=== PATIENT | female | born 1965 | race Caucasian/White ===

== ENCOUNTER 2016-09-26 13:12 | Emergency (ER) | payer MEDICARE, MEDICAID ==
[2016-09-26] MEDS ORDERED: predniSONE 20 MG TABLET ONE (13:31)
[2016-09-26] MEDS: predniSONE 20 MG TABLET PO STA (13:33)
--- NOTE | 2016-09-26 13:34 | ED Physician Documentation ---
PD HPI DYSPNEA - Stated complaint Stated Complaint: SOA - Chief complaint Chief Complaint: Resp - History obtained from History obtained from: Patient, Family - History of Present Illness Timing - onset: How many days ago (4) Timing - onset during: Rest Timing - duration: Days (4) Timing - details: Gradual onset Pain level max: 3 Pain level now: 3 Inciting event(s): Exposure (ie smoke) (states smokes a pack per day) Improved by: Inhaler/neb (states she is almost out of her albuterol.), Rest Worsened by: Exertion, Coughing Associated symptoms: Cough, Wheezing, Chest pain / discomfort (with coughing). No: Fever, Hemoptysis, Palpitations, Diaphoresis, Bilateral edema, Unilateral edema, Anxiety Similar symptoms before: Diagnosis (COPD) Recently seen: Not recently seen Review of Systems Ten Systems: 10 systems reviewed and negative Constitutional: denies: Fever, Chills Ears: denies: Ear pain GI: denies: Nausea, Vomiting, Diarrhea Skin: denies: Rash Musculoskeletal: denies: Neck pain, Back pain Neurologic: denies: Focal weakness, Numbness, Headache PD PAST MEDICAL HISTORY - Past Medical History Past Medical History: Yes Cardiovascular: Hypertension Respiratory: Pneumonia Neuro: Headache/migraine, Peripheral neuropathy Endocrine/Autoimmune: Type 2 diabetes, HyPOthyroidism GI: Ulcers : Kidney stones Psych: Depression, Anxiety, Bipolar disorder Musculoskeletal: Fibromyalgia, Chronic back pain - Past Surgical History Past Surgical History: Yes General: Cholecystectomy, Appendectomy 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, 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 HEENT: Other - Present Medications Home Medications: Ambulatory Orders Medication Instructions Recorded Confirmed DULoxetine [Cymbalta] 60 mg PO DAILY 06/16/13 09/26/16 Levothyroxine Sodium [Levoxyl] 250 mcg PO DAILY 06/16/13 09/26/16 QUEtiapine [SEROquel] 600 mg PO DAILY 06/16/13 09/26/16 oxyCODONE/ACET 5/325 [Percocet 5 5 mg PO DAILY 06/16/13 09/26/16 mg/325 mg] Glipizide 5 mg PO DAILY #30 tablet 09/05/14 09/26/16 Oxymorphone HCl [Oxymorphone HCl 10 mg PO DAILY 09/05/14 09/26/16 ER] Syring-Needl,Disp,Insul,0.3 ml 1 each MC DAILY #30 disp.syrin 09/05/14 09/26/16 [Insulin Syringe] Albuterol Sulfate [Proair Hfa 8.5 gm IH QID #1 hfa.aer.ad 07/25/15 09/26/16 Inhaler] Polyethylene Glycol 3350 [Miralax] 17 gm PO Q2H PRN #238 bottle 07/25/15 Albuterol Sulf [Ventolin Hfa 2 puffs INH Q4HR PRN #1 inhaler 09/26/16 Inhaler] Alprazolam [Xanax] 1 mg PO QPM PRN #5 tablet 09/26/16 Insulin Glargine [Lantus] 40 unit SUBQ QPM 09/26/16 09/26/16 Ipratropium/Albuterol [Combivent 1 puffs IH Q6H PRN #1 aer.w.adap 09/26/16 Respimat] Prednisone 40 mg PO DAILY #10 tablet 09/26/16 - Allergies Allergies/Adverse Reactions: Allergies Allergy/AdvReac Type Severity Reaction Status Date / Time No Known Drug Allergies Allergy Verified 09/26/16 13:19 - Social History Does the pt smoke?: Yes Smoking Status: Current every day smoker Does the pt drink ETOH?: No Does the pt have substance abuse?: No - Immunizations Immunizations are current?: Yes - POLST Patient has POLST: No PD ED PE NORMAL - Vitals Vital signs reviewed: Yes - General General: Alert and oriented X 3, No acute distress, Well developed/nourished - HEENT HEENT: PERRL, Moist mucous membranes - Neck Neck: Supple, no meningeal sign - Cardiac Cardiac: RRR, Strong equal pulses - Respiratory Respiratory: No respiratory distress, Other (Decreased breath sounds and wheezing bilaterally) - Abdomen Abdomen: Soft, Non tender, Non distended - Derm Derm: Warm and dry - Extremities Extremities: No edema, No calf tenderness / cord - Neuro Neuro: Alert and oriented X 3 - Psych Psych: Normal mood, Normal affect Results - Vitals Vitals: Vital Signs - 24 hr 09/26/16 09/26/16 09/26/16 13:15 13:35 13:50 Temperature 36.6 C Heart Rate 110 H 103 H 102 H Respiratory 23 18 18 Rate Blood Pressure 156/86 H 133/69 H O2 Saturation 96 97 09/26/16 09/26/16 14:35 15:13 Temperature Heart Rate 104 H 104 H Respiratory 18 15 Rate Blood Pressure 132/60 H O2 Saturation 99 Oxygen O2 Source Room air - Rads (name of study) cxr Radiology: Prelim report reviewed, EMP read contemporaneously, See rad report ( Subtle biapical pruning of the pulmonary vasculature, suggesting COPD. No acute cardiopulmonary abnormality. ) PD MEDICAL DECISION MAKING - ED course Complexity details: reviewed results, re-evaluated patient, considered differential, d/w patient, d/w family ED course: Patient presents to the emergency department with what appears to be a COPD flare. Feels better after steroids and albuterol and DuoNeb treatment. No hypoxia. No respiratory distress. No pneumonia. No fever. No sepsis. Will prescribe inhalers and steroids for home and have her follow-up with her doctor. She did ask if I could prescribe her a small amount of her Xanax as she is currently out of this. This was done. Patient counseled regarding signs and symptoms for which I believe and urgent re-evaluation would be necessary. Patient with good understanding of and agreement to plan and is comfortable going home at this time This document was made in part using voice recognition software. While efforts are made to proofread this document, sound alike and grammatical errors may occur. Departure - Departure Disposition: 01 Home, Self Care Clinical Impression: COPD exacerbation Condition: Good Instructions: ED COPD Flare Follow-Up: your,doctor in 1 week [Other] Prescriptions: Albuterol Sulf [Ventolin Hfa Inhaler] 2 puffs INH Q4HR PRN #1 inhaler PRN Reason: Wheezing Ipratropium/Albuterol [Combivent Respimat] 1 puffs IH Q6H PRN #1 aer.w.adap PRN Reason: dyspnea Prednisone 40 mg PO DAILY #10 tablet Alprazolam [Xanax] 1 mg PO QPM PRN #5 tablet PRN Reason: Anxiety Comments: Return if you worsen. Your blood pressure was elevated today on check in to the emergency department. This does not mean that you have hypertension, it is a common phenomenon to check into the emergency department and have elevated blood pressure. I recommend that you see your primary care physician within the week to have it rechecked when you're feeling better. Discharge Date/Time: 09/26/16 15:15
[2016-09-26] MEDS: IPRATROPIUM/ALBUTEROL 3 ML NEB INH STA (13:35)
[2016-09-26] MEDS ORDERED: IPRATROPIUM/ALBUTEROL 3 ML NEB INH ONE (13:36)
[2016-09-26] MEDS: ALBUTEROL NEB 2.5 MG/3 ML INH STA (14:35)
[2016-09-26] MEDS ORDERED: ALBUTEROL NEB 2.5 MG/3 ML INH ONE (14:37)
[2016-09-26 15:15] VITALS: BP 132/60
--- NOTE | 2016-09-26 15:26 | XRAY Preliminary Report ---
Exam: XR Chest 2 View PA/LAT IMPRESSION: 1. Subtle biapical pruning of the pulmonary vasculature, suggesting COPD. 2. No acute cardiopulmonary abnormality. [facility]
--- NOTE | 2016-09-26 15:28 | XRAY Report ---
EXAM: CHEST RADIOGRAPHY EXAM DATE: 09/26/2016 02:04 PM. CLINICAL HISTORY: Cough and dyspnea. COMPARISON: Chest radiograph and CTA chest 10/11/2014. TECHNIQUE: 2 views. FINDINGS: Lungs/Pleura: Normal volumes. Subtle biapical pruning of the pulmonary vasculature. No focal consolid ation, pleural effusion, or pneumothorax. Mediastinum: Normal cardiomediastinal contour. Other: Anterior fusion hardware in the lower cervical spine. IMPRESSION: 1. Subtle biapical pruning of the pulmonary vasculature, suggesting COPD. 2. No acute cardiopulmonary abnormality. [facility] Referring Provider Line: [phone]
== END 2016-09-26 15:15 | disposition home or self-care (01) ==
LOC: ED 13:12
DX: J44.1 Chronic obstructive pulmonary disease with (acute) exacerbation (principal); I10 Essential (primary) hypertension; E11.42 Type 2 diabetes mellitus with diabetic polyneuropathy; Z79.4 Long term (current) use of insulin; E03.9 Hypothyroidism, unspecified; M79.7 Fibromyalgia; Z87.11 Personal history of peptic ulcer disease; Z87.442 Personal history of urinary calculi; F17.200 Nicotine dependence, unspecified, uncomplicated
CPT/HCPCS: 71020; 94640; 99283; 99284

== ENCOUNTER 2016-11-05 18:23 | Emergency (ER) | payer MEDICARE, MEDICAID ==
[2016-11-05] MEDS ORDERED: oxyCOD/ACETAMIN 5 MG/325 MG TABLET PO STA (21:05)
[2016-11-05] MEDS ORDERED: DEXAMETHASONE 10 MG/ML VIAL IVP STA (21:05)
[2016-11-05] MEDS ORDERED: IPRATROPIUM/ALBUTEROL 3 ML NEB INH STA (21:05)
--- NOTE | 2016-11-05 21:06 | ED Physician Documentation ---
PD HPI ALTERED MENTAL STATUS - Stated complaint Stated Complaint: LETHARGIC - Chief complaint Chief Complaint: General - History obtained from History obtained from: Patient, Family - History of Present Illness Timing - onset: How many days ago (4-5 days of general weakness, feeling off balance, falling, aches and chills.) Timing - duration: Days Timing - details: Gradual onset, Still present Quality / character: Less responsive (tired and weak, with cough and wheezing. Using MDI at home). No: Disoriented, Memory Loss, Agitated Associated symptoms: Dyspnea, Cough, General weakness. No: Fever, Stiff neck, NVD (but less PO intake) Contributing factors: Diabetic, COPD, Recent illness (has current cough productive green sputum). No: Anticoagulated, New medication, Recent med change Basline status: Alert and oriented X 3, Ambulatory Similar symptoms before: Diagnosis (sepsis in the past, with pneumonia) Recently seen: Not recently seen Review of Systems Constitutional: reports: Chills, Myalgias, Fatigue. denies: Fever Nose: reports: Congestion. denies: Rhinorrhea / runny nose Throat: denies: Sore throat Cardiac: denies: Chest pain / pressure, Palpitations Respiratory: reports: Dyspnea, Cough, Wheezing GI: denies: Abdominal Pain, Nausea, Vomiting, Constipation, Diarrhea : denies: Dysuria, Frequency Skin: denies: Rash Musculoskeletal: denies: Extremity swelling Neurologic: reports: Generalized weakness. 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 HEENT: Other - Present Medications Home Medications: Ambulatory Orders Medication Instructions Recorded Confirmed DULoxetine [Cymbalta] 60 mg PO DAILY 06/16/13 09/26/16 Levothyroxine Sodium [Levoxyl] 250 mcg PO DAILY 06/16/13 09/26/16 QUEtiapine [SEROquel] 600 mg PO DAILY 01/03/14 04/15/17 oxyCODONE/ACET 5/325 [Percocet 5 5 mg PO DAILY 06/16/13 09/26/16 mg/325 mg] Glipizide 5 mg PO DAILY #30 tablet 09/05/14 09/26/16 Oxymorphone HCl [Oxymorphone HCl 10 mg PO DAILY 09/05/14 09/26/16 ER] Syring-Needl,Disp,Insul,0.3 ml 1 each MC DAILY #30 disp.syrin 09/05/14 09/26/16 [Insulin Syringe] Albuterol Sulfate [Proair Hfa 8.5 gm IH QID #1 hfa.aer.ad 07/25/15 09/26/16 Inhaler] Polyethylene Glycol 3350 [Miralax] 17 gm PO Q2H PRN #238 bottle 07/25/15 Albuterol Sulf [Ventolin Hfa 2 puffs INH Q4HR PRN #1 inhaler 09/26/16 Inhaler] Alprazolam [Xanax] 1 mg PO QPM PRN #5 tablet 09/26/16 Insulin Glargine [Lantus] 40 unit SUBQ QPM 09/26/16 09/26/16 Ipratropium/Albuterol [Combivent 1 puffs IH Q6H PRN #1 aer.w.adap 09/26/16 Respimat] Prednisone 40 mg PO DAILY #10 tablet 09/26/16 Azithromycin [Zithromax] 250 mg PO DAILY #6 tablet 11/05/16 Dexamethasone [Decadron] 4 mg PO DAILY #5 tablet 11/05/16 - Allergies Allergies/Adverse Reactions: Allergies Allergy/AdvReac Type Severity Reaction Status Date / Time No Known Drug Allergies Allergy Verified 09/26/16 13:19 - Social History Does the pt smoke?: Yes Smoking Status: Current every day smoker Does the pt drink ETOH?: No Does the pt have substance abuse?: No - Immunizations Immunizations are current?: Yes - POLST Patient has POLST: No PD ED PE NORMAL - Vitals Vital signs reviewed: Yes - General General: Alert and oriented X 3, No acute distress (seems tired and sleepy but not lethargic per se. ), Well developed/nourished - HEENT HEENT: Atraumatic, Pharynx benign - Neck Neck: Supple, no meningeal sign, No adenopathy - Cardiac Cardiac: RRR, No murmur - Respiratory Respiratory: No respiratory distress. No: Clear bilaterally (diffuse moderate wheezing, with cough) - Abdomen Abdomen: Normal bowel sounds, Soft, Non tender, Non distended - Female Female : Deferred - Rectal Rectal: Deferred - Back Back: No CVA TTP - Derm Derm: Normal color, Warm and dry - Extremities Extremities: No tenderness to palpate, Normal ROM s pain, No edema, No calf tenderness / cord - Neuro Neuro: Alert and oriented X 3, blood typer 2-12 intact, No motor deficit, Normal speech Results - Vitals Vitals: Oxygen O2 Source Room air - Labs Labs: Laboratory Tests 11/05/16 11/05/16 11/05/16 18:39 19:15 21:19 WBC 11.8 H RBC 4.80 Hgb 14.5 Hct 43.7 MCV 91.2 MCH 30.2 MCHC 33.1 RDW 13.5 Plt Count 324 MPV 8.1 Neut # Not Reportable Lymph # Not Reportable Wilkes # Not Reportable Eos # Not Reportable Baso # Not Reportable Absolute Nucleated RBC Not Reportable Total Counted 100 Band Neuts % (Manual) 1 Neutrophils # (Manual) 9.6 H Lymphocytes # (Manual) 1.7 Monocytes # (Manual) 0.5 Eosinophils # (Manual) 0.1 Nucleated RBCs Not Reportable Differential Comment MANUAL DIFFERENTIAL Platelet Estimate NORMAL (130-450,000) RBC Morph Micro Appear NORMAL APPEARANCE VBG pH VBG pCO2 VBG pO2 VBG HCO3 VBG Total CO2 VBG O2 Saturation VBG Base Excess Sodium Potassium Chloride Carbon Dioxide Anion Gap BUN Creatinine Estimated GFR (MDRD) Glucose POC Whole Bld Glucose 69 L 94 Lactic Acid Calcium Magnesium Total Bilirubin AST ALT Alkaline Phosphatase Total Protein Albumin Globulin Albumin/Globulin Ratio Lipase Urine Color Urine Clarity Urine pH Ur Specific [place] Urine Protein Urine Glucose (UA) Urine Ketones Urine Occult Blood Urine Nitrite Urine Bilirubin Urine Urobilinogen Ur Leukocyte Esterase Ur Microscopic Review Urine Culture Comments 11/05/16 11/05/16 11/05/16 21:19 21:19 21:19 WBC RBC Hgb Hct MCV MCH MCHC RDW Plt Count MPV Neut # Lymph # Wilkes # Eos # Baso # Absolute Nucleated RBC Total Counted Band Neuts % (Manual) Neutrophils # (Manual) Lymphocytes # (Manual) Monocytes # (Manual) Eosinophils # (Manual) Nucleated RBCs Differential Comment Platelet Estimate RBC Morph Micro Appear VBG pH 7.340 VBG pCO2 54.8 H VBG pO2 29.2 VBG HCO3 28.9 H VBG Total CO2 30.6 H VBG O2 Saturation 62.1 VBG Base Excess 1.8 Sodium 136 Potassium 3.9 Chloride 97 L Carbon Dioxide 31 Anion Gap 8.0 BUN 7 Creatinine 0.6 Estimated GFR (MDRD) 105 Glucose 146 H POC Whole Bld Glucose Lactic Acid 1.0 Calcium 9.1 Magnesium 1.8 Total Bilirubin 0.3 AST 37 ALT 36 Alkaline Phosphatase 142 H Total Protein 8.0 Albumin 3.8 Globulin 4.2 Albumin/Globulin Ratio 0.9 L Lipase 20 L Urine Color Urine Clarity Urine pH Ur Specific [place] Urine Protein Urine Glucose (UA) Urine Ketones Urine Occult Blood Urine Nitrite Urine Bilirubin Urine Urobilinogen Ur Leukocyte Esterase Ur Microscopic Review Urine Culture Comments 11/05/16 22:01 WBC RBC Hgb Hct MCV MCH MCHC RDW Plt Count MPV Neut # Lymph # Wilkes # Eos # Baso # Absolute Nucleated RBC Total Counted Band Neuts % (Manual) Neutrophils # (Manual) Lymphocytes # (Manual) Monocytes # (Manual) Eosinophils # (Manual) Nucleated RBCs Differential Comment Platelet Estimate RBC Morph Micro Appear VBG pH VBG pCO2 VBG pO2 VBG HCO3 VBG Total CO2 VBG O2 Saturation VBG Base Excess Sodium Potassium Chloride Carbon Dioxide Anion Gap BUN Creatinine Estimated GFR (MDRD) Glucose POC Whole Bld Glucose Lactic Acid Calcium Magnesium Total Bilirubin AST ALT Alkaline Phosphatase Total Protein Albumin Globulin Albumin/Globulin Ratio Lipase Urine Color YELLOW Urine Clarity CLEAR Urine pH 6.0 Ur Specific [place] 1.010 Urine Protein NEGATIVE Urine Glucose (UA) >=1000 H Urine Ketones NEGATIVE Urine Occult Blood NEGATIVE Urine Nitrite NEGATIVE Urine Bilirubin NEGATIVE Urine Urobilinogen 0.2 (NORMAL) Ur Leukocyte Esterase NEGATIVE Ur Microscopic Review NOT INDICATED Urine Culture Comments NOT INDICATED - Rads (name of study) CXR Radiology: Prelim report reviewed (bronchial thickening c/w bronchitis; no pneumonia) head CT Radiology: Prelim report reviewed (no acute process) PD MEDICAL DECISION MAKING - ED course Complexity details: reviewed results (no signs of sepsis, pneumonia, ICH - is tired and seems slightly slow to answer questions. Sats are good, but does have cough and wheezing. Seems a bit perkier here. In setting of COPD, would give steroids/ abx. She has inhaler at home.), considered differential, d/w patient Departure - Departure Disposition: 01 Home, Self Care Clinical Impression: Bronchitis, Asthma exacerbation in COPD, Decreased energy Condition: Stable Record reviewed to determine appropriate education?: Yes Instructions: ED Bronchitis Asthmatic Follow-Up: Lily Izaguirre PA-C [Primary Care Provider] - Prescriptions: Dexamethasone [Decadron] 4 mg PO DAILY #5 tablet Azithromycin [Zithromax] 250 mg PO DAILY #6 tablet Comments: Usual medications. Drink fluids regularly. Eat some small meal at least regularly. Zithromax and Decadron as directed for 5 more days for the bronchitis. Recheck with PCP next week. Discharge Date/Time: 11/05/16 23:13
[2016-11-05] MEDS ORDERED: DEXAMETHASONE 10 MG/ML VIAL ONE ×2 (21:07→23:00)
[2016-11-05] MEDS ORDERED: oxyCOD/ACETAMIN 5 MG/325 MG TABLET PO ONE (21:20)
[2016-11-05 21:26] LABS: HCT - HEMATOCRIT 43.7 % (37.0-47.0)
[2016-11-05 21:27] LABS: VBG BASE EXCESS 1.8 mmol/L (-2 - +2); VBG OXYGEN SATURATION 62.1 % (60-80); VBG PH 7.34 (7.31-7.41); VBG TOTAL CO2 30.6 mmol/L (24-29)
[2016-11-05 21:36] LABS: BASOPHILS % (AUTO) 0.7 %; EOSINOPHILS % (AUTO) 0.5 %; HGB - HEMOGLOBIN 14.5 g/dL (12.0-16.0); LYMPHOCYTES % (AUTO) 14.8 %; MEAN CORPUSCULAR HEMOGLOBIN 30.2 pg (27.0-31.0); MEAN CORPUSCULAR HGB CONC 33.1 g/dL (32.0-36.0); MEAN CORPUSCULAR VOLUME 91.2 fL (81.0-99.0); MEAN PLATELET VOLUME 8.1 fL (7.9-10.8); MONOCYTES % (AUTO) 8.7 %; NEUTROPHILS % (AUTO) 75.3 %; RED CELL DISTRIBUTION WIDTH 13.5 % (12.0-15.0); UNCORRECTED WHITE BLOOD COUNT 11.8 x10^3/uL; WHITE BLOOD COUNT 11.8 x10^3/uL (4.8-10.8)
[2016-11-05 21:40] LABS: ALBUMIN/GLOBULIN RATIO 0.9 (1.0-2.2); BILIRUBIN,TOTAL 0.3 mg/dL (0.2-1.0); CALCIUM 9.1 mg/dL (8.5-10.3); CREATININE 0.6 mg/dL (0.4-1.0); MAGNESIUM 1.8 mg/dL (1.7-2.8); POTASSIUM 3.9 mmol/L (3.5-5.0)
[2016-11-05 21:54] LABS: BAND NEUTROPHILS % (MANUAL) 1 %; EOSINOPHILS % (MANUAL) 1 %; LYMPHOCYTES % (MANUAL) 14 %; NEUTROPHILS % (MANUAL) 80 %; TOTAL CELLS COUNTED 100
[2016-11-05 21:55] LABS: NP AUTO DIFFERENTIAL? YES; NP MAN DIFFERENTIAL? NO; PLATELET ESTIMATE, MANUAL NORMAL (130-450,000) (NORMAL)
[2016-11-05] MEDS ORDERED: IPRATROPIUM/ALBUTEROL 3 ML NEB INH ONE (21:56)
--- NOTE | 2016-11-05 22:00 | CT Preliminary Report ---
Exam: CT Head W/O IMPRESSION: Normal head CT. [facility] SITE ID: [id number]
[2016-11-05 22:08] LABS: BILIRUBIN,URINE NEGATIVE (NEGATIVE)
--- NOTE | 2016-11-05 22:12 | XRAY Report ---
EXAM: CHEST RADIOGRAPHY EXAM DATE: 11/05/2016 09:47 PM. CLINICAL HISTORY: Cough and dyspnea/wheeze. COMPARISON: 09/26/2016. TECHNIQUE: 2 views. FINDINGS: Lungs/Pleura: Mild diffuse bronchial thickening. Normal lung volumes. No confluent lung consolidation . No pleural effusion or pneumothorax. Mediastinum: Heart and mediastinal contours are unremarkable. Other: None. IMPRESSION: Bronchial thickening suggesting bronchitis or reactive airway disease. No focal airspace consolidation. [facility] Referring Provider Line: [phone] SITE ID: [id number]
[2016-11-05 22:14] LABS: UA CHARGE (STRIP ONLY) YES; UR CULTURE IF IND NOT INDICATED
[2016-11-05] MEDS ORDERED: AZITHROMYCIN 250 MG TABLET PO STA (22:53)
[2016-11-05] MEDS ORDERED: DEXAMETHASONE 10 MG/ML VIAL PO STA (22:53)
[2016-11-05] MEDS ORDERED: CHERRY SYRUP 10 ML UDC PO ONE (23:00)
[2016-11-05] MEDS ORDERED: AZITHROMYCIN 250 MG TABLET PO ONE (23:00)
[2016-11-05 23:14] VITALS: BP 126/79
--- NOTE | 2016-11-06 12:45 | CT Report ---
EXAM: CT HEAD EXAM DATE: 11/05/2016 09:39 PM. CLINICAL HISTORY: Fell , with left parietal trauma. No loss of consciousness. Patient has been feelin g off balance for 4 months. COMPARISON: 10/11/2014. TECHNIQUE: Multiaxial CT images were obtained from the foramen magnum to the vertex. IV contrast: Non e. Reformats: Coronal. In accordance with CT protocol optimization, one or more of the following dose reduction techniques w ere utilized for this exam: automated exposure control, adjustment of mA and/or KV based on patient s ize, or use of iterative reconstructive technique. FINDINGS: Parenchyma: No intraparenchymal hemorrhage. No evidence of mass, midline shift, or CT findings of inf arction. Lopez-white differentiation is distinct. Extraaxial Spaces: Normal for age. No subdural or epidural collections identified. Ventricles: Normal in size and position. Sinuses: Imaged paranasal sinuses, orbits, and mastoids show no significant abnormality. Bones: No evidence of fracture or calvarial defect. Other: None. IMPRESSION: Normal head CT. [facility] Referring Provider Line: [phone] SITE ID: [id number]
== END 2016-11-05 23:13 | disposition home or self-care (01) ==
LOC: ED 18:23
DX: J44.1 Chronic obstructive pulmonary disease with (acute) exacerbation (principal); J45.901 Unspecified asthma with (acute) exacerbation; E11.9 Type 2 diabetes mellitus without complications; Z79.4 Long term (current) use of insulin; I10 Essential (primary) hypertension; E03.9 Hypothyroidism, unspecified; M79.7 Fibromyalgia; Z87.11 Personal history of peptic ulcer disease; Z87.442 Personal history of urinary calculi; F17.200 Nicotine dependence, unspecified, uncomplicated
CPT/HCPCS: 36415; 70450; 71020; 80053; 81003; 82803; 83605; 83690; 83735; 85025; 94640; 96374; 99284; A9270; J7620; 81001; 87086

== ENCOUNTER 2017-05-29 07:31 | Emergency (ER) | payer MEDICARE, MEDICAID ==
[2017-05-29] MEDS ORDERED: LIDOCAINE VISCOUS 2% 15 ML UDC MM STA (08:12)
[2017-05-29] MEDS ORDERED: SODIUM CHLORIDE 0.9% 1,000 ML IV ONE (08:12)
[2017-05-29] MEDS ORDERED: MAG HYDROX/AL HYDROX/SIMETH 30 ML UDC PO STA (08:12)
[2017-05-29] MEDS ORDERED: ONDANSETRON 4 MG/2 ML VIAL IVP STA (08:13)
--- NOTE | 2017-05-29 08:22 | ED Physician Documentation ---
PD HPI NVD - Stated complaint Stated Complaint: ABD PX - Chief complaint Chief Complaint: Abd Pain - History obtained from History obtained from: Patient, Family - History of Present Illness Timing - onset: How many days ago (5) Timing - duration: Days (5) Timing - details: Gradual onset, Still present Associated symptoms: Abdominal pain Contributing factors: Diabetes, Other (uses oxycodone daily) Improved by: Vomiting Worsened by: Eating, Position, Palpation Similar symptoms before: Diagnosis (SBO) Recently seen: Emergency Dept - Additonal information Additional information: 51-year-old female diabetic on regular oxycodone has developed nausea vomiting and now diarrhea as well. She was seen in the emergency department 2 days ago with abdominal pain and vomiting. She was given a dose of pain medication, improved, and she was prescribed a short course of hydrocodone. On her SON form it indicates that she filled her prescription for 112 oxycodone yesterday. I discussed with the patient the possibility of narcotic withdrawal and she does not feel that this is likely the cause of this even though she has not been able to hold down her pain medication. She relates that she was having this pain for several days prior to coming in to the ED and she continues to have the pain. She was constipated prior to her last visit and she has taken a suppository and now has had a large amount out. She points to the epigastric area as her source of pain. Review of Systems Constitutional: reports: Fatigue. denies: Fever, Chills Eyes: denies: Decreased vision Ears: denies: Ear pain Nose: denies: Rhinorrhea / runny nose, Congestion Throat: denies: Sore throat Cardiac: denies: Chest pain / pressure, Palpitations Respiratory: denies: Dyspnea, Cough, Wheezing GI: reports: Abdominal Pain, Nausea, Vomiting, Diarrhea : denies: Dysuria, Frequency Skin: denies: Rash Musculoskeletal: reports: Neck pain, Back pain Neurologic: denies: Generalized weakness, Focal weakness, Numbness PD PAST MEDICAL HISTORY - Past Medical History Past Medical History: Yes Cardiovascular: Hypertension Respiratory: COPD, Pneumonia Neuro: Headache/migraine, Peripheral neuropathy Endocrine/Autoimmune: Type 2 diabetes, HyPOthyroidism GI: Ulcers : Kidney stones Psych: Depression, Anxiety, Bipolar disorder Musculoskeletal: Fibromyalgia, Chronic back pain - Past Surgical History Past Surgical History: Yes General: Cholecystectomy, Appendectomy Ortho: 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, 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 HEENT: Other - Present Medications Home Medications: Ambulatory Orders Medication Instructions Recorded Confirmed DULoxetine [Cymbalta] 60 mg PO DAILY 06/16/13 05/29/17 Levothyroxine Sodium [Levoxyl] 250 mcg PO DAILY 06/16/13 05/29/17 QUEtiapine [SEROquel] 600 mg PO DAILY 06/16/13 05/29/17 oxyCODONE/ACET 5/325 [Percocet 5 5 mg PO DAILY 06/16/13 05/29/17 mg/325 mg] Syring-Needl,Disp,Insul,0.3 ml 1 each MC DAILY #30 disp.syrin 09/05/14 05/29/17 [Insulin Syringe] Albuterol Sulfate [Proair Hfa 8.5 gm IH QID #1 hfa.aer.ad 07/25/15 05/29/17 Inhaler] Alprazolam [Xanax] 1 mg PO QPM PRN #5 tablet 09/26/16 05/29/17 Insulin Glargine [Lantus] 50 unit SUBQ QPM 09/26/16 05/29/17 Ipratropium/Albuterol [Combivent 1 puffs IH Q6H PRN #1 aer.w.adap 09/26/1605/29 Respimat] Hydrocodone/Acetaminophen 1 - 2 each PO Q6H PRN #14 tablet 05/27/17 05/29/17 [Hydrocodon-Acetaminophen 5-325] Insulin Lispro [HumaLOG] 20 unit SUBQ BID 05/27/17 05/29/17 Ondansetron Odt [Zofran] 4 mg TL Q6H PRN #10 tablet 05/27/17 05/29/17 - Allergies Allergies/Adverse Reactions: Allergies Allergy/AdvReac Type Severity Reaction Status Date / Time No Known Drug Allergies Allergy Verified 05/29/17 07:40 - Social History Does the pt smoke?: Yes Smoking Status: Current every day smoker Does the pt drink ETOH?: No Does the pt have substance abuse?: No - Immunizations Immunizations are current?: Yes - POLST Patient has POLST: No PD ED PE NORMAL - Vitals Vital signs reviewed: Yes - General General: Alert and oriented X 3, Well developed/nourished, Other (51 y/o female appears to be in pain with 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 ) - HEENT HEENT: Atraumatic, PERRL, EOMI, Other (The left TM is clear the right is obscured by cerumen. ) - Neck Neck: Supple, no meningeal sign, No bony TTP - Cardiac Cardiac: RRR, No murmur - Respiratory Respiratory: No respiratory distress, Clear bilaterally - Abdomen Abdomen: Normal bowel sounds, Soft, Other (There is mild epigastric tenderness specifically and not tenderness elsewhere.) - Back Back: No CVA TTP, No spinal TTP - Derm Derm: Normal color, Warm and dry, No rash - Extremities Extremities: No deformity, No edema - Neuro Neuro: No motor deficit, No sensory deficit Eye Opening: Spontaneous Motor: Obeys Commands Verbal: Oriented GCS Score: 15 - Psych Psych: Normal mood Results - Vitals Vitals: Vital Signs - 24 hr 05/29/17 05/29/17 05/29/17 07:35 08:32 09:25 Temperature 98.2 C H 36.8 C Heart Rate 93 92 91 Respiratory 18 18 18 Rate Blood Pressure 177/106 H 187/103 H 178/100 H O2 Saturation 96 96 96 05/29/17 10:23 Temperature Heart Rate 90 Respiratory 18 Rate Blood Pressure 148/90 H O2 Saturation 97 Oxygen O2 Source Room air - Labs Labs: Laboratory Tests 05/29/17 05/29/17 05/29/17 08:50 08:50 08:50 WBC 16.1 H RBC 4.53 Hgb 14.4 Hct 41.4 MCV 91.4 MCH 31.8 H MCHC 34.8 RDW 14.3 Plt Count 314 MPV 7.5 L Neut # 13.3 H Lymph # 1.7 [place] # 1.0 Eos # 0.1 Baso # 0.0 Absolute Nucleated RBC 0.00 Nucleated RBC % 0.0 Sodium 132 L Potassium 3.9 Chloride 88 L Carbon Dioxide 28 Anion Gap 16.0 H BUN 15 Creatinine 0.7 Estimated GFR (MDRD) 88 L Glucose 291 H Calcium 9.9 Total Bilirubin 0.4 AST 27 ALT 28 Alkaline Phosphatase 119 Troponin I < 0.04 Total Protein 8.3 H Albumin 4.4 Globulin 3.9 Albumin/Globulin Ratio 1.1 Lipase 27 Urine Color Urine Clarity Urine pH Ur Specific Speculator Urine Protein Urine Glucose (UA) Urine Ketones Urine Occult Blood Urine Nitrite Urine Bilirubin Urine Urobilinogen Ur Leukocyte Esterase Ur Microscopic Review Urine Culture Comments 05/29/17 08:53 WBC RBC Hgb Hct MCV MCH MCHC RDW Plt Count MPV Neut # Lymph # [place] # Eos # Baso # Absolute Nucleated RBC Nucleated RBC % Sodium Potassium Chloride Carbon Dioxide Anion Gap BUN Creatinine Estimated GFR (MDRD) Glucose Calcium Total Bilirubin AST ALT Alkaline Phosphatase Troponin I Total Protein Albumin Globulin Albumin/Globulin Ratio Lipase Urine Color DARK YELLOW Urine Clarity c Urine pH 6.0 Ur Specific Speculator 1.025 Urine Protein NEGATIVE Urine Glucose (UA) 500 H Urine Ketones NEGATIVE Urine Occult Blood NEGATIVE Urine Nitrite NEGATIVE Urine Bilirubin NEGATIVE Urine Urobilinogen 0.2 (NORMAL) Ur Leukocyte Esterase NEGATIVE Ur Microscopic Review NOT INDICATED Urine Culture Comments NOT INDICATED Procedures - IVC sono (time) 0818 Bedside IVC sono: IVC measures (cm) (1.11), IVC collapsed c insp (cm) (complete) , Dehydration PD MEDICAL DECISION MAKING - ED course Complexity details: reviewed old records, reviewed results, re-evaluated patient , considered differential, d/w patient, d/w family ED course: 51 y/o female diabetic with epigastric pain, vomiting and dehydration has continued pain after her recent visit to the ED. The timing of the visit initially is consistent with narcotic withdrawal. She was seen here on 05-27-17 with vomiting and abdominal pain and her refill was on 05-28-17. Her pain persisted after her refill and her sugars have been high and she is dehydrated. She is given a GI cocktail with minimal relief and when she is given IV dilaudid she is almost instantly better. 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 I discussed with her the likely gandhi that this is narcotic withdrawl as she was not able to keep her narcotic down yesterday and she reluctantly agrees that this is the most likely explanation. Her sugars have been running high and she has not been using sliding scale insulin because she does not understand how to dose it. She is in the process of making an appointment for diabetic teaching at the [facility] clinic. Today we provided IV hydration and IV regular insulin 5units. 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
[2017-05-29] MEDS ORDERED: HYDROmorphone 1 MG/ML SYRINGE IVP STA (08:58)
[2017-05-29 09:31] LABS: BASOPHILS % (AUTO) 0.3 %; EOSINOPHILS # (AUTO) 0.1 10^3/uL (0.0-0.7); EOSINOPHILS % (AUTO) 0.4 %; HCT - HEMATOCRIT 41.4 % (37.0-47.0); HGB - HEMOGLOBIN 14.4 g/dL (12.0-16.0); LYMPHOCYTES # (AUTO) 1.7 10^3/uL (1.5-3.5); LYMPHOCYTES % (AUTO) 10.4 %; MEAN CORPUSCULAR HEMOGLOBIN 31.8 pg (27.0-31.0); MEAN CORPUSCULAR HGB CONC 34.8 g/dL (32.0-36.0); MEAN CORPUSCULAR VOLUME 91.4 fL (81.0-99.0); MEAN PLATELET VOLUME 7.5 fL (7.9-10.8); MONOCYTES % (AUTO) 6.2 %; NEUTROPHILS # (AUTO) 13.3 10^3/uL (1.5-6.6); NEUTROPHILS % (AUTO) 82.7 %; RED BLOOD COUNT 4.53 10^6/uL (4.20-5.40); RED CELL DISTRIBUTION WIDTH 14.3 % (12.0-15.0); UNCORRECTED WHITE BLOOD COUNT 16.1 x10^3/uL; WHITE BLOOD COUNT 16.1 x10^3/uL (4.8-10.8)
[2017-05-29 09:44] LABS: ALBUMIN/GLOBULIN RATIO 1.1 (1.0-2.2); BILIRUBIN,TOTAL 0.4 mg/dL (0.2-1.0); CALCIUM 9.9 mg/dL (8.5-10.3); CREATININE 0.7 mg/dL (0.4-1.0); POTASSIUM 3.9 mmol/L (3.5-5.0); TOTAL PROTEIN 8.3 g/dL (6.7-8.2)
[2017-05-29] MEDS ORDERED: INSULIN REGULAR HUMAN 100 UNIT/1 ML 10 ML MDV IVP STA (09:45)
[2017-05-29 11:40] LABS: BILIRUBIN,URINE NEGATIVE (NEGATIVE); UA CHARGE (STRIP ONLY) YES; UR CULTURE IF IND NOT INDICATED
[2017-05-29 11:54] VITALS: BP 152/95
== END 2017-05-29 11:59 | disposition home or self-care (01) ==
LOC: ED 07:31
DX: E86.0 Dehydration (principal); R10.13 Epigastric pain; R11.2 Nausea with vomiting, unspecified; R19.7 Diarrhea, unspecified; F11.23 Opioid dependence with withdrawal; T40.2X5A Adverse effect of other opioids, initial encounter; E11.65 Type 2 diabetes mellitus with hyperglycemia; E11.42 Type 2 diabetes mellitus with diabetic polyneuropathy; Z79.4 Long term (current) use of insulin; I10 Essential (primary) hypertension; E03.9 Hypothyroidism, unspecified; F17.200 Nicotine dependence, unspecified, uncomplicated
CPT/HCPCS: 36415; 80053; 81003; 83690; 84484; 85025; 96361; 96374; 96375; 99284; A9270; J1170; J1815; 81001; 87086

== ENCOUNTER 2017-08-24 13:03 | Emergency (ER) | payer MEDICARE, MEDICAID ==
--- NOTE | 2017-08-24 13:52 | ED Physician Documentation ---
PD HPI FOCAL NEURO - Stated complaint Stated Complaint: LT SIDE FACIAL DROOP - Chief complaint Chief Complaint: Neuro - History obtained from History obtained from: Patient - History of Present Illness Timing - onset: Today (she awoke with left facial droop that has worsened through the morning. Has left sided headache and ear/faical pain as well.) Timing - duration: Hours Timing - details: Gradual onset, Still present Severity of deficit: Moderate Weakness: Face, Left. No: Arm, Hand, Leg, Foot Numbness: No: Face Associated symptoms: Headache. No: Nausea / vomiting, Head injury, Chest pain, Neck pain, Back pain, Fever Contributing factors: negative: Anticoagulated, Vascular dz, Atrial fibrillation Baseline status: positive: A&OX3, ambulatory, indep Similar symptoms before: Has not had sx before Recently seen: Not recently seen Review of Systems Constitutional: denies: Fever, Chills, Myalgias Eyes: denies: Loss of vision, Decreased vision, Photophobia Ears: denies: Ear pain, Drainage/discharge Nose: denies: Rhinorrhea / runny nose, Congestion Throat: denies: Sore throat Cardiac: denies: Chest pain / pressure, Palpitations Respiratory: denies: Dyspnea, Cough GI: denies: Abdominal Pain, Nausea, Vomiting : denies: Dysuria, Frequency Skin: denies: Rash, Lesions Neurologic: reports: Focal weakness (left face). 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 HEENT: Other - Present Medications Home Medications: Ambulatory Orders Medication Instructions Recorded Confirmed DULoxetine [Cymbalta] 60 mg PO DAILY 06/16/13 05/29/17 Levothyroxine Sodium [Levoxyl] 250 mcg PO DAILY 06/16/13 05/29/17 QUEtiapine [SEROquel] 600 mg PO DAILY 06/16/13 05/29/17 oxyCODONE/ACET 5/325 [Percocet 5 5 mg PO DAILY 06/16/13 05/29/17 mg/325 mg] Syring-Needl,Disp,Insul,0.3 ml 1 each MC DAILY #30 disp.syrin 09/05/14 05/29/17 [Insulin Syringe] Albuterol Sulfate [Proair Hfa 8.5 gm IH QID #1 hfa.aer.ad 07/25/15 05/29/17 Inhaler] Alprazolam [Xanax] 1 mg PO QPM PRN #5 tablet 09/26/16 05/29/17 Insulin Glargine [Lantus] 50 unit SUBQ QPM 09/26/16 05/29/17 Ipratropium/Albuterol [Combivent 1 puffs IH Q6H PRN #1 aer.w.adap 09/26/1605/29 Respimat] Hydrocodone/Acetaminophen 1 - 2 each PO Q6H PRN #14 tablet 05/27/17 05/29/17 [Hydrocodon-Acetaminophen 5-325] Insulin Lispro [HumaLOG] 20 unit SUBQ BID 05/27/17 05/29/17 Ondansetron Odt [Zofran] 4 mg TL Q6H PRN #10 tablet 05/27/17 05/29/17 Acyclovir 800 mg PO 5XD #30 tablet 08/24/17 Dexamethasone [Decadron] 4 mg PO DAILY #5 tablet 08/24/17 Oxycodone HCl/Acetaminophen 1 each PO Q6H PRN #15 tablet 08/24/17 [Percocet 5-325 mg Tablet] - Allergies Allergies/Adverse Reactions: Allergies Allergy/AdvReac Type Severity Reaction Status Date / Time No Known Drug Allergies Allergy Verified 05/29/17 07:40 - Social History Does the pt smoke?: Yes Smoking Status: Current every day smoker Does the pt drink ETOH?: No Does the pt have substance abuse?: No - Immunizations Immunizations are current?: Yes - POLST Patient has POLST: No PD ED PE NORMAL - Vitals Vital signs reviewed: Yes - General General: Alert and oriented X 3, No acute distress, Well developed/nourished - HEENT HEENT: PERRL, EOMI, Ears normal, Pharynx benign - Neck Neck: Supple, no meningeal sign, No adenopathy, No bruit - Cardiac Cardiac: RRR, No murmur - Respiratory Respiratory: Clear bilaterally - Abdomen Abdomen: Soft, Non tender - Derm Derm: Normal color, Warm and dry - Extremities Extremities: No deformity, No tenderness to palpate, Normal ROM s pain - Neuro Neuro: Alert and oriented X 3, Normal speech. No: groundsman 2-12 intact (left facial palsy around mouth and lower lid. Possible subtle involvement of forehead as well. ) Eye Opening: Spontaneous Motor: Obeys Commands Verbal: Oriented GCS Score: 15 - Psych Psych: Normal mood, Normal affect NIHSS - Level of Consciousness Level of consciousness: (0) Alert, Keenly responsive LOC Questions: (0) Answers both Q's correct LOC Commands: (0) Performs both correctly - Gaze Best Gaze: (0) Normal - Visual Visual: (0) No loss - Facial Palsy Facial Palsy: (1) Minor paralysis - Motor Arms (both separate) Motor Arm (right): (0) No drift Motor Arm (left): (0) No drift - Motor Legs (both separate) Motor Leg (right): (0) No drift Motor Leg (left): (0) No drift - Limb Ataxia Limb Ataxia: (0) Absent - Sensory Sensory: (0) Normal - Best Language Best Language: (0) No aphasia - Dysarthria Dysarthria: (0) Normal - Extinction and Inattention (formally neg Extinction and inattention: (0) No abnormality - Total Score/Results Total Score/Result: 1 Results - Vitals Vitals: Oxygen O2 Source Room air - Labs Labs: Laboratory Tests 08/24/17 08/24/17 08/24/17 13:14 14:22 14:22 WBC 9.1 RBC 4.42 Hgb 14.4 Hct 40.8 MCV 92.4 MCH 32.7 H MCHC 35.4 RDW 13.6 Plt Count 300 MPV 6.9 L Neut # 5.8 Lymph # 2.5 [place] # 0.5 Eos # 0.2 Baso # 0.1 Absolute Nucleated RBC 0.01 Nucleated RBC % 0.1 ESR 17 Sodium Potassium Chloride Carbon Dioxide Anion Gap BUN Creatinine Estimated GFR (MDRD) Glucose POC Whole Bld Glucose 213 H Calcium Magnesium Total Bilirubin AST ALT Alkaline Phosphatase Total Protein Albumin Globulin Albumin/Globulin Ratio Lipase 08/24/17 14:22 WBC RBC Hgb Hct MCV MCH MCHC RDW Plt Count MPV Neut # Lymph # [place] # Eos # Baso # Absolute Nucleated RBC Nucleated RBC % ESR Sodium 132 L Potassium 3.8 Chloride 97 L Carbon Dioxide 27 Anion Gap 8.0 BUN 10 Creatinine 0.8 Estimated GFR (MDRD) 75 L Glucose 152 H POC Whole Bld Glucose Calcium 9.3 Magnesium 1.7 Total Bilirubin 0.2 AST 25 ALT 26 Alkaline Phosphatase 105 Total Protein 7.7 Albumin 4.3 Globulin 3.4 Albumin/Globulin Ratio 1.3 Lipase 21 L - Rads (name of study) brain MRI Radiology: Prelim report reviewed (no acute process seen) PD MEDICAL DECISION MAKING - ED course Complexity details: reviewed results (facial drooping lower face with faint/ subtle involvement of the forehead (?) so was not certain of facial nerve vs. central and she had facial pain to left ear/head area, so got MRI imaging which was okay. More confidently then facial nerve palsy. ), re-evaluated patient, considered differential, d/w patient Departure - Departure Disposition: Home, Self Care Clinical Impression: Weakness on left side of face, Facial pain, Green palsy Condition: Stable Record reviewed to determine appropriate education?: Yes Instructions: ED [place] P[facility]y Follow-Up: Lily Izaguirre PA-C [Primary Care Provider] - Prescriptions: Acyclovir 800 mg PO 5XD #30 tablet Dexamethasone [Decadron] 4 mg PO DAILY #5 tablet Oxycodone HCl/Acetaminophen [Percocet 5-325 mg Tablet] 1 each PO Q6H PRN #15 tablet PRN Reason: Pain Comments: No signs of stroke, tumors, bleeding, other pathology on the MRI of the brain. It would then be consistent with Green palsy which is a inflammation of the facial nerve. This sometimes is caused by her viral inflammation and so we commonly treated with antiviral acyclovir 5 times a day for 6 days. We try to decrease inflammation of the nerve with Decadron steroid daily for 5 days. However if you find your blood sugars elevating excessively then stop that. Use Tylenol or ibuprofen if needed for pains. Add Percocet if needed for worse pain. Follow-up with your primary care this week, call for an appointment. Discharge Date/Time: 08/24/17 17:16
[2017-08-24] MEDS ORDERED: HYDROmorphone 1 MG/ML SYRINGE IVP STA ×2 (14:13→16:34)
[2017-08-24] MEDS ORDERED: ACETAMINOPHEN 325 MG TABLET PO STA (14:13)
[2017-08-24 14:29] LABS: BASOPHILS # (AUTO) 0.1 10^3/uL (0.0-0.1); BASOPHILS % (AUTO) 0.8 %; EOSINOPHILS # (AUTO) 0.2 10^3/uL (0.0-0.7); EOSINOPHILS % (AUTO) 1.7 %; HGB - HEMOGLOBIN 14.4 g/dL (12.0-16.0); LYMPHOCYTES # (AUTO) 2.5 10^3/uL (1.5-3.5); LYMPHOCYTES % (AUTO) 27.7 %; MEAN CORPUSCULAR HEMOGLOBIN 32.7 pg (27.0-31.0); MEAN CORPUSCULAR HGB CONC 35.4 g/dL (32.0-36.0); MEAN CORPUSCULAR VOLUME 92.4 fL (81.0-99.0); MEAN PLATELET VOLUME 6.9 fL (7.9-10.8); MONOCYTES # (AUTO) 0.5 10^3/uL (0.0-1.0); MONOCYTES % (AUTO) 5.9 %; NEUTROPHILS # (AUTO) 5.8 10^3/uL (1.5-6.6); NEUTROPHILS % (AUTO) 63.9 %; PLT - PLATELET COUNT 300 10^3/uL (130-450); RED BLOOD COUNT 4.42 10^6/uL (4.20-5.40); RED CELL DISTRIBUTION WIDTH 13.6 % (12.0-15.0); WHITE BLOOD COUNT 9.1 x10^3/uL (4.8-10.8)
[2017-08-24 14:48] LABS: ALBUMIN 4.3 g/dL (3.2-5.5); ALBUMIN/GLOBULIN RATIO 1.3 (1.0-2.2); BILIRUBIN,TOTAL 0.2 mg/dL (0.2-1.0); CALCIUM 9.3 mg/dL (8.5-10.3); CREATININE 0.8 mg/dL (0.4-1.0); MAGNESIUM 1.7 mg/dL (1.7-2.8); TOTAL PROTEIN 7.7 g/dL (6.7-8.2)
--- NOTE | 2017-08-24 16:04 | MRI Report ---
EXAM: MRI BRAIN WITHOUT CONTRAST EXAM DATE: 08/24/2017 03:44 PM. CLINICAL HISTORY: Left-sided facial droop, arm numbness COMPARISON: CT head 11/05/2016 TECHNIQUE: Multiplanar, multisequence T1-weighted and fluid-sensitive MR sequences of the brain were performed. Sequences optimized for routine evaluation. Other: None. IV Contrast: None. FINDINGS: Brain Volume: Normal for age. Parenchyma/Dura: No mass, acute infarct or hemorrhage. Few scattered subcortical T2/FLAIR hyperintens e white matter lesions. No parenchymal foci of susceptibility artifact. Ventricles/Cisterns: No hydrocephalus. No abnormal extra-axial fluid collection or hemorrhage. Orbits: Symmetric and unremarkable. Sella Turcica: The pituitary gland appears enlarged, measuring approximately 11 x 8 x 10 mm (AP by tr ansverse by craniocaudal) IAC: Symmetric and unremarkable. Vasculature: Normal signal flow void is seen in the major arterial structures at the skull base. Sinuses: No acute appearing sinus disease. Bones: No focal pathologic appearing marrow signal changes. Other: Moderate degenerative spondylosis of the visualized upper cervical spine with likely prior ACD F. IMPRESSION: 1. No MRI evidence of acute intracranial abnormality. Specifically, no evidence of acute or subacute infarct, acute intracranial hemorrhage, mass, midline shift, or hydrocephalus. 2. The pituitary gland appears enlarged, measuring approximately 11 x 8 x 10 mm (AP by transverse by craniocaudal). The evaluation on this noncontrast, nondedicated study is limited. Possibility of pitu itary lesion such as pituitary adenoma is not excluded. As clinically indicated, this may be further evaluated with a dedicated contrast enhanced pituitary protocol MRI, which may be performed non-emerg ently. 3. Few scattered subcortical white matter T2/FLAIR hyperintensities, nonspecific, and can be seen wit h the entire gamut of white matter conditions, including migraine headaches and as sequela of chronic microangiopathy. [facility] Referring Provider Line: [phone] SITE ID: [id number]
[2017-08-24] MEDS ORDERED: KETOROLAC 60 MG/2 ML VIAL IVP STA (16:34)
[2017-08-24] MEDS ORDERED: ACYCLOVIR 200 MG CAPSULE PO STA (16:35)
[2017-08-24] MEDS ORDERED: DEXAMETHASONE 10 MG/ML VIAL IVP STA (16:35)
[2017-08-24 17:13] VITALS: BP 154/92
== END 2017-08-24 17:16 | disposition home or self-care (01) ==
LOC: ED 13:03
DX: G51.0 Bell's palsy (principal); I10 Essential (primary) hypertension; E11.42 Type 2 diabetes mellitus with diabetic polyneuropathy; E03.9 Hypothyroidism, unspecified; F17.200 Nicotine dependence, unspecified, uncomplicated; Z79.4 Long term (current) use of insulin
CPT/HCPCS: 36415; 70551; 80053; 83690; 83735; 85025; 85651; 96374; 96375; 96376; 99283; 99284; A9270; J1170

== ENCOUNTER 2017-10-09 09:45 | Emergency (ER) | payer MEDICARE, MEDICAID ==
--- NOTE | 2017-10-09 09:56 | ED Physician Documentation ---
PD HPI ABD PAIN - Stated complaint Stated Complaint: ABD PX/VOMITING - Chief complaint Chief Complaint: Abd Pain - History obtained from History obtained from: Patient - History of Present Illness Timing - onset: How many days ago (3-4 days of nausea with some vomiting, mid abd cramping pain. No diarrhea. Symptoms worse today, so vomiting her usual medications, including pain meds.) Timing - duration: Days (some cramping for days with nausea; pain worse today and also out of her usual pain meds as took extra doses after vomiting up the past few days.) Timing - details: Gradual onset, Waxing and waning Quality: Cramping, Aching, Pain Location: Periumbilical, Suprapubic Radiation: Lower back Worsened by: Eating Associated symptoms: Nausea, Vomiting, Loss of appetite. No: Fever, Hematemesis , Diarrhea, Melena, Hematochezia, Dysuria, Near syncope / syncope Similar symptoms before: Diagnosis (has had similar without particular dx a couple of times. Has had this with Dx SBO and hospitalized for several days last years. Nonsurgical improvement.) Review of Systems Constitutional: reports: Myalgias (chronic due to FM). denies: Fever, Chills Nose: denies: Rhinorrhea / runny nose, Congestion Throat: denies: Sore throat Respiratory: denies: Cough GI: reports: Abdominal Pain, Nausea, Vomiting, Constipation. denies: Abdominal Swelling, Diarrhea, Hematemesis, Bloody / black stool : denies: Dysuria, Frequency Neurologic: reports: Generalized weakness. 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, Tubal ligation HEENT: Other - Present Medications Home Medications: Ambulatory Orders Medication Instructions Recorded Confirmed DULoxetine [Cymbalta] 60 mg PO DAILY 06/16/13 05/29/17 Levothyroxine Sodium [Levoxyl] 250 mcg PO DAILY 06/16/13 05/29/17 QUEtiapine [SEROquel] 600 mg PO DAILY 06/16/13 05/29/17 oxyCODONE/ACET 5/325 [Percocet 5 5 mg PO DAILY 06/16/13 05/29/17 mg/325 mg] Syring-Needl,Disp,Insul,0.3 ml 1 each MC DAILY #30 disp.syrin 09/05/14 05/29/17 [Insulin Syringe] Albuterol Sulfate [Proair Hfa 8.5 gm IH QID #1 hfa.aer.ad 07/25/15 05/29/17 Inhaler] Alprazolam [Xanax] 1 mg PO QPM PRN #5 tablet 09/26/16 05/29/17 Insulin Glargine [Lantus] 50 unit SUBQ QPM 09/26/16 05/29/17 Ipratropium/Albuterol [Combivent 1 puffs IH Q6H PRN #1 aer.w.adap 09/26/1605/29 Respimat] Hydrocodone/Acetaminophen 1 - 2 each PO Q6H PRN #14 tablet 05/27/17 05/29/17 [Hydrocodon-Acetaminophen 5-325] Insulin Lispro [HumaLOG] 20 unit SUBQ BID 05/27/17 05/29/17 Ondansetron Odt [Zofran] 4 mg TL Q6H PRN #10 tablet 05/27/17 05/29/17 Acyclovir 800 mg PO 5XD #30 tablet 08/24/17 Dexamethasone [Decadron] 4 mg PO DAILY #5 tablet 08/24/17 Oxycodone HCl/Acetaminophen 1 each PO Q6H PRN #15 tablet 08/24/17 [Percocet 5-325 mg Tablet] Fluconazole [Diflucan] 150 mg PO ONCE #1 tablet 10/09/17 Metronidazole [Flagyl] 500 mg PO BID #14 tablet 10/09/17 Ondansetron Odt [Zofran] 4 mg TL Q6H PRN #20 tablet 10/09/17 Oxycodone HCl/Acetaminophen 1 each PO Q6H PRN #25 tablet 10/09/17 [Percocet 5-325 mg Tablet] - Allergies Allergies/Adverse Reactions: Allergies Allergy/AdvReac Type Severity Reaction Status Date / Time No Known Drug Allergies Allergy Verified 05/29/17 07:40 - Social History Does the pt smoke?: Yes Smoking Status: Current every day smoker Does the pt drink ETOH?: No Does the pt have substance abuse?: No - Immunizations Immunizations are current?: Yes - POLST Patient has POLST: No PD ED PE NORMAL - Vitals Vital signs reviewed: Yes - General General: Alert and oriented X 3, Well developed/nourished - HEENT HEENT: Moist mucous membranes, Pharynx benign - Neck Neck: Supple, no meningeal sign, No adenopathy - Cardiac Cardiac: RRR, No murmur - Respiratory Respiratory: Clear bilaterally - Abdomen Abdomen: Normal bowel sounds, Soft, Non distended, No organomegaly, Other ( tender mid abd with lessened bowel sounds. Not distended. ) - Female Female : Deferred - Rectal Rectal: Deferred - Back Back: No CVA TTP - Derm Derm: Normal color, Warm and dry - Extremities Extremities: No tenderness to palpate, Normal ROM s pain, No edema, No calf tenderness / cord - Neuro Neuro: Alert and oriented X 3, No motor deficit, Normal speech Results - Vitals Vitals: Vital Signs - 24 hr 10/09/17 10/09/17 10/09/17 09:49 12:36 13:00 Temperature 35.4 C L Heart Rate 98 90 88 Respiratory 22 16 15 Rate Blood Pressure 192/100 H 159/96 H 147/90 H O2 Saturation 98 97 98 Oxygen O2 Source Room air - Labs Labs: Laboratory Tests 10/09/17 10/09/17 10/09/17 10:18 10:18 10:53 WBC 11.8 H RBC 4.91 Hgb 15.8 Hct 46.1 MCV 93.9 MCH 32.1 H MCHC 34.2 RDW 13.8 Plt Count 347 MPV 7.6 L Neut # Not Reportable Lymph # Not Reportable [place] # Not Reportable Eos # Not Reportable Baso # Not Reportable Absolute Nucleated RBC Not Reportable Total Counted 100 Band Neuts % (Manual) 1 Reactive Lymphs % (Man) 3 Abnorm Lymph % (Manual) 0 Nucleated RBC % Not Reportable Neutrophils # (Manual) 9.7 H Lymphocytes # (Manual) 1.2 L Monocytes # (Manual) 0.8 Eosinophils # (Manual) 0.0 Basophils # (Manual) 0.1 Differential Comment MANUAL DIFFERENTIAL Manual Slide Review Indicated Platelet Estimate NORMAL (130-450,000) Platelet Morphology 1+ GIANT PLATELETS RBC Morph Micro Appear 1+ ANISOCYTOSIS Sodium 132 L Potassium 4.0 Chloride 93 L Carbon Dioxide 27 Anion Gap 12.0 BUN 17 Creatinine 0.8 Estimated GFR (MDRD) 75 L Glucose 335 H Lactic Acid Calcium 10.5 H Magnesium Total Bilirubin 0.4 AST 19 ALT 23 Alkaline Phosphatase 120 Total Protein 8.3 H Albumin 4.9 Globulin 3.4 Albumin/Globulin Ratio 1.4 Lipase 27 Urine Color YELLOW Urine Clarity CLEAR Urine pH 7.0 Ur Specific [place] 1.020 Urine Protein NEGATIVE Urine Glucose (UA) >=1000 H Urine Ketones NEGATIVE Urine Occult Blood NEGATIVE Urine Nitrite NEGATIVE Urine Bilirubin NEGATIVE Urine Urobilinogen 0.2 (NORMAL) Ur Leukocyte Esterase NEGATIVE Ur Microscopic Review NOT INDICATED Urine Culture Comments NOT INDICATED Urine HCG, Qual NEGATIVE 10/09/17 10/09/17 11:05 11:05 WBC RBC Hgb Hct MCV MCH MCHC RDW Plt Count MPV Neut # Lymph # [place] # Eos # Baso # Absolute Nucleated RBC Total Counted Band Neuts % (Manual) Reactive Lymphs % (Man) Abnorm Lymph % (Manual) Nucleated RBC % Neutrophils # (Manual) Lymphocytes # (Manual) Monocytes # (Manual) Eosinophils # (Manual) Basophils # (Manual) Differential Comment Manual Slide Review Platelet Estimate Platelet Morphology RBC Morph Micro Appear Sodium Potassium Chloride Carbon Dioxide Anion Gap BUN Creatinine Estimated GFR (MDRD) Glucose Lactic Acid 1.6 Calcium Magnesium 1.8 Total Bilirubin AST ALT Alkaline Phosphatase Total Protein Albumin Globulin Albumin/Globulin Ratio Lipase Urine Color Urine Clarity Urine pH Ur Specific [place] Urine Protein Urine Glucose (UA) Urine Ketones Urine Occult Blood Urine Nitrite Urine Bilirubin Urine Urobilinogen Ur Leukocyte Esterase Ur Microscopic Review Urine Culture Comments Urine HCG, Qual - Rads (name of study) abd/pelvic CT Radiology: Prelim report reviewed (no obstruction. Small segment of bowel inflammation suggestive colitis. ), EMP read contemporaneously PD MEDICAL DECISION MAKING - ED course Complexity details: re-evaluated patient (pain and nausea improved with IV meds and fluids. ), considered differential, d/w patient Departure - Departure Disposition: 01 Home, Self Care Clinical Impression: Abdominal pain, Colitis, acute Condition: Stable Record reviewed to determine appropriate education?: Yes Instructions: Abdominal Pain Follow-Up: Dmitriy,Lily K, PA-C [Primary Care Provider] - Prescriptions: Fluconazole [Diflucan] 150 mg PO ONCE #1 tablet Metronidazole [Flagyl] 500 mg PO BID #14 tablet Ondansetron Odt [Zofran] 4 mg TL Q6H PRN #20 tablet PRN Reason: Nausea / Vomiting Oxycodone HCl/Acetaminophen [Percocet 5-325 mg Tablet] 1 each PO Q6H PRN #25 tablet PRN Reason: Pain Comments: The CT scan did show a small area of thickened colon consistent with colitis. This can be infectious and so we will treated with Flagyl twice daily for a week. About 5 days into that, take an oral Diflucan to reduce development of thrush. Continue usual medications including Percocet 4 times a day. Follow- up with your primary care this coming week, call for an appointment. Use ondansetron if needed for nausea. Return if worsening symptoms.
[2017-10-09 10:26] LABS: BASOPHILS % (AUTO) 0.7 %; EOSINOPHILS % (AUTO) 0.7 %; HGB - HEMOGLOBIN 15.8 g/dL (12.0-16.0); LYMPHOCYTES % (AUTO) 16.8 %; MEAN CORPUSCULAR HEMOGLOBIN 32.1 pg (27.0-31.0); MEAN CORPUSCULAR HGB CONC 34.2 g/dL (32.0-36.0); MEAN CORPUSCULAR VOLUME 93.9 fL (81.0-99.0); MEAN PLATELET VOLUME 7.6 fL (7.9-10.8); NEUTROPHILS % (AUTO) 75.8 %; PLT - PLATELET COUNT 347 10^3/uL (130-450); RED BLOOD COUNT 4.91 10^6/uL (4.20-5.40); RED CELL DISTRIBUTION WIDTH 13.8 % (12.0-15.0); WHITE BLOOD COUNT 11.8 x10^3/uL (4.8-10.8)
[2017-10-09 10:28] LABS: ABNORMAL LYMPHS % (MANUAL) 0 %
[2017-10-09 10:38] LABS: ALBUMIN 4.9 g/dL (3.2-5.5); ALBUMIN/GLOBULIN RATIO 1.4 (1.0-2.2); BILIRUBIN,TOTAL 0.4 mg/dL (0.2-1.0); CALCIUM 10.5 mg/dL (8.5-10.3); CREATININE 0.8 mg/dL (0.4-1.0); TOTAL PROTEIN 8.3 g/dL (6.7-8.2)
[2017-10-09] MEDS ORDERED: MORPHINE 10 MG/ML VIAL IVP STA (10:48)
[2017-10-09] MEDS ORDERED: FAMOTIDINE 20 MG/2 ML VIAL IVP STA (10:48)
[2017-10-09] MEDS ORDERED: ONDANSETRON 4 MG/2 ML VIAL IVP STA (10:48)
[2017-10-09] MEDS ORDERED: SODIUM CHLORIDE 0.9% 1,000 ML IV ONE ×2 (10:48→11:20)
[2017-10-09] MEDS ORDERED: KETOROLAC 60 MG/2 ML VIAL IVP STA (10:49)
[2017-10-09 10:53] LABS: BAND NEUTROPHILS % (MANUAL) 1 %; BASOPHILS # (MANUAL) 0.1 10^3/uL (0-0.1); BASOPHILS % (MANUAL) 1 %; LYMPHOCYTES # (MANUAL) 1.2 10^3/uL (1.5-3.5); LYMPHOCYTES % (MANUAL) 7 %; MONOCYTES # (MANUAL) 0.8 10^3/uL (0.0-1.0); NEUTROPHILS # (MANUAL) 9.7 10^3/uL (1.5-6.6); NEUTROPHILS % (MANUAL) 81 %
[2017-10-09 10:57] LABS: PLATELET MORPHOLOGY 1+ GIANT PLATELETS (NORMAL); RBC MORPHOLOGY (MULTIPLE) 1+ ANISOCYTOSIS (NORMAL)
[2017-10-09 10:58] LABS: DIFFERENTIAL COMMENT MANUAL DIFFERENTIAL; PLATELET ESTIMATE, MANUAL NORMAL (130-450,000) (NORMAL)
[2017-10-09 11:07] LABS: BILIRUBIN,URINE NEGATIVE (NEGATIVE); GLUCOSE, URINE (UA) >=1000 mg/dL (NEGATIVE); KETONES,URINE (UA) NEGATIVE (NEGATIVE); LEUKOCYTE ESTERASE, URINE NEGATIVE (NEGATIVE); NITRITE,URINE NEGATIVE (NEGATIVE); OCCULT BLOOD,URINE NEGATIVE (NEGATIVE); PROTEIN,URINE NEGATIVE (NEGATIVE); UROBILINOGEN,URINE 0.2 (NORMAL) E.U./dL (NORMAL)
[2017-10-09 11:13] LABS: CLARITY,URINE CLEAR (CLEAR); HCG UR QUAL NEGATIVE
[2017-10-09] MEDS ORDERED: IOPAMIDOL-300 100 ML VIAL ONE (11:21)
[2017-10-09] MEDS ORDERED: IOPAMIDOL-300 100 ML VIAL IVP ONE (11:42)
--- NOTE | 2017-10-09 12:50 | CT Preliminary Report ---
Exam: CT ABDOMEN/PELVIS W/ IMPRESSION: 1. Apparent mild descending, sigmoid colonic wall thickening may relate to nondistention versus mild nonspecific colitis. 2. Fatty liver. 3. Cholecystectomy. 4. Other findings as noted above. [facility] SITE ID: [id number]
--- NOTE | 2017-10-09 12:50 | CT Report ---
EXAM: CT ABDOMEN AND PELVIS EXAM DATE: 10/09/2017 11:44 AM. CLINICAL HISTORY: Mid abd pain and vomiting; h/o prior SBO. COMPARISONS: CT abdomen/pelvis 05/27/2017. TECHNIQUE: Routine helical CT imaging was performed through the abdomen and pelvis. IV contrast: 100 cc Isovue-300. Enteric contrast: No. Reconstructions: Coronal and sagittal. In accordance with CT protocol optimization, one or more of the following dose reduction techniques w ere utilized for this exam: automated exposure control, adjustment of mA and/or KV based on patient s ize, or use of iterative reconstructive technique. FINDINGS: Lung Bases: Unremarkable. Liver: Fatty liver. No masses. Gallbladder/Bile Ducts: Cholecystectomy. No ductal enlargement. Spleen: Normal. Pancreas: Normal. Adrenal Glands: Normal. Kidneys: There appears to be early contrast excretion in the renal collecting systems bilaterally. No hydronephrosis or solid renal mass. Peritoneal Cavity/Bowel: No free air or free fluid. Apparent mild descending and sigmoid colonic wall thickening may relate to nondistention, versus mild nonspecific colitis. There is relatively abrupt caliber transition near the splenic flexure without convincing focal mass. Appendix is not clearly vi sualized; no pericecal inflammatory changes are evident. No evidence of obstruction. Pelvic Organs: Normal. The bladder and visualized pelvic organs are within normal limits. Vasculature: No aneurysms or other significant abnormality. Numerous pelvic phleboliths. Abdominal va sculature appears patent. No portal venous gas. Bones: No significant abnormality. Other: Small fat-containing umbilical hernia. IMPRESSION: 1. Apparent mild descending, sigmoid colonic wall thickening may relate to nondistention versus mild nonspecific colitis. 2. Fatty liver. 3. Cholecystectomy. 4. Other findings as noted above. [facility] Referring Provider Line: [phone] SITE ID: [id number]
[2017-10-09] MEDS ORDERED: metroNIDAZOLE 250 MG TABLET PO STA (13:16)
[2017-10-09] MEDS ORDERED: IOPAMIDOL-300 50 ML VIAL PO ONE (17:32)
[2017-10-09 18:24] VITALS: BP 147/90
== END 2017-10-09 13:51 | disposition home or self-care (01) ==
LOC: ED 09:45
DX: K52.9 Noninfective gastroenteritis and colitis, unspecified (principal); I10 Essential (primary) hypertension; J44.9 Chronic obstructive pulmonary disease, unspecified; E11.42 Type 2 diabetes mellitus with diabetic polyneuropathy; Z79.4 Long term (current) use of insulin; E03.9 Hypothyroidism, unspecified; M79.7 Fibromyalgia; Z87.11 Personal history of peptic ulcer disease; Z87.442 Personal history of urinary calculi; F17.200 Nicotine dependence, unspecified, uncomplicated
CPT/HCPCS: 36415; 74177; 80053; 81003; 81025; 83605; 83690; 83735; 85025; 96361; 96374; 96375; 99283; 99284; A9270; Q9967; 81001; 87086

== ENCOUNTER 2017-10-23 11:33 | Emergency (ER) | payer MEDICARE, MEDICAID ==
[2017-10-23 12:26] LABS: BILIRUBIN,URINE NEGATIVE (NEGATIVE); GLUCOSE, URINE (UA) >=1000 mg/dL (NEGATIVE); KETONES,URINE (UA) NEGATIVE (NEGATIVE); LEUKOCYTE ESTERASE, URINE NEGATIVE (NEGATIVE); NITRITE,URINE NEGATIVE (NEGATIVE); OCCULT BLOOD,URINE NEGATIVE (NEGATIVE); PROTEIN,URINE NEGATIVE (NEGATIVE); UROBILINOGEN,URINE 0.2 (NORMAL) E.U./dL (NORMAL)
[2017-10-23 12:28] LABS: CLARITY,URINE CLEAR (CLEAR)
--- NOTE | 2017-10-23 12:31 | ED Physician Documentation ---
PD HPI ABD PAIN - Stated complaint Stated Complaint: ABD PX - Chief complaint Chief Complaint: Abd Pain - History obtained from History obtained from: Patient - History of Present Illness Timing - onset: Other (She has had ongoing periumbilical pain for months assoc with N/V. Taking percocet for same. She has daily waxing and waning pain that is worse for the last couple of days. She is S/P remote appy/lisa and c- section. Seen here about 2 weeks ago, poss colitis on CT but reading was also poss nondistension of the colon.) - Additional information Additional information: She says she has had this pain on and off for years, it has been worse over the last 6 months. It all started when she had a bowel obstruction in 2014. She has had 2 CT scans over the last 6 months which were basically unremarkable with the exception of fatty liver and potentially colitis 2 weeks ago. She has numerous other comorbidities for her age including clinically diagnosed IBS ( has never had upper and lower endoscopies), fibromyalgia, degenerative disc disease and osteoarthritis. She takes Percocet daily for her other pains, she says she has Percocet at home. Review of Systems Constitutional: denies: Fever, Chills, Weight Loss GI: reports: Abdominal Pain, Nausea, Vomiting. 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, Tubal ligation HEENT: Other - Present Medications Home Medications: Ambulatory Orders Medication Instructions Recorded Confirmed DULoxetine [Cymbalta] 60 mg PO DAILY 06/16/13 05/29/17 Levothyroxine Sodium [Levoxyl] 250 mcg PO DAILY 06/16/13 05/29/17 QUEtiapine [SEROquel] 600 mg PO DAILY 06/16/13 05/29/17 oxyCODONE/ACET 5/325 [Percocet 5 5 mg PO DAILY 06/16/13 05/29/17 mg/325 mg] Syring-Needl,Disp,Insul,0.3 ml 1 each MC DAILY #30 disp.syrin 09/05/14 05/29/17 [Insulin Syringe] Albuterol Sulfate [Proair Hfa 8.5 gm IH QID #1 hfa.aer.ad 07/25/15 05/29/17 Inhaler] Alprazolam [Xanax] 1 mg PO QPM PRN #5 tablet 09/26/16 05/29/17 Insulin Glargine [Lantus] 40 unit SUBQ QPM 09/26/16 05/29/17 Ipratropium/Albuterol [Combivent 1 puffs IH Q6H PRN #1 aer.w.adap 09/26/1605/29 Respimat] Insulin Lispro [HumaLOG] unit SUBQ BID 05/27/17 05/29/17 Ondansetron Odt [Zofran] 4 mg TL Q6H PRN #10 tablet 05/27/17 05/29/17 Dicyclomine HCl 20 mg PO QID PRN #20 tablet 10/23/17 Erythromycin Base [Bossman-Tab] 333 mg PO TID #30 tablet. 10/23/17 Promethazine [Phenergan] 25 - 50 mg PO Q6H PRN #15 tab 10/23/17 - Allergies Allergies/Adverse Reactions: Allergies Allergy/AdvReac Type Severity Reaction Status Date / Time No Known Drug Allergies Allergy Verified 10/23/17 11:37 - Social History Does the pt smoke?: Yes Smoking Status: Current every day smoker Does the pt drink ETOH?: No Does the pt have substance abuse?: No - Immunizations Immunizations are current?: Yes - POLST Patient has POLST: No PD ED PE NORMAL - Vitals Vital signs reviewed: Yes - General General: Alert and oriented X 3, No acute distress - Abdomen Abdomen: Normal bowel sounds, Soft, Other (Mild diffuse tenderness from which she is distractible.) - Neuro Neuro: Alert and oriented X 3, Normal speech Results - Vitals Vitals: Vital Signs - 24 hr 10/23/17 10/23/17 11:36 13:29 Temperature 36.3 C L Heart Rate 98 94 Respiratory 18 18 Rate Blood Pressure 134/77 H 141/99 H O2 Saturation 98 96 Oxygen O2 Source Room air - Labs Labs: Laboratory Tests 10/23/17 10/23/17 10/23/17 12:08 12:35 12:35 WBC 13.2 H RBC 4.52 Hgb 14.6 Hct 42.6 MCV 94.3 MCH 32.4 H MCHC 34.4 RDW 13.9 Plt Count 276 MPV 7.0 L Neut # 11.0 H Lymph # 1.4 L [place] # 0.6 Eos # 0.1 Baso # 0.1 Absolute Nucleated RBC 0.01 Nucleated RBC % 0.0 Manual Slide Review Indicated Platelet Estimate NORMAL (130-450,000) Platelet Morphology NORMAL APPEARANCE RBC Morph Micro Appear 1+ STOMATOCYTES Sodium 129 L Potassium 4.3 Chloride 92 L Carbon Dioxide 27 Anion Gap 10.0 BUN 14 Creatinine 0.9 Estimated GFR (MDRD) 66 L Glucose 398 H Calcium 9.5 Total Bilirubin 0.4 AST 24 ALT 23 Alkaline Phosphatase 104 Total Protein 7.8 Albumin 4.2 Globulin 3.6 Albumin/Globulin Ratio 1.2 Lipase 53 H Urine Color YELLOW Urine Clarity CLEAR Urine pH 6.0 Ur Specific [place] 1.010 Urine Protein NEGATIVE Urine Glucose (UA) >=1000 H Urine Ketones NEGATIVE Urine Occult Blood NEGATIVE Urine Nitrite NEGATIVE Urine Bilirubin NEGATIVE Urine Urobilinogen 0.2 (NORMAL) Ur Leukocyte Esterase NEGATIVE Ur Microscopic Review NOT INDICATED Urine Culture Comments NOT INDICATED PD MEDICAL DECISION MAKING - ED course ED course: 51-year-old woman with now ongoing chronic abdominal pain status post 2 basically normal CAT scans, a trial of antibiotics. She has not seen GI for this and has never had upper and lower endoscopies. I discussed with her that I think further emergency department workup is fairly futile and she should probably go see a carpet sewer for consideration for endoscopies, potentially a gastric emptying study as well. Reglan is contraindicated given her other medications but we will trial erythromycin mostly for gastric motility. Took call from pharmacy after discharge, the dose of erythromycin is not covered by insurance, arthritis changed to 250 mg 3 times daily, same sig otherwise. Departure - Departure Disposition: 01 Home, Self Care Clinical Impression: Abdominal pain Qualifiers: Abdominal location: generalized Qualified Code(s): R10.84 - Generalized abdominal pain Uncontrolled type II diabetes mellitus Qualifiers: Diabetes mellitus intermediate accountant insulin use: with intermediate accountant use Diabetes mellitus complication status: with hyperglycemia Qualified Code(s): E11.65 - Type 2 diabetes mellitus with hyperglycemia Condition: Good Record reviewed to determine appropriate education?: Yes Instructions: Abdominal Pain Prescriptions: Dicyclomine HCl 20 mg PO QID PRN #20 tablet PRN Reason: Abdominal Cramps Erythromycin Base [Bossman-Tab] 333 mg PO TID #30 tablet. Promethazine [Phenergan] 25 - 50 mg PO Q6H PRN #15 tab PRN Reason: Nausea / Vomiting Comments: As discussed, I recommend following up with a specialist, specifically a carpet sewer for further workup and treatment, potentially upper and lower endoscopies and/or gastric emptying study after their consultation. Since you have had specialty care in [place] before, the [facility]'s gastroenterology clinic phone number is [phone]. Call Wednesday for an appointment. Return for new or worsening symptoms. Discharge Date/Time: 10/23/17 13:30
[2017-10-23] MEDS ORDERED: PROMETHAZINE INJ 25 MG in SODIUM CHLORIDE 0.9% 50 ML IV STA (12:41)
[2017-10-23 12:46] LABS: BASOPHILS # (AUTO) 0.1 10^3/uL (0.0-0.1); BASOPHILS % (AUTO) 0.9 %; EOSINOPHILS # (AUTO) 0.1 10^3/uL (0.0-0.7); EOSINOPHILS % (AUTO) 0.7 %; HGB - HEMOGLOBIN 14.6 g/dL (12.0-16.0); LYMPHOCYTES # (AUTO) 1.4 10^3/uL (1.5-3.5); LYMPHOCYTES % (AUTO) 10.6 %; MEAN CORPUSCULAR HEMOGLOBIN 32.4 pg (27.0-31.0); MEAN CORPUSCULAR HGB CONC 34.4 g/dL (32.0-36.0); MEAN CORPUSCULAR VOLUME 94.3 fL (81.0-99.0); MONOCYTES # (AUTO) 0.6 10^3/uL (0.0-1.0); MONOCYTES % (AUTO) 4.4 %; NEUTROPHILS % (AUTO) 83.4 %; PLT - PLATELET COUNT 276 10^3/uL (130-450); RED BLOOD COUNT 4.52 10^6/uL (4.20-5.40); RED CELL DISTRIBUTION WIDTH 13.9 % (12.0-15.0); WHITE BLOOD COUNT 13.2 x10^3/uL (4.8-10.8)
[2017-10-23 12:55] LABS: ALBUMIN 4.2 g/dL (3.2-5.5); ALBUMIN/GLOBULIN RATIO 1.2 (1.0-2.2); BILIRUBIN,TOTAL 0.4 mg/dL (0.2-1.0); CALCIUM 9.5 mg/dL (8.5-10.3); CREATININE 0.9 mg/dL (0.4-1.0); TOTAL PROTEIN 7.8 g/dL (6.7-8.2)
[2017-10-23] MEDS ORDERED: HYDROmorphone 2 MG/ML VIAL IM STA (13:00)
[2017-10-23] MEDS ORDERED: PROMETHAZINE 25 MG/1 ML VIAL IM STA (13:00)
[2017-10-23 13:02] LABS: PLATELET ESTIMATE, MANUAL NORMAL (130-450,000) (NORMAL); PLATELET MORPHOLOGY NORMAL APPEARANCE (NORMAL); RBC MORPHOLOGY (MULTIPLE) 1+ STOMATOCYTES (NORMAL)
[2017-10-23 13:30] VITALS: BP 141/99
== END 2017-10-23 13:30 | disposition home or self-care (01) ==
LOC: ED 11:33
DX: R10.84 Generalized abdominal pain (principal); G89.29 Other chronic pain; E11.65 Type 2 diabetes mellitus with hyperglycemia; Z79.4 Long term (current) use of insulin; I10 Essential (primary) hypertension; F17.200 Nicotine dependence, unspecified, uncomplicated; K58.9 Irritable bowel syndrome, unspecified; M79.7 Fibromyalgia; M19.90 Unspecified osteoarthritis, unspecified site; Z90.49 Acquired absence of other specified parts of digestive tract
CPT/HCPCS: 80053; 81003; 83690; 85025; 96372; 99283; J1170; 36415; 81001; 87086

== ENCOUNTER 2018-02-08 18:08 | Emergency (ER) | payer MEDICARE, MEDICAID ==
[2018-02-08] MEDS ORDERED: KETOROLAC 60 MG/2 ML VIAL IM STA (19:31)
[2018-02-08] MEDS ORDERED: diazePAM 5 MG TABLET PO STA (19:31)
--- NOTE | 2018-02-08 20:42 | ED Physician Documentation ---
PD HPI NECK PAIN - Stated complaint Stated Complaint: NECK PX/STIFFNESS - Chief complaint Chief Complaint: Back Pain - History obtained from History obtained from: Patient, Family - History of Present Illness Timing - onset: How many days ago (3) Timing - duration: Days (3) Timing - details: Gradual onset Pain level max: 10 Pain level now: 10 Location: Mid, Lower, Right, Left Quality: Pain, Spasm, Similar to prior episodes Associated symptoms: No: Fever, Weakness, Numbness, Incontinent of urine, Unable to urinate, Hematuria, Incontinent of stool Improves with: Rest - Additional information Additional information: Patient is a 52-year-old female with long-standing history of chronic neck pain. Has had multiple neck surgeries in the past. She states that her neck is started to stiffen over the past few days. States that it is now painful to move. No fevers. No trauma. States that it was worse after waking up in the morning. She is on morphine at home for pain Review of Systems Constitutional: denies: Fever, Chills Ears: denies: Ear pain Nose: denies: Rhinorrhea / runny nose, Congestion Throat: denies: Sore throat GI: denies: Vomiting Skin: denies: Rash Neurologic: denies: Focal weakness, Numbness, Headache PD PAST MEDICAL HISTORY - Past Medical History Cardiovascular: Hypertension Respiratory: COPD, Pneumonia Endocrine/Autoimmune: Type 2 diabetes, HyPOthyroidism GI: Ulcers : Kidney stones Psych: Depression, Anxiety, Bipolar disorder Musculoskeletal: Fibromyalgia, Chronic back pain - Past Surgical History Past Surgical History: Yes General: Cholecystectomy, Appendectomy 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, Tubal 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 HEENT: Other - Present Medications Home Medications: Ambulatory Orders Medication Instructions Recorded Confirmed DULoxetine [Cymbalta] 60 mg PO DAILY 06/16/13 05/29/17 Levothyroxine Sodium [Levoxyl] 250 mcg PO DAILY 06/16/13 05/29/17 QUEtiapine [SEROquel] 600 mg PO DAILY 06/16/13 05/29/17 Syring-Needl,Disp,Insul,0.3 ml 1 each MC DAILY #30 disp.syrin 09/05/14 05/29/17 [Insulin Syringe] Insulin Glargine [Lantus] 40 unit SUBQ QPM 04/15/17 12/16/17 Ipratropium/Albuterol [Combivent 1 puffs IH Q6H PRN #1 aer.w.adap 09/26/1605/29 Respimat] Insulin Lispro [HumaLOG] unit SUBQ BID 05/27/17 05/29/17 Alprazolam [Xanax] 3 mg PO TID 02/08/18 02/08/18 Meloxicam [Mobic] 7.5 mg PO BID PRN #20 tablet 02/08/18 Morphine ER 15 mg PO BID 02/08/18 02/08/18 Morphine ER 30 mg PO DAILY 02/08/18 02/08/18 diazePAM [Valium] 5 - 10 mg PO TID PRN #15 tablet 02/08/18 - Allergies Allergies/Adverse Reactions: Allergies Allergy/AdvReac Type Severity Reaction Status Date / Time No Known Drug Allergies Allergy Verified 02/08/18 18:14 - Social History Does the pt smoke?: Yes Smoking Status: Current every day smoker Does the pt drink ETOH?: No Does the pt have substance abuse?: No - Immunizations Immunizations are current?: Yes - POLST Patient has POLST: No PD ED PE NORMAL - Vitals Vital signs reviewed: Yes - General General: Alert and oriented X 3, No acute distress - HEENT HEENT: PERRL, Ears normal, Moist mucous membranes, Pharynx benign - Neck Neck: No bony TTP (No step-off or deformity), No JVD, No bruit, Other (Cervical spine muscle spasm posterior paracervical musculature) - Cardiac Cardiac: RRR, Strong equal pulses - Respiratory Respiratory: No respiratory distress - Abdomen Abdomen: Soft, Non tender, Non distended - Back Back: No spinal TTP - Derm Derm: Warm and dry - Neuro Neuro: Alert and oriented X 3, frame changer 2-12 intact, No motor deficit, No sensory deficit Eye Opening: Spontaneous Motor: Obeys Commands Verbal: Oriented GCS Score: 15 Results - Vitals Vitals: Vital Signs - 24 hr 02/08/18 20:48 Heart Rate 89 Respiratory 16 Rate Blood Pressure 116/72 O2 Saturation 99 Oxygen O2 Source Room air PD MEDICAL DECISION MAKING - ED course Complexity details: re-evaluated patient, considered differential, d/w patient ED course: Patient is a 52-year-old female with neck spasm. She was given Toradol and Valium. Feels much improved. Mobility is improved. We will continue muscle relaxants at home and continue her on her current medications. No evidence of meningitis, new fracture or hardware failure. No neurological deficits. Patient counseled regarding signs and symptoms for which I believe and urgent re -evaluation would be necessary. Patient with good understanding of and agreement to plan and is comfortable going home at this time This document was made in part using voice recognition software. While efforts are made to proofread this document, sound alike and grammatical errors may occur. - Sepsis Event Vital Signs: Vital Signs - 24 hr 02/08/18 20:48 Heart Rate 89 Respiratory 16 Rate Blood Pressure 116/72 O2 Saturation 99 Oxygen O2 Source Room air Departure - Departure Disposition: Home, Self Care Clinical Impression: Neck muscle spasm Condition: Good Instructions: ED Spasm Neck No Injury Follow-Up: James Hager DO [Primary Care Provider] - Within 1 week Prescriptions: diazePAM [Valium] 5 - 10 mg PO TID PRN #15 tablet PRN Reason: Spasms Meloxicam [Mobic] 7.5 mg PO BID PRN #20 tablet PRN Reason: Pain Comments: Return if you worsen. Keep gently stretching your neck at home. Do not drive or operate heavy machinery while taking the valium. Discharge Date/Time: 02/08/18 20:48
[2018-02-08 20:49] VITALS: BP 116/72
== END 2018-02-08 20:48 | disposition home or self-care (01) ==
LOC: ED 18:08
DX: M62.838 Other muscle spasm (principal); I10 Essential (primary) hypertension; J44.9 Chronic obstructive pulmonary disease, unspecified; E11.9 Type 2 diabetes mellitus without complications; Z79.4 Long term (current) use of insulin; F17.200 Nicotine dependence, unspecified, uncomplicated
CPT/HCPCS: 96372; 99283; A9270

== ENCOUNTER 2018-02-22 18:01 | Emergency (ER) | payer MEDICARE, MEDICAID ==
[2018-02-22 18:21] VITALS: BP 143/94
== END 2018-02-22 19:58 | disposition left against medical advice (07) ==
LOC: ED 18:01
DX: Z53.21 Procedure and treatment not carried out due to patient leaving prior to being seen by health care provider (principal)

== ENCOUNTER 2018-02-24 12:17 | Outpatient (CLI) | payer MEDICARE, MEDICAID ==
[2018-02-24 12:47] LABS: CALCIUM 9.6 mg/dL (8.5-10.3); CREATININE 0.9 mg/dL (0.4-1.0)
[2018-02-24] MEDS ORDERED: IOPAMIDOL-300 100 ML VIAL ONE (14:59)
[2018-02-24] MEDS ORDERED: IOPAMIDOL-300 50 ML VIAL ONE (14:59)
[2018-02-24] MEDS ORDERED: IOPAMIDOL-300 50 ML VIAL PO ONE (16:32)
[2018-02-24] MEDS ORDERED: IOPAMIDOL-300 100 ML VIAL IVP ONE (16:34)
--- NOTE | 2018-02-24 17:49 | CT Report ---
Reason: K5900/OBSTIPATION Procedure Date: 02/24/2018 Accession Number: [id number] / [id number] Procedure: CT - Abdomen/Pelvis W/ CPT Code: FULL RESULT: EXAM: CT ABDOMEN AND PELVIS EXAM DATE: 02/24/2018 04:34 PM. CLINICAL HISTORY: K5900/OBSTIPATION. COMPARISONS: 10/09/2017. TECHNIQUE: Routine helical CT imaging was performed through the abdomen and pelvis. IV contrast: 50 ML ISOVUE 300. Enteric contrast: Yes. Reconstructions: Coronal and sagittal. In accordance with CT protocol optimization, one or more of the following dose reduction techniques were utilized for this exam: automated exposure control, adjustment of mA and/or KV based on patient size, or use of iterative reconstructive technique. FINDINGS: Lung Bases: Unremarkable. Liver: Normal. No masses. Gallbladder/Bile Ducts: Surgically absent. No ductal dilation. Spleen: Normal. Pancreas: Normal. Adrenal Glands: Normal. Kidneys: Normal. No masses or hydronephrosis. Peritoneal Cavity/Bowel: Mild colonic diverticulosis. Small to moderate amount of stool, predominantly on the right. No free fluid, free air or adenopathy. No masses or acute inflammatory process. Unremarkable region of appendix. Pelvic Organs: Unremarkable decompressed urinary bladder. Atrophic uterus. Vasculature: No aneurysms or other significant abnormality. Bones: No significant abnormality. Other: None. IMPRESSION: Mild diverticulosis and other chronic or incidental findings. No bowel dilation or unusual amount of stool. [facility] The call report notification system was initiated by Dr. Darin Rodriguez at 17:24 hrs on 02/24/18. The above findings were discussed with Lily Moore by Dr. Darin Rodriguez at 17:48 hrs on 02/24/18.
== END 2018-02-24 12:18 | disposition home or self-care (01) ==
LOC: LAB 12:17 → DI 12:18
PROVIDERS: ATTEND Family Medicine
DX: K57.30 Diverticulosis of large intestine without perforation or abscess without bleeding (principal); K59.00 Constipation, unspecified
CPT/HCPCS: 36415; 74177; 80048; Q9967

== ENCOUNTER 2018-07-10 23:43 | Emergency (ER) | payer MEDICARE, MEDICAID ==
[2018-07-11] MEDS ORDERED: BUPIVACAINE 0.5% PF 10 ML VIAL SUBQ STA (00:57)
[2018-07-11] MEDS ORDERED: LORazepam 0.5 MG TABLET PO STA (00:57)
--- NOTE | 2018-07-11 01:37 | Ultrasound Report ---
Reason: Right toe redness Procedure Date: 07/11/2018 Accession Number: [id number] / [id number] Procedure: US - Ankle Brachial Index CPT Code: FULL RESULT: EXAM: BILATERAL ANKLE/BRACHIAL INDEX EXAM DATE: 07/11/2018 01:22 AM. CLINICAL HISTORY: Right toe redness. COMPARISON: None. TECHNIQUE: A blood pressure cuff and pulse volume recording Doppler ultrasound was used to evaluate the arterial pressures in the arms and ankle. FINDINGS: Brachial pressure: Right brachial artery: 123 mmHg Left brachial artery: 137 mmHg Right ankle pressures: Ankle: 120 mmHg, index 0.87 Waveforms are biphasic. Left ankle pressures: Ankle: 113 mmHg, index 0.82 Waveforms are biphasic. IMPRESSION: 1. Right ankle/brachial index: 0.87. 2. Left ankle/brachial index: 0.82. Abnormal ABIs, compatible with bilateral peripheral vascular disease. ANKLE/BRACHIAL INDEX REFERENCE STANDARDS 1.0-1.4: Normal 0.90-0.99: Borderline < 0.9: Abnormal RAD[facility]
--- NOTE | 2018-07-11 02:12 | ED Physician Documentation ---
History of Present Illness - Stated complaint Stated Complaint: ULICES BIG TOE DISCOLORATION - Chief complaint Chief Complaint: Ext Problem - History obtained from History obtained from: Patient - History of Present Illness Timing: How many weeks ago (2) Pain level max: 3 Pain level now: 3 Severity Comments: mild Quality: aching Radiates to: none Improved by: rest Worsened by: Weightbearing Associated symptoms: None Review of Systems Constitutional: reports: Reviewed and negative Eyes: reports: Reviewed and negative Ears: reports: Reviewed and negative Nose: reports: Reviewed and negative Throat: reports: Reviewed and negative Cardiac: reports: Reviewed and negative Respiratory: reports: Reviewed and negative GI: reports: Reviewed and negative : reports: Reviewed and negative Skin: reports: Reviewed and negative Musculoskeletal: reports: Reviewed and negative Neurologic: reports: Reviewed and negative Psychiatric: reports: Reviewed and negative Endocrine: reports: Reviewed and negative Immunocompromised: reports: Reviewed and negative PD PAST MEDICAL HISTORY - Past Medical History Past Medical History: Yes Cardiovascular: Hypertension Respiratory: COPD, Pneumonia Endocrine/Autoimmune: Type 2 diabetes, HyPOthyroidism GI: Ulcers : Kidney stones Psych: Depression, Anxiety, Bipolar disorder Musculoskeletal: Fibromyalgia, Chronic back pain - Past Surgical History Past Surgical History: Yes General: Cholecystectomy, Appendectomy Ortho: 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 surgery /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 INSPECTOR: section, Tubal ligation HEENT: Other - Present Medications Home Medications: Ambulatory Orders Medication Instructions Recorded Confirmed DULoxetine [Cymbalta] 60 mg PO DAILY 06/16/13 05/29/17 Levothyroxine Sodium [Levoxyl] 250 mcg PO DAILY 06/16/13 05/29/17 QUEtiapine [SEROquel] 600 mg PO DAILY 06/16/13 05/29/17 Syring-Needl,Disp,Insul,0.3 ml 1 each MC DAILY #30 disp.syrin 09/05/14 05/29/17 [Insulin Syringe] Insulin Glargine [Lantus] 40 unit SUBQ QPM 09/26/16 05/29/17 Ipratropium/Albuterol [Combivent 1 puffs IH Q6H PRN #1 aer.w.adap 09/26/16 05/29/17 Respimat] Insulin Lispro [HumaLOG] unit SUBQ BID 05/27/17 05/29/17 Alprazolam [Xanax] 3 mg PO TID 02/08/18 02/08/18 Meloxicam [Mobic] 7.5 mg PO BID PRN #20 tablet 02/08/18 Morphine ER 15 mg PO BID 02/08/18 02/08/18 Morphine ER 30 mg PO DAILY 02/08/18 02/08/18 diazePAM [Valium] 5 - 10 mg PO TID PRN #15 tablet 02/08/18 Amox/Clav 875/125 [Augmentin] 1 each PO Q12H #20 tablet 07/11/18 - Allergies Allergies/Adverse Reactions: Allergies Allergy/AdvReac Type Severity Reaction Status Date / Time No Known Drug Allergies Allergy Verified 02/22/18 18:21 - Living Situation Living Situation: reports: With family Living Arrangement: reports: At home - Social History Does the pt smoke?: Yes Smoking Status: Current every day smoker Does the pt drink ETOH?: No Does the pt have substance abuse?: No - Family History Family history: reports: Other (Reviewed and not pertinent) - Immunizations Immunizations are current?: Yes - POLST Patient has POLST: No PD ED PE NORMAL - Vitals Vital signs reviewed: Yes - General General: Alert and oriented X 3, No acute distress - HEENT HEENT: PERRL - Neck Neck: Supple, no meningeal sign - Cardiac Cardiac: RRR, No murmur - Respiratory Respiratory: Clear bilaterally - Abdomen Abdomen: Normal bowel sounds, Soft, Non tender, Non distended - Derm Derm: Warm and dry - Extremities Extremities: No deformity, Other (Good distal pulses.Right great toenail ingrown, fungus, redness surrounding the nail bed.) - Neuro Neuro: Alert and oriented X 3 - Psych Psych: Normal mood, Normal affect Results - Vitals Vitals: Vital Signs - 24 hr 07/10/18 23:49 Temperature 37.1 C Heart Rate 97 Respiratory 16 Rate Blood Pressure 130/85 H O2 Saturation 96 Oxygen O2 Source Room air - Labs Labs: Laboratory Tests 07/10/18 23:51 POC Whole Bld Glucose 87 - Rads (name of study) Ankle brachial index Radiology: Final report received (Right great toenail ingrown, fungus, redness surrounding the nail bed.) Procedures - General procedure General procedure: Great toenail (right) was excised under digital nerve block using gentle traction. - Regional nerve block Nerve block site: Digital - note digit(s) (Right great toe) Right / left: Right Nerve block anesthesia: Marcaine 0.5% Nerve block aftercare: Excellent anesthesia PD MEDICAL DECISION MAKING - ED course Complexity details: reviewed results, re-evaluated patient, considered differential, d/w patient, d/w family ED course: 52-year-old female with right great toe pain. Consistent with ingrown toenail. Ankle brachial index was mildly abnormal but no concern for ischemic toes at this time. Toes are warm. Discoloration and tenderness is only around the great toenail. Toenail removed. Patient discharged on Augmentin.Patient encouraged to follow-up with podiatry as well as PCP regarding peripheral vascular disease.Brief intervention performed regarding tobacco cessation. 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 Follow-up with podiatry within 24 hours for wound debridement. Keep dressing clean and dry and change daily.Return with worsening symptoms.
[2018-07-11 02:26] VITALS: BP 138/65
== END 2018-07-11 02:27 | disposition home or self-care (01) ==
LOC: ED 23:43
DX: L60.0 Ingrowing nail (principal); E11.51 Type 2 diabetes mellitus with diabetic peripheral angiopathy without gangrene; I10 Essential (primary) hypertension; E03.9 Hypothyroidism, unspecified; F17.200 Nicotine dependence, unspecified, uncomplicated
CPT/HCPCS: 11730; 93922; 99283; A9270

== ENCOUNTER 2018-08-28 15:18 | Emergency (ER) | payer MEDICARE, MEDICAID ==
--- NOTE | 2018-08-28 15:20 | ED Physician Documentation ---
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 There is no associated headache, but she does have some periauricular pain that is mild. No sores though. The last episode of Green's palsy was about a year ago. She is never been checked for Lyme disease as far as I know. She has lived in other places including [place] in [place].) Review of Systems Constitutional: denies: Fever, Chills Eyes: denies: Loss of vision, Decreased vision, Photophobia, Discharge, Irritation Ears: denies: Loss of hearing Nose: denies: Rhinorrhea / runny nose, Congestion PD PAST MEDICAL HISTORY - Past Medical History Cardiovascular: Hypertension Respiratory: COPD, Pneumonia Endocrine/Autoimmune: Type 2 diabetes, HyPOthyroidism GI: Ulcers : Kidney stones Psych: Depression, Anxiety, Bipolar disorder Musculoskeletal: Fibromyalgia, Chronic back pain - Past Surgical History Past Surgical History: Yes General: Cholecystectomy, Appendectomy Ortho: Spine surgery /TEACHER OF THE SIGHT IMPAIRED: section, Tubal ligation HEENT: Other - Present Medications Home Medications: Ambulatory Orders Medication Instructions Recorded Confirmed DULoxetine [Cymbalta] 60 mg PO DAILY 06/16/13 05/29/17 Levothyroxine Sodium [Levoxyl] 250 mcg PO DAILY 06/16/13 05/29/17 QUEtiapine [SEROquel] 600 mg PO DAILY 06/16/13 05/29/17 RX: Syring-Needl,Disp,Insul,0.3 ml 1 each MC DAILY #30 disp.syrin 09/05/14 05/29/17 [Insulin Syringe] Insulin Glargine [Lantus] 40 unit SUBQ QPM 09/26/16 05/29/17 Ipratropium/Albuterol [Combivent 1 puffs IH Q6H PRN #1 aer.w.adap 09/26/16 05/29/17 Respimat] Insulin Lispro [HumaLOG] unit SUBQ BID 05/27/17 05/29/17 Alprazolam [Xanax] 3 mg PO TID 02/08/18 02/08/18 Meloxicam [Mobic] 7.5 mg PO BID PRN #20 tablet 02/08/18 RX: Morphine ER 15 mg PO BID 02/08/18 02/08/18 RX: Morphine ER 30 mg PO DAILY 02/08/18 02/08/18 diazePAM [Valium] 5 - 10 mg PO TID PRN #15 tablet 02/08/18 Amox/Clav 875/125 [Augmentin] 1 each PO Q12H #20 tablet 07/11/18 RX: Acyclovir 800 mg PO 5XD #50 tablet 08/28/18 - Allergies Allergies/Adverse Reactions: Allergies Allergy/AdvReac Type Severity Reaction Status Date / Time No Known Drug Allergies Allergy Verified 08/28/18 15:21 - Social History Does the pt smoke?: Yes Smoking Status: Current every day smoker Does the pt drink ETOH?: No Does the pt have substance abuse?: No - Immunizations Immunizations are current?: Yes - POLST Patient has POLST: No PD ED PE NORMAL - Vitals Vital signs reviewed: Yes - General General: Alert and oriented X 3, No acute distress - HEENT HEENT: Other (She has a clear right by sided Green's palsy, it does not spare the forehead. I do not see any herpetic lesions about the face or near the years.) - Neck Neck: Supple, no meningeal sign, No bony TTP - Neuro Neuro: Alert and oriented X 3, fios line installer 2-12 intact, Normal speech - Psych Psych: Normal mood, Normal affect NIHSS - Time Time: 15:20 - Level of Consciousness Level of consciousness: (0) Alert, Keenly responsive LOC Questions: (0) Answers both Q's correct LOC Commands: (0) Performs both correctly - Gaze Best Gaze: (0) Normal - Visual Visual: (0) No loss - Facial Palsy Facial Palsy: (2) Partial paralysis (RIGHT) - Motor Arms (both separate) Motor Arm (right): (0) No drift Motor Arm (left): (0) No drift - Motor Legs (both separate) Motor Leg (right): (0) No drift Motor Leg (left): (0) No drift - Limb Ataxia Limb Ataxia: (0) Absent - Sensory Sensory: (0) Normal - Best Language Best Language: (0) No aphasia - Dysarthria Dysarthria: (0) Normal - Extinction and Inattention (formally neg Extinction and inattention: (0) No abnormality - Total Score/Results Total Score/Result: 2 Results - Vitals Vitals: Vital Signs - 24 hr 08/28/18 15:21 Temperature 36.6 C Heart Rate 96 Respiratory 16 Rate Blood Pressure 135/79 H O2 Saturation 95 Oxygen O2 Source Room air PD MEDICAL DECISION MAKING - ED course ED course: This is a 52-year-old woman with type 2 diabetes presents with a recurrent Green's palsy. There is nothing in the history or exam to suggest a central cause of this. She will be checked for Lyme disease given that this is recurrent, she understands this test will not come back today and she needs to follow-up with her physician for results. Steroids were held given the pretty high number needed to treat and underlying diabetes. Departure - Departure Disposition: 01 Home, Self Care Clinical Impression: Green palsy Condition: Good Record reviewed to determine appropriate education?: Yes Instructions: ED [place] Palsy Prescriptions: RX: Acyclovir 800 mg PO 5XD #50 tablet Comments: Call your doctor to arrange a follow-up appointment, make the next available appointment. In the interim, return anytime if worse or if new symptoms develop. Discharge Date/Time: 08/28/18 15:37
[2018-08-28 15:27] VITALS: BP 135/79
[2018-09-01 16:32] LABS: 18 KD (IGG) BAND NON-REACTIVE; 23 KD (IGG) BAND NON-REACTIVE; 23 KD (IGM) BLOT NON-REACTIVE; 28 KD (IGG) BAND NON-REACTIVE; 30 KD (IGG) BAND NON-REACTIVE; 39 KD (IGG) BAND NON-REACTIVE; 39 KD (IGM) BLOT NON-REACTIVE; 41 KD (IGG) BAND NON-REACTIVE; 41 KD (IGM) BLOT NON-REACTIVE; 45 KD (IGG) BAND NON-REACTIVE; 58 KD (IGG) BAND NON-REACTIVE; 66 KD (IGG) BAND NON-REACTIVE; 93 KD (IGG) BAND NON-REACTIVE
== END 2018-08-28 15:37 | disposition home or self-care (01) ==
LOC: ED 15:18
DX: G51.0 Bell's palsy (principal); E03.9 Hypothyroidism, unspecified; I10 Essential (primary) hypertension; F17.200 Nicotine dependence, unspecified, uncomplicated; E11.9 Type 2 diabetes mellitus without complications; Z79.4 Long term (current) use of insulin
CPT/HCPCS: 86617; 99283

== ENCOUNTER 2018-10-11 20:11 | Outpatient (CLI) | payer MEDICARE, MEDICAID | END 2018-10-11 20:12 | disposition critical access hospital (66) | LOC: EMS 20:11 | PROVIDERS: ATTEND Surgery | DX: R10.31 Right lower quadrant pain (principal); R11.10 Vomiting, unspecified; R73.09 Other abnormal glucose | CPT/HCPCS: A0425; A0427 ==

== ENCOUNTER 2018-10-11 20:24 | Emergency (ER) | payer MEDICARE, MEDICAID ==
--- NOTE | 2018-10-11 21:31 | ED Physician Documentation ---
PD HPI ABD PAIN - Stated complaint Stated Complaint: ABD PAIN - Chief complaint Chief Complaint: Abd Pain - History obtained from History obtained from: Patient - History of Present Illness Timing - onset: Today (about 8 am.) Timing - duration: Days (1) Timing - details: Abrupt onset, Still present (The nausea and vomiting starting this morning means she did miss her usual dose of chronic pain medicine and so is hurting more as well.) Quality: Cramping, Aching, Pain Location: Periumbilical, RLQ Radiation: Lower back. No: Chest Worsened by: Eating (She had the onset of lower abdominal pain and cramping with a feeling of bloating and distention associated with nausea and vomiting this morning. She had repetitive vomiting through the morning and afternoon. She has had similar episodes in the past. At least one time was from a bowel obstruction. Other times were without specific findings and diagnosed vaguely as IBS. She has had previous colonoscopy without acute problems found. She has had a previous gallbladder and appendix surgeries as well as hysterectomy. She states her current symptoms feel similar to obstruction she has had in the past.) Associated symptoms: Nausea, Vomiting, Constipation, Loss of appetite. No: Fever, Diarrhea, Dysuria Similar symptoms before: Diagnosis (Bowel obstruction at least once and irritable bowel or nonspecific diagnoses other episodes) Review of Systems Constitutional: denies: Fever, Chills Nose: denies: Rhinorrhea / runny nose, Congestion Throat: denies: Sore throat Cardiac: denies: Chest pain / pressure, Palpitations Respiratory: denies: Dyspnea, Cough GI: reports: Abdominal Pain, Nausea, Vomiting, Constipation. denies: Abdominal Swelling, Diarrhea Musculoskeletal: reports: Back pain. denies: Neck pain Neurologic: reports: Generalized weakness. 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 : Kidney stones HEENT: None Psych: Depression, Anxiety, Bipolar disorder Musculoskeletal: Fibromyalgia, Chronic back pain Derm: None - Past Surgical History Past Surgical History: Yes General: Cholecystectomy, Appendectomy Ortho: Spine surgery /WARRANT CLERK: section, Tubal ligation HEENT: Other - Present Medications Home Medications: Ambulatory Orders Medication Instructions Recorded Confirmed DULoxetine [Cymbalta] 60 mg PO DAILY 06/16/13 05/29/17 Levothyroxine Sodium [Levoxyl] 250 mcg PO DAILY 06/16/13 05/29/17 QUEtiapine [SEROquel] 600 mg PO DAILY 06/16/13 05/29/17 Syring-Needl,Disp,Insul,0.3 ml 1 each MC DAILY #30 disp.syrin 09/05/14 05/29/17 [Insulin Syringe] Insulin Glargine [Lantus] 40 unit SUBQ QPM 09/26/16 05/29/17 Ipratropium/Albuterol [Combivent 1 puffs IH Q6H PRN #1 aer.w.adap 09/26/16 05/29/17 Respimat] Insulin Lispro [HumaLOG] unit SUBQ BID 05/27/17 05/29/17 Alprazolam [Xanax] 3 mg PO TID 02/08/18 02/08/18 Meloxicam [Mobic] 7.5 mg PO BID PRN #20 tablet 02/08/18 Morphine ER 15 mg PO BID 02/08/18 02/08/18 Morphine ER 30 mg PO DAILY 02/08/18 02/08/18 diazePAM [Valium] 5 - 10 mg PO TID PRN #15 tablet 02/08/18 Amox/Clav 875/125 [Augmentin] 1 each PO Q12H #20 tablet 07/11/18 Acyclovir 800 mg PO 5XD #50 tablet 08/28/18 Docusate Sodium 100 mg PO DAILY #30 capsule 10/11/18 Promethazine Supp [Phenergan Supp] 25 mg MD Q6H PRN #10 supp 10/11/18 - Allergies Allergies/Adverse Reactions: Allergies Allergy/AdvReac Type Severity Reaction Status Date / Time No Known Drug Allergies Allergy Verified 08/28/18 15:21 - Social History Does the pt smoke?: Yes Smoking Status: Current every day smoker Does the pt drink ETOH?: No Does the pt have substance abuse?: No - Immunizations Immunizations are current?: Yes - POLST Patient has POLST: No PD ED PE NORMAL - Vitals Vital signs reviewed: Yes - General General: Alert and oriented X 3, Well developed/nourished - HEENT HEENT: Pharynx benign - Neck Neck: Supple, no meningeal sign, No adenopathy - Cardiac Cardiac: RRR, No murmur - Respiratory Respiratory: Clear bilaterally - Abdomen Abdomen: Soft, Non distended, Other (Some mild tenderness in the diffuse abdomen. However remaining focus of tenderness is periumbilical to right lower quadrant and right midabdomen. There is no obvious distention. Bowel sounds are present and hyperactive. There is no percussion tenderness. There is no CVA tenderness. I do not appreciate any hernias in the umbilical or inguinal areas. I do not feel any hernias in the ventral wall.). No: Normal bowel sounds (diminished) - Back Back: No CVA TTP - Derm Derm: Normal color, Warm and dry - Extremities Extremities: No tenderness to palpate, Normal ROM s pain, No edema - Neuro Neuro: Alert and oriented X 3, No motor deficit, Normal speech Results - Vitals Vitals: Vital Signs - 24 hr 10/11/18 10/11/18 10/11/18 20:30 20:44 22:53 Temperature 36.7 C Heart Rate 82 86 Respiratory 18 17 20 Rate Blood Pressure 148/93 H 139/77 H O2 Saturation 98 94 Oxygen O2 Source Room air - Labs Labs: Laboratory Tests 10/11/18 10/11/18 10/11/18 22:22 22:22 23:20 WBC 10.7 RBC 3.89 L Hgb 12.2 Hct 35.8 L MCV 92.0 MCH 31.4 H MCHC 34.1 RDW 14.4 Plt Count 330 MPV 7.0 L Neut # (Auto) 8.7 H Lymph # (Auto) 1.2 L [place] # (Auto) 0.6 Eos # (Auto) 0.0 Baso # (Auto) 0.1 Absolute Nucleated RBC 0.00 Nucleated RBC % 0.0 Sodium 130 L Potassium 3.7 Chloride 90 L Carbon Dioxide 29 Anion Gap 11.0 BUN 9 Creatinine 0.8 Estimated GFR (MDRD) 75 L Glucose 266 H Calcium 9.0 Total Bilirubin 0.4 AST 17 ALT 18 Alkaline Phosphatase 128 H Total Protein 7.5 Albumin 3.8 Globulin 3.7 Albumin/Globulin Ratio 1.0 Lipase 22 Urine Color YELLOW Urine Clarity CLEAR Urine pH 7.5 Ur Specific [place] 1.015 Urine Protein 30 H Urine Glucose (UA) 500 H Urine Ketones NEGATIVE Urine Occult Blood NEGATIVE Urine Nitrite NEGATIVE Urine Bilirubin NEGATIVE Urine Urobilinogen 0.2 (NORMAL) Ur Leukocyte Esterase NEGATIVE Ur Microscopic Review INDICATED Urine Culture Comments Not Reportable - Rads (name of study) abd/ pelvic CT Radiology: Prelim report reviewed (No bowel obstruction. No free fluid. Above average stool burden suggesting constipation.), See rad report PD MEDICAL DECISION MAKING - ED course Complexity details: re-evaluated patient (She improved quite well with some fluids antiemetics and pain medicine. She feels able to head home given normal lab results and CT results.), considered differential (Consider partial bowel ob struction versus diverticulitis versus colitis versus irritable bowel. This likely compounded with some element of withdrawal due to being unable to take her usual daily pain medicines because of the vomiting.), d/w patient Departure - Departure Disposition: 01 Home, Self Care Clinical Impression: Abdominal pain Qualifiers: Abdominal location: lower abdomen, unspecified Qualified Code(s): R10.30 - Lower abdominal pain, unspecified Intractable vomiting with nausea Qualifiers: Vomiting type: unspecified Qualified Code(s): R11.2 - Nausea with vomiting, unspecified Condition: Stable Record reviewed to determine appropriate education?: Yes Prescriptions: Docusate Sodium 100 mg PO DAILY #30 capsule Promethazine Supp [Phenergan Supp] 25 mg MD Q6H PRN #10 supp PRN Reason: Nausea / Vomiting Comments: Continue usual medications. Use your ondansetron at home if needed for nausea. If that is not working or vomiting despite that, you can use promethazine suppository see if that works better. Return if persistent vomiting and pain despite medications. Your CT scan did not show any acute obstruction or other acute process. There was reported an above average amount of stool burden so there may be some element of constipation and I would suggest docusate once or twice daily for the next several days to week to allow better stool output.
[2018-10-11] MEDS ORDERED: KETOROLAC 15 MG/ML VIAL IVP STA (22:08)
[2018-10-11] MEDS ORDERED: HYDROmorphone 1 MG/ML CARPUJECT IVP STA ×2 (22:08→23:36)
[2018-10-11] MEDS ORDERED: ONDANSETRON 4 MG/2 ML VIAL IVP STA ×2 (22:08→23:36)
[2018-10-11] MEDS ORDERED: SODIUM CHLORIDE 0.9% 1,000 ML IV ONE (22:08)
[2018-10-11 22:28] LABS: BASOPHILS # (AUTO) 0.1 10^3/uL (0.0-0.1); EOSINOPHILS % (AUTO) 0.2 %; HGB - HEMOGLOBIN 12.2 g/dL (12.0-16.0); LYMPHOCYTES # (AUTO) 1.2 10^3/uL (1.5-3.5); LYMPHOCYTES % (AUTO) 11.4 %; MEAN CORPUSCULAR HEMOGLOBIN 31.4 pg (27.0-31.0); MEAN CORPUSCULAR HGB CONC 34.1 g/dL (32.0-36.0); MONOCYTES # (AUTO) 0.6 10^3/uL (0.0-1.0); MONOCYTES % (AUTO) 5.4 %; NEUTROPHILS # (AUTO) 8.7 10^3/uL (1.5-6.6); PLT - PLATELET COUNT 330 10^3/uL (130-450); RED BLOOD COUNT 3.89 10^6/uL (4.20-5.40); RED CELL DISTRIBUTION WIDTH 14.4 % (12.0-15.0); WHITE BLOOD COUNT 10.7 x10^3/uL (4.8-10.8)
[2018-10-11 22:41] LABS: ALBUMIN 3.8 g/dL (3.2-5.5); BILIRUBIN,TOTAL 0.4 mg/dL (0.2-1.0); CREATININE 0.8 mg/dL (0.4-1.0); TOTAL PROTEIN 7.5 g/dL (6.7-8.2)
[2018-10-11 23:30] LABS: BILIRUBIN,URINE NEGATIVE (NEGATIVE); GLUCOSE, URINE (UA) 500 mg/dL (NEGATIVE); KETONES,URINE (UA) NEGATIVE (NEGATIVE); LEUKOCYTE ESTERASE, URINE NEGATIVE (NEGATIVE); NITRITE,URINE NEGATIVE (NEGATIVE); OCCULT BLOOD,URINE NEGATIVE (NEGATIVE); PH,URINE 7.5 PH (5.0-7.5); PROTEIN,URINE 30 mg/dL (NEGATIVE); UROBILINOGEN,URINE 0.2 (NORMAL) E.U./dL (NORMAL)
[2018-10-11 23:32] LABS: CLARITY,URINE CLEAR (CLEAR)
--- NOTE | 2018-10-11 23:33 | CT Report ---
Reason: right mid to lower abd pain and vomiting since AM Procedure Date: 10/11/2018 Accession Number: [id number] / [id number] Procedure: CT - Abdomen/Pelvis WO CPT Code: FULL RESULT: EXAM: CT ABDOMEN AND PELVIS EXAM DATE: 10/11/2018 10:51 PM. CLINICAL HISTORY: Right mid to lower abdominal pain and vomiting since a.m. COMPARISONS: ABDOMEN/PELVIS W/ 02/24/2018 4:15 PM. TECHNIQUE: Routine helical CT imaging was performed through the abdomen and pelvis. IV contrast: No. Enteric contrast: No. Reconstructions: Coronal and sagittal. In accordance with CT protocol optimization, one or more of the following dose reduction techniques were utilized for this exam: automated exposure control, adjustment of mA and/or KV based on patient size, or use of iterative reconstructive technique. FINDINGS: Lung Bases: Unremarkable. Liver: Normal. No masses. Gallbladder/Bile Ducts: The gallbladder has been removed. No bile duct obstruction. Spleen: Normal. Pancreas: Normal. Adrenal Glands: Normal. Kidneys: Normal. No masses or hydronephrosis. Peritoneal Cavity/Bowel: There is a large volume of stool throughout the colon consistent with constipation. No small bowel obstruction. No mesenteric lymphadenopathy, fluid collections or pneumoperitoneum. No evidence of appendicitis. Pelvic Organs: Normal. The bladder and visualized pelvic organs are within normal limits. Vasculature: Atherosclerotic aorta. No aneurysms. Bones: No significant abnormality. Other: None. IMPRESSION: 1. No bowel obstruction, fluid collections or acute inflammatory process. 2. Above average stool burden suggesting constipation. 3. Status post cholecystectomy. [facility]
[2018-10-11] MEDS ORDERED: DOCUSATE SODIUM 100 MG CAPSULE PO STA (23:43)
[2018-10-11 23:49] LABS: BACTERIA,URINE Few /HPF (None Seen); MUCUS,URINE Marked Strands; RBC,URINE 0-5 /HPF (0-5); SQUAMOUS EPITHELIAL CELL,UR MANY Squamous (<= Few)
[2018-10-11 23:54] VITALS: BP 116/94
== END 2018-10-12 00:02 | disposition home or self-care (01) ==
LOC: ED 20:24
DX: R10.31 Right lower quadrant pain (principal); R10.33 Periumbilical pain; G89.29 Other chronic pain; R11.2 Nausea with vomiting, unspecified; E11.9 Type 2 diabetes mellitus without complications; E03.9 Hypothyroidism, unspecified; I10 Essential (primary) hypertension; F17.200 Nicotine dependence, unspecified, uncomplicated; Z79.4 Long term (current) use of insulin
CPT/HCPCS: 36415; 74176; 80053; 81001; 83690; 85025; 96374; 96376; 99283; A9270; J1170; 81003; 87086

== ENCOUNTER 2019-01-26 20:29 | Emergency (ER) | payer MEDICARE, MEDICAID ==
--- NOTE | 2019-01-26 20:46 | ED Physician Documentation ---
History of Present Illness - Stated complaint Stated Complaint: FEMALE - Chief complaint Chief Complaint: Abd Pain - Additonal information Additional information: This is a 53-year-old female with a history of hypertension, hypothyroidism, type 2 diabetes, and fibromyalgia, who presents with left flank pain and dysuria. The symptoms began around 4 days ago, her dysuria has gotten particularly bad over the last 2 days. She has pain which is severe over her left flank, nonradiating, and constant. It does get somewhat worse with certain movements. She is on morphine extended release and immediate release for chronic pain, she has taken these today without relief of her flank pain. She denies hematuria, abnormal vaginal bleeding, or vomiting. She has had nausea and is taken Zofran at home for this Review of Systems Constitutional: denies: Fever Throat: denies: Oral lesions / sores Cardiac: denies: Chest pain / pressure Respiratory: denies: Dyspnea GI: reports: Nausea : reports: Dysuria. denies: Vaginal bleeding Skin: denies: Rash Psychiatric: reports: Anxiety PD PAST MEDICAL HISTORY - Past Medical History Cardiovascular: Hypertension Respiratory: COPD, Pneumonia Neuro: None Endocrine/Autoimmune: Type 2 diabetes, HyPOthyroidism GI: Ulcers TOOL DRESSER: None : Kidney stones HEENT: None Psych: Depression, Anxiety, Bipolar disorder Musculoskeletal: Fibromyalgia, Chronic back pain Derm: None - Past Surgical History Past Surgical History: Yes General: Cholecystectomy, Appendectomy Ortho: Spine surgery /TOOL DRESSER: section, Tubal ligation HEENT: Other - Present Medications Home Medications: Ambulatory Orders Medication Instructions Recorded Confirmed DULoxetine [Cymbalta] 60 mg PO DAILY 06/16/13 05/29/17 Levothyroxine Sodium [Levoxyl] 250 mcg PO DAILY 06/16/13 05/29/17 QUEtiapine [SEROquel] 600 mg PO DAILY 06/16/13 05/29/17 RX: Syring-Needl,Disp,Insul,0.3 ml 1 each MC DAILY #30 disp.syrin 09/05/14 05/29/17 [Insulin Syringe] Insulin Glargine [Lantus] 40 unit SUBQ QPM 09/26/16 05/29/17 Ipratropium/Albuterol [Combivent 1 puffs IH Q6H PRN #1 aer.w.adap 09/26/16 05/29/17 Respimat] Insulin Lispro [HumaLOG] unit SUBQ BID 05/27/17 05/29/17 Alprazolam [Xanax] 3 mg PO TID 02/08/18 02/08/18 Meloxicam [Mobic] 7.5 mg PO BID PRN #20 tablet 02/08/18 RX: Morphine ER 15 mg PO BID 02/08/18 02/08/18 RX: Morphine ER 30 mg PO DAILY 02/08/18 02/08/18 diazePAM [Valium] 5 - 10 mg PO TID PRN #15 tablet 02/08/18 Amox/Clav 875/125 [Augmentin] 1 each PO Q12H #20 tablet 07/11/18 RX: Acyclovir 800 mg PO 5XD #50 tablet 08/28/18 RX: Docusate Sodium 100 mg PO DAILY #30 capsule 10/11/18 RX: Promethazine Supp [Phenergan 25 mg IN Q6H PRN #10 supp 10/11/18 Supp] RX: Cefdinir 300 mg PO BID #14 capsule 01/26/19 - Allergies Allergies/Adverse Reactions: Allergies Allergy/AdvReac Type Severity Reaction Status Date / Time No Known Drug Allergies Allergy Verified 01/26/19 20:41 - Social History Does the pt smoke?: Yes Smoking Status: Current every day smoker Does the pt drink ETOH?: No Does the pt have substance abuse?: No - Immunizations Immunizations are current?: Yes - POLST Patient has POLST: No PD ED PE NORMAL - Vitals Vital signs reviewed: Yes - General General: Alert and oriented X 3 - HEENT HEENT: Atraumatic - Neck Neck: Supple, no meningeal sign - Cardiac Cardiac: RRR - Respiratory Respiratory: No respiratory distress, Clear bilaterally - Abdomen Abdomen: Soft, Other (Obese. No anterior abdominal pain. Patient has tenderness over her left flank with CVA tenderness to percussion. No guarding.) - Derm Derm: Warm and dry - Extremities Extremities: No deformity - Neuro Neuro: Alert and oriented X 3 - Psych Psych: Normal mood, Normal affect Results - Vitals Vitals: Vital Signs - 24 hr 01/26/19 01/26/19 01/26/19 20:39 21:33 22:05 Temperature 36.9 C Heart Rate 89 81 85 Respiratory 20 20 18 Rate Blood Pressure 141/80 H 157/90 H 142/65 H O2 Saturation 98 96 96 01/26/19 01/26/19 22:47 23:15 Temperature 36.5 C Heart Rate 81 80 Respiratory 16 16 Rate Blood Pressure 114/70 116/70 O2 Saturation 96 100 Oxygen O2 Source Room air - Labs Labs: Laboratory Tests 01/26/19 01/26/19 01/26/19 20:55 21:00 21:00 WBC 8.5 RBC 3.97 L Hgb 12.3 Hct 36.5 L MCV 91.9 MCH 31.0 MCHC 33.7 RDW 13.7 Plt Count 330 MPV 8.8 Neut # (Auto) 5.1 Lymph # (Auto) 2.4 [place] # (Auto) 0.6 Eos # (Auto) 0.1 Baso # (Auto) 0.0 Absolute Nucleated RBC 0.00 Nucleated RBC % 0.0 Sodium 134 L Potassium 4.0 Chloride 92 L Carbon Dioxide 29 Anion Gap 13.0 BUN 15 Creatinine 1.1 H Estimated GFR (MDRD) 52 L Glucose 320 H Calcium 9.6 Total Bilirubin 0.5 AST 24 ALT 25 Alkaline Phosphatase 125 H Total Protein 7.9 Albumin 4.2 Globulin 3.7 Albumin/Globulin Ratio 1.1 Lipase 45 Urine Color YELLOW Urine Clarity HAZY Urine pH 6.0 Ur Specific [place] 1.020 Urine Protein 100 H Urine Glucose (UA) >=1000 H Urine Ketones NEGATIVE Urine Occult Blood LARGE H Urine Nitrite NEGATIVE Urine Bilirubin NEGATIVE Urine Urobilinogen 0.2 (NORMAL) Ur Leukocyte Esterase TRACE H Urine RBC 11-25 H Urine WBC >25 H Ur Squamous Epith Cells FEW Squamous Urine Bacteria Few Ur Microscopic Review INDICATED Urine Culture Comments INDICATED PD MEDICAL DECISION MAKING - ED course Complexity details: considered differential (UTI, pyelonephritis, cystitis, nephrolithiasis, muscular skeletal pain, fibromyalgia) ED course: On initial examination patient is mildly uncomfortable appearing, but nontoxic, vital signs are notable only for mild hypertension. Her abdominal exam is benign but she does have some flank pain on percussion. IV was inserted labs are drawn, she has no leukocytosis or anemia, her creatinine is 1.1, she has a very mild hyponatremia of 134. Patient was given a normal saline bolus. Her alk phos is slightly elevated at 125, but she has no right upper quadrant pain, I think this is unrelated to her complaint today. Her glucose is elevated at 320, consistent with her diabetes, she has a normal bicarbonate level and anion gap. Urine is positive for urinary tract infection with greater than 25 white blood cells and bacteria present. On repeat examination after patient has received Zofran morphine and fluids, she is feeling improved. She continues to have unremarkable vital signs. She is given a gram of ceftriaxone for treatment of pyelonephritis. I discussed this diagnosis with her, and recommend that she follow-up closely with her primary care provider. We will treat her with a course of Cefdinir and I discussed return precautions. She will return to the emergency department with worsening or new concerning symptoms. She was discharged home in the care of family. Departure - Departure Disposition: , Self Care Clinical Impression: Pyelonephritis Condition: Stable Instructions: Pyelonephritis Dc Follow-Up: James Hager DO [Primary Care Provider] - Within 1 week Prescriptions: RX: Cefdinir 300 mg PO BID #14 capsule Comments: You were seen today for flank pain and pain when you urinate. You appear to h ave a kidney infection. You were given your first dose of antibiotics here, please start the prescribed antibiotic tomorrow. If you are having worsening of your symptoms, please return to emergency department, otherwise follow-up with Your primary care provider. Discharge Date/Time: 01/26/19 23:17
[2019-01-26] MEDS ORDERED: ONDANSETRON 4 MG/2 ML VIAL IVP STA (21:05)
[2019-01-26] MEDS ORDERED: SODIUM CHLORIDE 0.9% 1,000 ML IV ONE (21:05)
[2019-01-26] MEDS ORDERED: MORPHINE 2 MG/ML CARPUJECT IVP STA ×2 (21:05→21:51)
[2019-01-26 21:07] LABS: BILIRUBIN,URINE NEGATIVE (NEGATIVE); GLUCOSE, URINE (UA) >=1000 mg/dL (NEGATIVE); KETONES,URINE (UA) NEGATIVE (NEGATIVE); LEUKOCYTE ESTERASE, URINE TRACE (NEGATIVE); NITRITE,URINE NEGATIVE (NEGATIVE); OCCULT BLOOD,URINE LARGE (NEGATIVE); PROTEIN,URINE 100 mg/dL (NEGATIVE); UROBILINOGEN,URINE 0.2 (NORMAL) E.U./dL (NORMAL)
[2019-01-26 21:10] LABS: CLARITY,URINE HAZY (CLEAR)
[2019-01-26 21:11] LABS: BASOPHILS % (AUTO) 0.5 %; EOSINOPHILS # (AUTO) 0.1 10^3/uL (0.0-0.7); EOSINOPHILS % (AUTO) 1.4 %; HGB - HEMOGLOBIN 12.3 g/dL (12.0-16.0); LYMPHOCYTES # (AUTO) 2.4 10^3/uL (1.5-3.5); LYMPHOCYTES % (AUTO) 28.6 %; MEAN CORPUSCULAR HGB CONC 33.7 g/dL (32.0-36.0); MEAN CORPUSCULAR VOLUME 91.9 fL (81.0-99.0); MEAN PLATELET VOLUME 8.8 fL (7.9-10.8); MONOCYTES # (AUTO) 0.6 10^3/uL (0.0-1.0); MONOCYTES % (AUTO) 7.2 %; NEUTROPHILS # (AUTO) 5.1 10^3/uL (1.5-6.6); NEUTROPHILS % (AUTO) 60.6 %; PLT - PLATELET COUNT 330 10^3/uL (130-450); RED BLOOD COUNT 3.97 10^6/uL (4.20-5.40); RED CELL DISTRIBUTION WIDTH 13.7 % (12.0-15.0); WHITE BLOOD COUNT 8.5 x10^3/uL (4.8-10.8)
[2019-01-26 21:18] LABS: BACTERIA,URINE Few /HPF (None Seen); SQUAMOUS EPITHELIAL CELL,UR FEW Squamous (<= Few)
[2019-01-26 21:22] LABS: ALBUMIN 4.2 g/dL (3.2-5.5); ALBUMIN/GLOBULIN RATIO 1.1 (1.0-2.2); BILIRUBIN,TOTAL 0.5 mg/dL (0.2-1.0); CALCIUM 9.6 mg/dL (8.5-10.3); CREATININE 1.1 mg/dL (0.4-1.0); TOTAL PROTEIN 7.9 g/dL (6.7-8.2)
[2019-01-26] MEDS ORDERED: cefTRIAXone 1 GM in SODIUM CHLORIDE 0.9% MINIBAG 100 ML IV STA (21:44)
[2019-01-26 23:17] VITALS: BP 116/70
== END 2019-01-26 23:17 | disposition home or self-care (01) ==
LOC: ED 20:29
DX: N12 Tubulo-interstitial nephritis, not specified as acute or chronic (principal); E87.1 Hypo-osmolality and hyponatremia; I10 Essential (primary) hypertension; E11.9 Type 2 diabetes mellitus without complications; F17.200 Nicotine dependence, unspecified, uncomplicated; Z79.4 Long term (current) use of insulin
CPT/HCPCS: 36415; 80053; 81001; 81003; 83690; 85025; 87077; 87086; 87181; 96361; 96365; 96375; 96376; 99284

== ENCOUNTER 2019-02-07 21:29 | Observation (INO) | payer MEDICARE, MEDICAID ==
[2019-02-07 21:56] LABS: BASOPHILS # (AUTO) 0.1 10^3/uL (0.0-0.1); BASOPHILS % (AUTO) 0.6 %; EOSINOPHILS # (AUTO) 0.1 10^3/uL (0.0-0.7); EOSINOPHILS % (AUTO) 1.1 %; HGB - HEMOGLOBIN 12.2 g/dL (12.0-16.0); LYMPHOCYTES # (AUTO) 2.4 10^3/uL (1.5-3.5); LYMPHOCYTES % (AUTO) 27.4 %; MEAN CORPUSCULAR HEMOGLOBIN 30.2 pg (27.0-31.0); MEAN CORPUSCULAR VOLUME 91.6 fL (81.0-99.0); MEAN PLATELET VOLUME 8.8 fL (7.9-10.8); MONOCYTES # (AUTO) 0.5 10^3/uL (0.0-1.0); NEUTROPHILS # (AUTO) 5.4 10^3/uL (1.5-6.6); PLT - PLATELET COUNT 390 10^3/uL (130-450); RED BLOOD COUNT 4.04 10^6/uL (4.20-5.40); RED CELL DISTRIBUTION WIDTH 14.2 % (12.0-15.0); WHITE BLOOD COUNT 8.9 x10^3/uL (4.8-10.8)
--- NOTE | 2019-02-07 22:01 | ED Physician Documentation ---
History of Present Illness - Stated complaint Stated Complaint: UNABLE TO URINATE/BACK PX - Chief complaint Chief Complaint: Abd Pain - History obtained from History obtained from: Patient - History of Present Illness Timing: How many weeks ago (2-3) Pain level now: 8 Radiates to: mid/lower back Improved by: rest Worsened by: movement Associated symptoms: nausea - Additonal information Additional information: T+R from this ED 01/26 for similar c/o (bilateral flank/back pain), was diagnosed with pyelonephritis and rx cefdinir (7 day course; also given IM rocephin in ED prior to d/c). She returns c/o "my kidneys hurt", "I was here on the and it was on the left kidney . Now it's spread to the right." Patient says she has appointment with PMD in 2 days (this coming ). Review of Systems Constitutional: denies: Fever, Chills, Sweats Eyes: reports: Reviewed and negative Ears: reports: Reviewed and negative Nose: reports: Reviewed and negative Throat: reports: Reviewed and negative Cardiac: reports: Reviewed and negative Respiratory: reports: Reviewed and negative GI: reports: Abdominal Pain, Nausea, Diarrhea. denies: Vomiting : reports: Hesitancy ("I feel like I have to force it out, and then it's only a few drops at a time") Skin: reports: Reviewed and negative Musculoskeletal: reports: Back pain Neurologic: reports: Reviewed and negative PD PAST MEDICAL HISTORY - Past Medical History Past Medical History: Yes Cardiovascular: Hypertension Respiratory: COPD, Pneumonia Neuro: None Endocrine/Autoimmune: Type 2 diabetes, HyPOthyroidism GI: Ulcers OPERATIONS OFFICER: None : Kidney stones HEENT: None Psych: Depression, Anxiety, Bipolar disorder Musculoskeletal: Fibromyalgia, Chronic back pain Derm: None - Past Surgical History Past Surgical History: Yes General: Cholecystectomy, Appendectomy Ortho: Spine surgery /OPERATIONS OFFICER: section, Tubal ligation HEENT: Other - Present Medications Home Medications: Ambulatory Orders Medication Instructions Recorded Confirmed DULoxetine [Cymbalta] 60 mg PO DAILY 06/16/13 02/08/19 Levothyroxine Sodium [Levoxyl] 250 mcg PO DAILY 06/16/13 02/08/19 QUEtiapine [SEROquel] 600 mg PO DAILY 01/03/14 08/28/19 Syring-Needl,Disp,Insul,0.3 ml 1 each MC DAILY #30 disp.syrin 09/05/14 05/29/17 [Insulin Syringe] Insulin Glargine [Lantus] 50 unit SUBQ QPM 09/26/16 02/08/19 Ipratropium/Albuterol [Combivent 1 puffs IH Q6H PRN #1 aer.w.adap 09/26/16 02/08/19 Respimat] Insulin Lispro [HumaLOG] 0 unit SUBQ BID 05/27/17 02/08/19 Alprazolam [Xanax] 2 mg PO DAILY PM 02/08/18 02/08/19 Morphine ER 15 mg PO BID 02/08/18 02/08/19 Morphine ER 30 mg PO DAILY 02/08/18 02/08/19 Docusate Sodium 100 mg PO DAILY #30 capsule 10/11/18 02/08/19 Morphine Sulfate 30 mg PO DAILY PM 02/08/19 02/08/19 Tizanidine HCl 3 tab PO DAILY 02/08/19 02/08/19 - Allergies Allergies/Adverse Reactions: Allergies Allergy/AdvReac Type Severity Reaction Status Date / Time No Known Drug Allergies Allergy Verified 02/07/19 21:38 - Social History Does the pt smoke?: No Smoking Status: Current some day smoker Does the pt drink ETOH?: No Does the pt have substance abuse?: No - Immunizations Immunizations are current?: Yes - POLST Patient has POLST: No PD ED PE NORMAL - Vitals Vital signs reviewed: Yes - General General: Alert and oriented X 3, Well developed/nourished, Other (appears uncomfortable but overall appearance is nontoxic) - HEENT HEENT: Moist mucous membranes - Neck Neck: Supple, no meningeal sign - Cardiac Cardiac: RRR, No murmur - Respiratory Respiratory: No respiratory distress, Clear bilaterally - Abdomen Abdomen: Soft, Non distended, Other (mild tenderness across mid abdomen without rebound or guarding) - Derm Derm: Normal color, Warm and dry - Extremities Extremities: No edema PD ED PE EXPANDED - Back Back: CVA TTP right, CVA TTP left Results - Vitals Vitals: Vital Signs - 24 hr 02/07/19 02/07/19 02/07/19 21:35 21:44 23:15 Temperature 36.0 C L Heart Rate 91 80 Respiratory 18 20 14 Rate Blood Pressure 134/91 H 154/78 H O2 Saturation 97 94 02/07/19 02/08/19 23:46 00:40 Temperature Heart Rate 77 76 Respiratory 16 16 Rate Blood Pressure 124/80 128/84 H O2 Saturation 97 96 Oxygen O2 Source Room air - Labs Labs: Laboratory Tests 02/07/19 02/07/19 02/07/19 21:47 21:47 22:04 WBC 8.9 RBC 4.04 L Hgb 12.2 Hct 37.0 MCV 91.6 MCH 30.2 MCHC 33.0 RDW 14.2 Plt Count 390 MPV 8.8 Neut # (Auto) 5.4 Lymph # (Auto) 2.4 [place] # (Auto) 0.5 Eos # (Auto) 0.1 Baso # (Auto) 0.1 Absolute Nucleated RBC 0.00 Nucleated RBC % 0.0 Sodium 134 L Potassium 4.1 Chloride 93 L Carbon Dioxide 30 Anion Gap 11.0 BUN 14 Creatinine 1.2 H Estimated GFR (MDRD) 47 L Glucose 339 H Calcium 9.8 Total Bilirubin 0.3 AST 18 ALT 27 Alkaline Phosphatase 154 H Total Protein 7.8 Albumin 4.0 Globulin 3.8 Albumin/Globulin Ratio 1.1 Lipase 24 Urine Color YELLOW Urine Clarity HAZY Urine pH 6.5 Ur Specific [place] 1.010 Urine Protein NEGATIVE Urine Glucose (UA) >=1000 H Urine Ketones NEGATIVE Urine Occult Blood NEGATIVE Urine Nitrite NEGATIVE Urine Bilirubin NEGATIVE Urine Urobilinogen 0.2 (NORMAL) Ur Leukocyte Esterase TRACE H Urine RBC None Seen Urine WBC 6-10 H Ur Squamous Epith Cells MANY Squamous H Urine Bacteria Few Ur Microscopic Review INDICATED Urine Culture Comments NOT INDICATED - Rads (name of study) CT A/P Radiology: Prelim report reviewed, See rad report PD MEDICAL DECISION MAKING - ED course Complexity details: reviewed old records, reviewed results, re-evaluated patient, considered differential, d/w patient ED course: CT s/o colitis. Patient has ongoing abdominal pain requiring repeat dose of morphine IV. Unable to provide stool sample. Departure - Departure Disposition: ED Place in Observation Clinical Impression: Abdominal pain, Colitis, acute Condition: Good Discharge Date/Time: 02/08/19 02:18
[2019-02-07 22:10] LABS: BILIRUBIN,URINE NEGATIVE (NEGATIVE); GLUCOSE, URINE (UA) >=1000 mg/dL (NEGATIVE); KETONES,URINE (UA) NEGATIVE (NEGATIVE); LEUKOCYTE ESTERASE, URINE TRACE (NEGATIVE); NITRITE,URINE NEGATIVE (NEGATIVE); OCCULT BLOOD,URINE NEGATIVE (NEGATIVE); PH,URINE 6.5 PH (5.0-7.5); PROTEIN,URINE NEGATIVE (NEGATIVE); UROBILINOGEN,URINE 0.2 (NORMAL) E.U./dL (NORMAL)
[2019-02-07 22:10] LABS: ALBUMIN/GLOBULIN RATIO 1.1 (1.0-2.2); BILIRUBIN,TOTAL 0.3 mg/dL (0.2-1.0); CALCIUM 9.8 mg/dL (8.5-10.3); CREATININE 1.2 mg/dL (0.4-1.0); TOTAL PROTEIN 7.8 g/dL (6.7-8.2)
[2019-02-07 22:15] LABS: CLARITY,URINE HAZY (CLEAR)
[2019-02-07 22:32] LABS: BACTERIA,URINE Few /HPF (None Seen); RBC,URINE None Seen /HPF (0-5); SQUAMOUS EPITHELIAL CELL,UR MANY Squamous (<= Few)
[2019-02-07] MEDS ORDERED: MORPHINE 2 MG/ML CARPUJECT IVP STA (22:43)
[2019-02-07] MEDS ORDERED: IOVERSOL 320 100 ML VIAL IVP ONE ×2 (23:02→23:15)
--- NOTE | 2019-02-07 23:51 | CT Report ---
Reason: bilateral flank pain Procedure Date: 02/07/2019 Accession Number: [id number] / [id number] Procedure: CT - Abdomen/Pelvis W CPT Code: FULL RESULT: EXAM: CT ABDOMEN AND PELVIS EXAM DATE: 02/07/2019 11:13 PM. CLINICAL HISTORY: Bilateral flank pain. COMPARISONS: ABDOMEN/PELVIS W/ 02/24/2018 4:15 PM. TECHNIQUE: Routine helical CT imaging was performed through the abdomen and pelvis. IV contrast: OPTI 320 100ML. Enteric contrast: No. Reconstructions: Coronal and sagittal. In accordance with CT protocol optimization, one or more of the following dose reduction techniques were utilized for this exam: automated exposure control, adjustment of mA and/or KV based on patient size, or use of iterative reconstructive technique. FINDINGS: Lung Bases: Unremarkable. Liver: Diffuse fatty infiltration. Gallbladder/Bile Ducts: Postoperative changes of cholecystectomy. No biliary dilatation. Spleen: Normal. Pancreas: Normal. Adrenal Glands: Normal. Kidneys: Normal. No masses or hydronephrosis. Peritoneal Cavity/Bowel: There is long segment colonic wall thickening extending through the descending and sigmoid colon, new from previous, with mild surrounding inflammation. Differential considerations would include ulcerative colitis and infectious colitis. The distribution would be unusual for ischemic colitis, given the patent inferior mesenteric artery, and the length of involvement would be unusual for diverticulitis.. The appendix is not confidently identified, but no pericecal inflammation or abnormal fluid collection is identified to suggest acute appendicitis. No small bowel obstruction, free gas, or free fluid. No abdominal adenopathy. Pelvic Organs: Normal. The bladder and visualized pelvic organs are within normal limits. Vasculature: Atherosclerotic calcifications. No aneurysm. Bones: Degenerative changes. Other: None. IMPRESSION: Long segment colonic wall thickening, extending from the descending through the sigmoid colon, with adjacent inflammatory changes, compatible with colitis (ulcerative or infectious most likely). Fatty infiltration of the liver. Postoperative changes of cholecystectomy. RADIA
[2019-02-08] MEDS ORDERED: MORPHINE 2 MG/ML CARPUJECT IVP STA (01:44)
[2019-02-08] MEDS ORDERED: SODIUM CHLORIDE 0.9% 1,000 ML IV STA (01:49)
[2019-02-08] MEDS ORDERED: ONDANSETRON 4 MG/2 ML VIAL IVP PRN (01:58)
[2019-02-08] MEDS ORDERED: SODIUM CHLORIDE FLUSH 0.9% 10 ML SYRINGE IVP PRN (01:58)
[2019-02-08] MEDS ORDERED: ACETAMINOPHEN 325 MG TABLET PO PRN (01:58)
[2019-02-08] MEDS ORDERED: IPRATROPIUM/ALBUTEROL 3 ML NEB INH PRN (02:05)
--- NOTE | 2019-02-08 02:10 | HISTORY & PHYSICAL EXAMINATION ---
Chief Complaint - Chief Complaint Chief Complaint: Kidney infection History of Present Illness - Admitted From Admitted From:: Home - History Obtained From Records Reviewed: Yes History obtained from: Patient, ER Physician - History of Present Illness HPI Comment/Other: This is a 53 year old female with a past medical history significant for type 2 diabetes, bipolar disorder, COPD, and chronic pain who presents from home with concerns of a kidney infection. She was seen in the emergency department about two weeks ago for left flank pain and was found to have pyuria and bactera present on her urinalysis. She was diagnosed with pyelonephritis and discharged on a 7 day course of Cefdinir. She states she completed the course of antibiotics but that her flank pain is now bilateral. She denies dysuria, urgency, frequency but reports decreased urine output. She has had poor oral intake due to a poor appetite. She denies fevers but endorses chills and states that she is always hot or cold. She also reports diarrhea over the past few days. She has had approximately 5 bowel movements a day. She does not recall noticing any blood. She reports her stool are liquid and foul smelling. She has chronic abdominal pain and she does not feel that her pain is worse than usual. She reports mild nausea but no abdominal pain. She has never had colonoscopy. She reports family history of colon cancer on her maternal side including mother, grandmother, and uncle. She reports no history of ulcerative colitis or crohn's disease in the family to her knowledge. She has not travelled anywhere recently and reports no sick contacts or anyone with food poisoning. In the ER, she was found to afebrile, normotensive, and without tachycardia. Labs were significant for a blood glucose >300 without an anion gap or decreased bicarbonate. Her creatinine was elevated at 1.2 compared to baseline. Her urinalysis continued to reveal some pyuria and a few bacteria but there were many squamous cells noted. She had a CT of the abdomen/pelvis performed which showed long segment colonic wall thickening, extending from the descending through sigmoid colon with inflammatory changes most suspicious for infectious or ulcerative colitis and less likely ischemic. She received IV hydration and IV morphine for her pain. She will be admitted under observation for further management. I did speak with the patient regarding her code status. She that she is a DNR and her daughter is the legal POA. History - Past Medical History Cardiovascular: reports: Hypertension Respiratory: reports: COPD, Pneumonia Neuro: reports: None Endocrine/Autoimmune: reports: Type 2 diabetes, HyPOthyroidism GI: reports: Ulcers INFORMATION TECHNOLOGY DATA ANALYST: reports: None : reports: Kidney stones HEENT: reports: None Psych: reports: Depression, Anxiety, Bipolar disorder Musculoskeletal: reports: Fibromyalgia, Chronic back pain Derm: reports: None MRSA Hx?: No - Past Surgical History General: reports: Cholecystectomy, Appendectomy Ortho: reports: Spine surgery /INFORMATION TECHNOLOGY DATA ANALYST: reports: section, Tubal ligation HEENT: reports: Other - Family & Social History Family History Comment/Other: She reports a family history of heart disease. Her family history is significant for colon cancer with her mother, grandmother, and uncle all diagnosed. She denies a history of inflammatory bowel disease. Living arrangement: At home Living Situation: With family Social History Notes: She lives her on [facility] with her and daughter. She does not work. She previously smoked 2 packs of cigarettes a day but quit 6 weeks ago. She now vapes but is attempting to wean herself off of the nicotine. She denies drug use and alcohol use. - Substance History Use: Uses substance without health or social issues: Tobacco - POLST Patient has POLST: No Meds/Allgy - Home Medications Home Medications: Ambulatory Orders Medication Instructions Recorded Confirmed DULoxetine [Cymbalta] 60 mg PO DAILY 06/16/13 02/08/19 Levothyroxine Sodium [Levoxyl] 250 mcg PO DAILY 06/16/13 02/08/19 QUEtiapine [SEROquel] 600 mg PO DAILY 06/16/13 02/08/19 Syring-Needl,Disp,Insul,0.3 ml 1 each MC DAILY #30 disp.syrin 09/05/14 05/29/17 [Insulin Syringe] Insulin Glargine [Lantus] 50 unit SUBQ QPM 09/26/16 02/08/19 Ipratropium/Albuterol [Combivent 1 puffs IH Q6H PRN #1 aer.w.adap 09/26/16 Respimat] Insulin Lispro [HumaLOG] 0 unit SUBQ BID 05/27/17 02/08/19 Alprazolam [Xanax] 2 mg PO DAILY PM 02/08/18 02/08/19 Morphine ER 15 mg PO BID 02/08/18 02/08/19 Morphine ER 30 mg PO DAILY 02/08/18 02/08/19 Docusate Sodium 100 mg PO DAILY #30 capsule 10/11/18 02/08/19 Morphine Sulfate 30 mg PO DAILY PM 02/08/19 02/08/19 Tizanidine HCl 3 tab PO DAILY 02/08/19 02/08/19 - Allergies Allergies/Adverse Reactions: Allergies Allergy/AdvReac Type Severity Reaction Status Date / Time No Known Drug Allergies Allergy Verified 02/07/19 21:38 Review of Systems - Constitutional Constitutional: reports: Fatigue, Chills, Poor appetite. denies: Fever - Eyes Eyes: reports: Vision loss (Chronic) - Cardiovascular Cariovascular: denies: Chest pain - Respiratory Respiratory: denies: SOB at rest - Gastrointestinal Gastrointestinal: reports: Abdominal pain, Diarrhea, Nausea, Poor appetite. denies: Black stools, Bloody stools, Vomiting - Genitourinary Genitourinary: reports: Flank pain, Other (Decreased urine output). denies: Dysuria, Frequency, Urgency, Hematuria - Musculoskeletal Musculoskeletal: reports: Muscle pain, Back pain - Neurological Neurological: reports: General weakness, Headache. denies: Focal weakness - Psychiatric Psychiatric: reports: Anxiety - All Other Systems All Other Systems: reports: Reviewed and negative Prior Level of Functionality: Independent with ADLs. Exam - Vital Signs Vital Signs: Vital Signs x48h Temp Pulse Resp BP Pulse Ox 02/08/19 00:40 76 16 128/84 H 96 02/07/19 23:46 77 16 124/80 97 02/07/19 23:15 80 14 154/78 H 94 02/07/19 21:44 20 02/07/19 21:35 36.0 C L 91 18 134/91 H 97 - Physical Exam General Appearance: positive: No acute distress, Alert Eyes Bilateral: positive: Normal inspection ENT: positive: ENT inspection nml Neck: positive: Nml inspection Respiratory: positive: No respiratory distress. negative: Wheezes, Rales, Rhonchi Cardiovascular: positive: Regular rate & rhythm, No murmur. negative: Tachycardia, Bradycardia, Systolic murmur Abdomen: positive: Nml bowel sounds, No distention, Tenderness (Throughout the abdomen although appears to be the most tender in RLQ and LLQ). negative: Guarding, Rebound Back: positive: CVA tenderness (R), CVA tenderness (L) Skin: positive: Color nml, No rash, Warm, Dry Extremities: positive: Full ROM, No pedal edema Neurologic/Psychiatric: positive: Oriented x3, Depressed mood/affect. negative: Disoriented to person, Disoriented to place, Disoriented to time, Weakness Conclusion/Plan - Problem List (1) Colitis, acute Conclusion/Plan: Presented with flank pain, abdominal pain and nonbloody diarrhea. Hemodynamically stable with no tachycardia or fever. Recently treated for pyelonephritis with antibiotics (7 [address] of abdomen/pelvis concerning for colitis of descending colon and sigmoid (radiologist mentioned infectious vs ulcerative colitis). She denies NSAID use so less likely microscopic colitis. CT also mentioned low suspicion for ischemic colitis given patent ALEX and length of involvement makes diverticulitis less likely. - IV hydration - Pain control with IV Morphine - Zofran IV - Will hold off on antibiotics until stool cultures are obtained as she does not appear septic and abdominal exam is relatively benign - Check CRP and ESR - Start clear liquid diet, advance as tolerated - Will consider General Surgery consult if Colonoscopy is warranted to rule out IBD (2) Acute kidney injury Conclusion/Plan: Likely pre-renal secondary to dehydration from ongoing diarrhea. Creatinine elevated at 1.2, baseline is 0.8. - IV hydration - Monitor renal function and urine output (3) Type 2 diabetes mellitus with hyperglycemia Conclusion/Plan: She has history of type 2 diabetes treated with insulin. Last A1c from approximately four years ago was 9.8%. Presented with hyperglycemia and no anion gap. - Resume home Lantus and start sliding scale - Clear liquid diet as tolerated - Check A1c (4) COPD (chronic obstructive pulmonary disease) Conclusion/Plan: She is on Combivent at home. Not in exacerbation. - Duoneb PRN (5) Hypothyroidism Conclusion/Plan: She is on Synthroid at home. Last TSH from approximately four years ago. - Continue Synthroid - Check TSH (6) Bipolar 1 disorder Conclusion/Plan: She is on Seroquel at home. Stable. - Continue Seroquel (7) Chronic pain Conclusion/Plan: She is on Morphine, Tizanidine and Cymbalta at home. Currently complaining of abdominal pain related to colitis. - Continue home oral Morphine in addition to IV morphine - Continue Cymbalta and Tizanidine - Lab Results Lab results reviewed: Yes Fish Bones: 02/07/19 21:47 02/07/19 21:47 - Diagnostic Imaging Results Diagnostic Imaging Results: positive: Final report reviewed Core Measures - Anticipated LOS I expect patient to be DC'd or transferred within 96 hours.: Yes - Issues Hospital Issues and Management Plan: Admitted for colitis and acute kidney injury. Will hydrate with IV fluids and rule out infectious causes. - DVT/VTE - Prophylaxis VTE/DVT Device ordered at admit?: Yes
[2019-02-08] MEDS ORDERED: QUEtiapine 100 MG TABLET PO SCH ×3 (02:48→21:00)
[2019-02-08] MEDS ORDERED: ALPRAZolam 0.25 MG TABLET PO PRN (02:48)
[2019-02-08] MEDS: INSULIN REGULAR HUMAN 100 UNIT/1 ML 10 ML MDV SUBQ SCH ×2 (03:28→05:10)
[2019-02-08 06:08] LABS: BASOPHILS # (AUTO) 0.1 10^3/uL (0.0-0.1); BASOPHILS % (AUTO) 0.7 %; EOSINOPHILS # (AUTO) 0.1 10^3/uL (0.0-0.7); EOSINOPHILS % (AUTO) 1.3 %; LYMPHOCYTES # (AUTO) 2.3 10^3/uL (1.5-3.5); LYMPHOCYTES % (AUTO) 30.8 %; MEAN CORPUSCULAR HEMOGLOBIN 30.3 pg (27.0-31.0); MEAN CORPUSCULAR HGB CONC 33.3 g/dL (32.0-36.0); MEAN CORPUSCULAR VOLUME 90.9 fL (81.0-99.0); MONOCYTES # (AUTO) 0.5 10^3/uL (0.0-1.0); MONOCYTES % (AUTO) 6.5 %; NEUTROPHILS # (AUTO) 4.2 10^3/uL (1.5-6.6); PLT - PLATELET COUNT 330 10^3/uL (130-450); RED BLOOD COUNT 3.63 10^6/uL (4.20-5.40); RED CELL DISTRIBUTION WIDTH 14.3 % (12.0-15.0); WHITE BLOOD COUNT 7.4 x10^3/uL (4.8-10.8)
[2019-02-08] MEDS: MORPHINE 2 MG/ML CARPUJECT IVP PRN ×2 (06:18→12:01)
[2019-02-08 06:19] LABS: CALCIUM 8.8 mg/dL (8.5-10.3); CREATININE 0.9 mg/dL (0.4-1.0); MAGNESIUM 1.8 mg/dL (1.7-2.8); PHOSPHORUS 4.2 mg/dL (2.5-4.6)
[2019-02-08 06:23] LABS: HB2 TOTAL 11.4 g/dL; HEMOGLOBIN A1C 1.29 g/dL; HEMOGLOBIN A1C % 12.5 % (4.6-6.2)
[2019-02-08] MEDS ORDERED: POTASSIUM CHLORIDE 20 MEQ TABLET PO ONE (06:24)
[2019-02-08] MEDS: LEVOTHYROXINE 100 MCG TABLET PO SCH (06:51)
[2019-02-08] MEDS: LEVOTHYROXINE 125 MCG TABLET PO SCH (06:51)
[2019-02-08] MEDS ORDERED: INSULIN REGULAR HUMAN 100 UNIT/1 ML 10 ML MDV SUBQ SCH (07:00)
[2019-02-08] MEDS ORDERED: LEVOTHYROXINE 125 MCG TABLET PO SCH (07:00)
[2019-02-08] MEDS: INSULIN ASPART 300 UNIT/3 ML PEN SUBQ SCH ×4 (08:02→20:59)
[2019-02-08] MEDS: ENOXAPARIN 40 MG/0.4 ML SYRINGE SUBQ SCH (08:03)
[2019-02-08] MEDS: SODIUM CHLORIDE FLUSH 0.9% 10 ML SYRINGE IVP SCH ×2 (08:04→18:44)
[2019-02-08] MEDS ORDERED: tiZANidine 4 MG TABLET PO SCH ×2 (09:00)
[2019-02-08] MEDS ORDERED: MORPHINE ER 15 MG TABLET PO SCH (09:00)
[2019-02-08] MEDS ORDERED: SODIUM CHLORIDE 0.9% 1,000 ML IV SCH (09:00)
[2019-02-08] MEDS ORDERED: DULoxetine 30 MG CAPSULE PO SCH (09:00)
[2019-02-08] MEDS: PIPERACILLIN/TAZOBACTAM 3.375 GM in SODIUM CHLORIDE 0.9% MINIBAG 100 ML IV SCH ×2 (09:03→14:24)
[2019-02-08] MEDS ORDERED: PSYLLIUM PACKET PO PRN (14:04)
[2019-02-08] MEDS ORDERED: MORPHINE IR 15 MG TABLET PO PRN (14:55)
[2019-02-08] MEDS ORDERED: tiZANidine 4 MG TABLET PO PRN (14:55)
[2019-02-08] MEDS ORDERED: ALBUTEROL NEB 2.5 MG/3 ML INH PRN (15:02)
[2019-02-08] MEDS ORDERED: SODIUM CHLORIDE 0.9% 500 ML IV ONE (16:33)
[2019-02-08] MEDS: CHOLECALCIFEROL 1,000 UNIT TABLET PO SCH (16:58)
[2019-02-08] MEDS: LACTOBACILLUS RHAMNOSUS GG CAPSULE PO SCH (16:58)
[2019-02-08] MEDS: OMEGA-3 ACID ETHYL ESTERS 1 GM CAPSULE PO SCH (16:58)
[2019-02-08] MEDS: DULoxetine 30 MG CAPSULE PO SCH (20:56)
[2019-02-08] MEDS ORDERED: INSULIN GLARGINE 300 UNIT/3 ML PEN SUBQ SCH ×3 (21:00)
[2019-02-08] MEDS: ALPRAZolam 0.25 MG TABLET PO SCH (22:05)
[2019-02-08] MEDS: GABAPENTIN 100 MG CAPSULE PO SCH (22:06)
[2019-02-08] MEDS: LACTATED RINGERS 1,000 ML IV SCH (22:09)
[2019-02-09] MEDS: PIPERACILLIN/TAZOBACTAM 3.375 GM in SODIUM CHLORIDE 0.9% MINIBAG 100 ML IV SCH ×3 (00:01→13:18)
[2019-02-09] MEDS: SODIUM CHLORIDE FLUSH 0.9% 10 ML SYRINGE IVP SCH ×2 (00:04→14:04)
[2019-02-09 06:01] LABS: BASOPHILS % (AUTO) 0.5 %; EOSINOPHILS % (AUTO) 1.3 %; HGB - HEMOGLOBIN 10.5 g/dL (12.0-16.0); LYMPHOCYTES % (AUTO) 23.5 %; MEAN CORPUSCULAR HEMOGLOBIN 30.9 pg (27.0-31.0); MEAN CORPUSCULAR HGB CONC 33.1 g/dL (32.0-36.0); MEAN CORPUSCULAR VOLUME 93.2 fL (81.0-99.0); MEAN PLATELET VOLUME 8.6 fL (7.9-10.8); MONOCYTES % (AUTO) 10.6 %; NEUTROPHILS % (AUTO) 58.3 %; PLT - PLATELET COUNT 305 10^3/uL (130-450); RED CELL DISTRIBUTION WIDTH 14.5 % (12.0-15.0); WHITE BLOOD COUNT 8.5 x10^3/uL (4.8-10.8)
[2019-02-09 06:03] LABS: ABNORMAL LYMPHS % (MANUAL) 0 %
[2019-02-09] MEDS: ALPRAZolam 0.25 MG TABLET PO SCH ×2 (06:05→13:20)
[2019-02-09] MEDS: LEVOTHYROXINE 100 MCG TABLET PO SCH (06:06)
[2019-02-09] MEDS: LEVOTHYROXINE 125 MCG TABLET PO SCH (06:06)
[2019-02-09] MEDS: GABAPENTIN 100 MG CAPSULE PO SCH ×2 (06:06→13:20)
[2019-02-09 06:09] LABS: CALCIUM 8.7 mg/dL (8.5-10.3); CREATININE 1.1 mg/dL (0.4-1.0); PHOSPHORUS 4.7 mg/dL (2.5-4.6)
[2019-02-09 06:21] LABS: BAND NEUTROPHILS % (MANUAL) 10 %; DIFFERENTIAL COMMENT MANUAL DIFFERENTIAL; EOSINOPHILS # (MANUAL) 0.2 10^3/uL (0-0.7); LYMPHOCYTES % (MANUAL) 23 %; METAMYELOCYTES % (MANUAL) 3 %; MONOCYTES # (MANUAL) 0.4 10^3/uL (0.0-1.0); MYELOCYTES % (MANUAL) 5 %; PLATELET ESTIMATE, MANUAL NORMAL (130-450,000) (NORMAL); RBC MORPHOLOGY (MULTIPLE) NORMAL APPEARANCE (NORMAL)
[2019-02-09] MEDS ORDERED: SODIUM CHLORIDE 0.9% 1,000 ML IV SCH (08:00)
[2019-02-09] MEDS: INSULIN ASPART 300 UNIT/3 ML PEN SUBQ SCH ×2 (08:29→12:55)
[2019-02-09] MEDS: DULoxetine 30 MG CAPSULE PO SCH (08:37)
[2019-02-09] MEDS: CHOLECALCIFEROL 1,000 UNIT TABLET PO SCH (08:37)
[2019-02-09] MEDS: LACTOBACILLUS RHAMNOSUS GG CAPSULE PO SCH (08:38)
[2019-02-09] MEDS: OMEGA-3 ACID ETHYL ESTERS 1 GM CAPSULE PO SCH (08:38)
[2019-02-09] MEDS: ENOXAPARIN 40 MG/0.4 ML SYRINGE SUBQ SCH (08:48)
[2019-02-09] MEDS ORDERED: MORPHINE ER 15 MG TABLET PO SCH ×2 (09:00→11:30)
[2019-02-09] MEDS ORDERED: MORPHINE SULFATE ER 30 MG TABLET PO SCH (09:00)
[2019-02-09] MEDS ORDERED: LEVOTHYROXINE SODIUM 200 MCG PO SCH (09:00)
[2019-02-09 12:33] VITALS: BP 122/66
[2019-02-09] MEDS: LACTATED RINGERS 1,000 ML IV SCH (12:57)
--- NOTE | 2019-02-09 13:36 | Discharge Plan ---
Discharge Plan Problem Reviewed?: Yes Disposition: Home, Self Care Condition: Poor Prescriptions: Ciprofloxacin HCl [Cipro] 500 mg PO BID #10 tablet metroNIDAZOLE [Flagyl] 250 mg PO Q8H #15 tablet Diet: Diabetic Activity Restrictions: Activity as Tolerated Shower Restrictions: No (fall precaution) Instruction Topics: Ciprofloxacin tablets, Metronidazole tablets or capsules Health Concerns: medical non-compliance, colitis Plan of Treatment: Discussed with you about your medical compliance issue, special as you report you did not compliance to your diabetes and hypothyroidism medical schedule. It is crucial importance for you to have medical-compliance. You tolerated the diet, and your abdominal pain was controlled. The antibiotics Cipro and Flagyl are prescribed for you to finish the treatment of course. you were found to have colitis in your CT of abdomen. Care Goals: stabilization and improvement of your medical conditions. Assessment: CT of your abdomen revealed colitis. Additional Instructions or Follow Up instructions: you may followup your PCP in one week, followup your pain management as yours schedule. You are strongly advised to have medical-compliance to your medical schedule. Should your symptoms return or worsen, you may present ER or call 911 for help. No Smoking: If you smoke, Please STOP! Call for help. Follow-up with: James Hager DO [Primary Care Provider] -
--- NOTE | 2019-02-09 13:50 | DISCHARGE SUMMARY ---
Discharge Summary Discharge Date: 02/09/19 Discharging Provider: MURILLO Primary Care Provider: James Angulo Condition at Discharge: Poor Discharge Disposition: 01 Home, Self Care Discharge Facility Name: home - DIAGNOSES Admission Diagnoses: (1) Colitis, acute (2) Acute kidney injury (3) Type 2 diabetes mellitus with hyperglycemia (4) COPD (chronic obstructive pulmonary disease) (5) Hypothyroidism (6) Bipolar 1 disorder (7) Chronic pain Discharge Diagnoses with Status of Each Condition: 1) Colitis, acute stable (2) Acute kidney injury stable/improved (3) Type 2 diabetes mellitus with hyperglycemia stable (4) COPD (chronic obstructive pulmonary disease) stable (5) Hypothyroidism stable (6) Bipolar 1 disorder stable (7) Chronic pain stable (8) medical non-compliance educate pt - HPI History of Present Illness: refer from Dr. Linda's HPI on 02/08/19 This is a 53 year old female with a past medical history significant for type 2 diabetes, bipolar disorder, COPD, and chronic pain who presents from home with concerns of a kidney infection. She was seen in the emergency department about two weeks ago for left flank pain and was found to have pyuria and bactera present on her urinalysis. She was diagnosed with pyelonephritis and discharged on a 7 day course of Cefdinir. She states she completed the course of antibiotics but that her flank pain is now bilateral. She denies dysuria, urgency, frequency but reports decreased urine output. She has had poor oral intake due to a poor appetite. She denies fevers but endorses chills and states that she is always hot or cold. She also reports diarrhea over the past few days. She has had approximately 5 bowel movements a day. She does not recall noticing any blood. She reports her stool are liquid and foul smelling. She has chronic abdominal pain and she does not feel that her pain is worse than usual. She reports mild nausea but no abdominal pain. She has never had colonoscopy. She reports family history of colon cancer on her maternal side including mother, grandmother, and uncle. She reports no history of ulcerative colitis or crohn's disease in the family to her knowledge. She has not travelled anywhere recently and reports no sick contacts or anyone with food poisoning. In the ER, she was found to afebrile, normotensive, and without tachycardia. Labs were significant for a blood glucose >300 without an anion gap or decreased bicarbonate. Her creatinine was elevated at 1.2 compared to baseline. Her urinalysis continued to reveal some pyuria and a few bacteria but there were many squamous cells noted. She had a CT of the abdomen/pelvis performed which showed long segment colonic wall thickening, extending from the descending through sigmoid colon with inflammatory changes most suspicious for infectious or ulcerative colitis and less likely ischemic. She received IV hydration and IV morphine for her pain. She will be admitted under observation for further manage ment. I did speak with the patient regarding her code status. She that she is a DNR and her daughter is the legal POA. - HOSPITAL COURSE Hospital Course: pt was admitted for abdominal pain. CT of abdomen found colitis. pt was treated with antibiotics Zosyn. after treatment, pt's abdominal is controlled. pt tolerate the regular diet. pt has no nausea, vomiting. Also pt has no more diarrhea in the hospital. pt request to be d/c to home today. pt is prescribed antibiotics to finish the treatment course. pt also report she did not have medical compliance to, special her diabetes and hypothyroidism medication. Her TSH was 222 and A1C was 12.5. pt was educated for medical compliance. She stated she will do medical compliance. The detail is as the below 1) Colitis, acute stable. pt's abdominal pain is controlled. pt tolerate the regular diet. pt request to be d/c to home today. (2) Acute kidney injury stable/improved. pt was educated hydration (3) Type 2 diabetes mellitus with hyperglycemia stable. pt was educated for medical compliance, followup PCP for management (4) COPD (chronic obstructive pulmonary disease) stable (5) Hypothyroidism stable. pt was educated for medical compliance, followup PCP for management (6) Bipolar 1 disorder stable (7) Chronic pain stable, followup pain management (8) medical non-compliance educate pt for medical compliance. - ALLERGIES Allergies/Adverse Reactions: Allergies Allergy/AdvReac Type Severity Reaction Status Date / Time No Known Drug Allergies Allergy Verified 02/07/19 21:38 - MEDICATIONS Home Medications: Ambulatory Orders Medication Instructions Recorded Confirmed Levothyroxine Sodium [Levoxyl] 200 mcg PO DAILY 06/16/13 02/08/19 Syring-Needl,Disp,Insul,0.3 ml 1 each MC DAILY #30 disp.syrin 09/05/14 05/29/17 [Insulin Syringe] Insulin Glargine [Lantus] 40 unit SUBQ QPM 09/26/16 02/08/19 Ipratropium/Albuterol [Combivent 1 puffs IH Q6H PRN #1 aer.w.adap 09/26/16 02/08/19 Respimat] Insulin Lispro [Humalog] 14 unit SUBQ ACHS PRN 05/27/17 02/08/19 Alprazolam [Xanax] 0.5 - 1 mg PO TID 02/08/18 02/08/19 Docusate Sodium 100 mg PO DAILY #30 capsule 10/11/18 02/08/19 Duloxetine HCl [Cymbalta] 60 mg PO BID 02/08/19 02/08/19 Gabapentin 100 mg PO TID 02/08/19 02/08/19 Morphine Sulfate 7.5 - 15 mg PO BID PRN 02/08/19 02/08/19 Morphine Sulfate ER [Ms Contin] 30 mg PO DAILY 02/08/19 02/08/19 Quetiapine Fumarate 600 mg PO QPM 02/08/19 02/08/19 Tizanidine HCl 4 mg PO TID PRN 02/08/19 02/08/19 Ciprofloxacin HCl [Cipro] 500 mg PO BID #10 tablet 02/09/19 metroNIDAZOLE [Flagyl] 250 mg PO Q8H #15 tablet 02/09/19 - PHYSICAL EXAM AT DISCHARGE General Appearance: positive: No acute distress, Alert. negative: Lethargic Eyes Bilateral: positive: Normal inspection, PERRL, No lid inflammation, Co njunctivae nml ENT: positive: ENT inspection nml, Pharynx nml, No signs of dehydration. negative: Purulent nasal drainage, Pharyngeal erythema, Oral lesions Neck: positive: Nml inspection, Thyroid nml, No JVD, Trachea midline. negative: Thyromegaly, Lymphadenopathy (R), Lymphadenopathy (L), Stiff neck, Swelling/bruising, Tracheal deviation Respiratory: positive: Chest non-tender, No respiratory distress, Breath sounds nml. negative: Wheezes, Rales, Rhonchi Cardiovascular: positive: Regular rate & rhythm, No murmur, No gallop. negative: Irregularly irregular, Extrasystoles, Tachycardia, Bradycardia, JVD present, Systolic murmur, Diastolic murmur Peripheral Pulses: positive: 2+ Abdomen: positive: Non-tender, No organomegaly, Nml bowel sounds, No distention. negative: Tenderness, Guarding, Rebound Back: negative: CVA tenderness (R), CVA tenderness (L) Skin: positive: Color nml, No rash, Warm, Dry. negative: Cyanosis, Diaphoresis, Pallor Extremities: positive: Non-tender, Full ROM, Nml appearance. negative: Calf tenderness, Arti's sign/cords Neurologic/Psychiatric: positive: Oriented x3, Sensation nml, Mood/affect nml. negative: Weakness, Sensory loss, Facial droop, Slurred/abnml speech, Depressed mood/affect - LABS Result Diagrams: 02/09/19 05:46 02/09/19 05:46 - FOLLOW UP Follow Up: Discussed with you about your medical compliance issue, special as you report you did not compliance to your diabetes and hypothyroidism medical schedule. It is crucial importance for you to have medical-compliance. You tolerated the diet, and your abdominal pain was controlled. The antibiotics Cipro and Flagyl are prescribed for you to finish the treatment of course. you were found to have colitis in your CT of abdomen. you may followup your PCP in one week, followup your pain management as yours schedule. You are strongly advised to have medical-compliance to your medical schedule. Should your symptoms return or worsen, you may present ER or call 911 for help. - TIME SPENT Time Spent in Discharge (Minutes): 60
== END 2019-02-09 14:43 | disposition home or self-care (01) ==
LOC: ED 21:29 → MS2 02-08 01:58
PROVIDERS: ADMIT Internal Medicine; ATTEND Nurse Practitioner Gerontology
DX: K52.9 Noninfective gastroenteritis and colitis, unspecified (principal); N17.9 Acute kidney failure, unspecified; E11.65 Type 2 diabetes mellitus with hyperglycemia; Z79.4 Long term (current) use of insulin; J44.9 Chronic obstructive pulmonary disease, unspecified; E03.9 Hypothyroidism, unspecified; F31.9 Bipolar disorder, unspecified; G89.29 Other chronic pain; N39.0 Urinary tract infection, site not specified; E86.0 Dehydration; Z91.14 Patient's other noncompliance with medication regimen; Z79.891 Long term (current) use of opiate analgesic; Z80.0 Family history of malignant neoplasm of digestive organs; F17.290 Nicotine dependence, other tobacco product, uncomplicated; Z66 Do not resuscitate
CPT/HCPCS: 36415; 74177; 80048; 80053; 81001; 83036; 83690; 83735; 84100; 84443; 85025; 85651; 86140; 93306; 94640; 96361; 96365; 96366; 96372; 96375; 96376; 99285; 99406; A9270; G0378; J1650; J1815; J7120; Q9967; 81003; 82274; 87086

== ENCOUNTER 2019-12-06 12:35 | Outpatient (CLI) | payer MEDICARE, MEDICAID ==
--- NOTE | 2019-12-06 14:20 | MRI Report ---
PROCEDURE: Knee RT W/O INDICATIONS: INT DERRANGEMENT OF RT KNEE TECHNIQUE: Noncontrast sagittal PD fast spin echo and T2 fast spin echo with fat saturation, sagittal 3-D gradie nt sequence with fat saturation; coronal T1 spin echo and PD fast spin echo with fat saturation, and axial PD fast spin echo with fat saturation through the knee. COMPARISON: None. FINDINGS: Image quality: Excellent. Menisci: There is suggestion of subtle oblique tear involving posterior horn of medial meniscus exten ding to inferior articulating surface. No focal lateral meniscal tear. The meniscal root ligaments ap pear intact. Cruciate ligaments: The anterior and posterior cruciate ligaments appear intact. Medial structures: Low to moderate grade MCL sprain is seen. The posterior oblique ligament, semimemb ranosus tendon insertions, and oblique popliteal ligament, and meniscocapsular junction appear intact . Visualized portions of the pes anserinus tendons appear normal. No abnormal bursal fluid. Lateral structures: The lateral collateral ligament, long and short heads of the biceps femoris tend on appear intact. The popliteus tendon appears normal; the popliteofibular ligament appears intact. The posterosuperior and anteroinferior popliteomeniscal fascicles appear intact. The arcuate and fa bellofibular ligaments appear intact, around the lateral inferior geniculate artery. Iliotibial band appears normal. Anterior structures: Nonspecific mild soft tissue swelling and edema along anterior aspect of patella tendon and patella is seen. The quadriceps and patellar tendons appear intact. Patellar alignment i s normal. No femoral trochlear dysplasia or ventral trochlear prominence. No edema in the infrapate llar fat pad. Bones and cartilage: No bone marrow contusions or fractures. Low-grade chondromalacia involving medi al femoral tibial compartment and lateral facet of patella cartilage is seen. Joint space: There is small amount of joint fluid. No Joy?s cyst. Normal appearing synovial plic ae are incidentally noted. IMPRESSION: 1. Subtle oblique tear involving posterior horn of the medial meniscus extending to inferior articula ting surface. No evidence of focal lateral meniscal tear. 2. Low-grade chondromalacia in medial femoral tibial compartment and lateral facet of patella cartila ge. No fracture or dislocation. Small joint effusion. 3. Cruciate ligaments are intact. Low to moderate grade MCL sprain. Reviewed by: Jesus Horton MD on 12/06/2019 2:19 PM PDT Approved by: Jesus Horton MD on 12/06/2019 2:19 PM PDT Station ID: [id number]
== END 2019-12-06 12:36 | disposition home or self-care (01) ==
LOC: DI 12:35
PROVIDERS: ATTEND Family Medicine
DX: S83.241A Other tear of medial meniscus, current injury, right knee, initial encounter (principal); S83.411A Sprain of medial collateral ligament of right knee, initial encounter; M22.41 Chondromalacia patellae, right knee; M25.461 Effusion, right knee

== ENCOUNTER 2020-04-25 08:00 | Outpatient (CLI) | payer MEDICARE, MEDICAID ==
[2020-04-25 18:03] LABS: BASOPHILS # (AUTO) 0.1 10^3/uL (0.0-0.1); BASOPHILS % (AUTO) 0.6 %; EOSINOPHILS # (AUTO) 0.1 10^3/uL (0.0-0.7); EOSINOPHILS % (AUTO) 1.5 %; HGB - HEMOGLOBIN 14.4 g/dL (12.0-16.0); LYMPHOCYTES # (AUTO) 2.3 10^3/uL (1.5-3.5); LYMPHOCYTES % (AUTO) 24.7 %; MEAN CORPUSCULAR HEMOGLOBIN 28.8 pg (27.0-31.0); MEAN CORPUSCULAR HGB CONC 32.7 g/dL (32.0-36.0); MEAN CORPUSCULAR VOLUME 88.2 fL (81.0-99.0); MEAN PLATELET VOLUME 9.2 fL (7.9-10.8); MONOCYTES # (AUTO) 0.6 10^3/uL (0.0-1.0); MONOCYTES % (AUTO) 6.7 %; NEUTROPHILS # (AUTO) 6.2 10^3/uL (1.5-6.6); NEUTROPHILS % (AUTO) 65.4 %; PLT - PLATELET COUNT 351 10^3/uL (130-450); RED CELL DISTRIBUTION WIDTH 15.6 % (12.0-15.0); WHITE BLOOD COUNT 9.5 x10^3/uL (4.8-10.8)
[2020-04-25 18:25] LABS: ALBUMIN 4.1 g/dL (3.2-5.5); ALBUMIN/GLOBULIN RATIO 1.1 (1.0-2.2); ALKALINE PHOSPHATASE 141 IU/L (42-121); ALT ALANINE AMINOTRANSFERASE 58 IU/L (10-60); AST ASPARTATE AMINOTRANSFERASE 31 IU/L (10-42); BILIRUBIN,TOTAL 0.3 mg/dL (0.2-1.0); BUN - BLOOD UREA NITROGEN 18 mg/dL (6-20); CALCIUM 10.2 mg/dL (8.5-10.3); CARBON DIOXIDE - CO2 27 mmol/L (21-32); CHLORIDE 100 mmol/L (101-111); CHOL/HDL RATIO 6.9 (<4.4); CHOLESTEROL 302 mg/dL; CREATININE 0.6 mg/dL (0.4-1.0); GLUCOSE 124 mg/dL (70-100); HDL CHOLESTEROL 44 mg/dL; LDL CHOLESTEROL,CALCULATED 211 mg/dL; LDL/HDL RATIO 4.8 (<4.4); SODIUM 137 mmol/L (135-145); TOTAL PROTEIN 7.7 g/dL (6.7-8.2); VLDL CHOLESTEROL 47 mg/dL
[2020-04-25 18:33] LABS: FREE T3 3.21 pg/mL (2.5-3.9)
[2020-04-25 18:34] LABS: THYROID STIMULATING HORMONE 0.36 uIU/mL (0.34-5.60)
[2020-04-25 18:35] LABS: FREE T4 (FREE THYROXINE) 1.06 ng/dL (0.58-1.64)
[2020-04-25 19:41] LABS: CRP - C-REACTIVE PROTEIN < 1.0 mg/dL (0-1.0)
[2020-04-25 19:51] LABS: HEMOGLOBIN A1c% 7.4 % (4.27-6.07)
== END 2020-04-25 23:59 | disposition home or self-care (01) ==
LOC: LAB.WCP 08:00
PROVIDERS: ATTEND Family Medicine
DX: E11.9 Type 2 diabetes mellitus without complications (principal); R03.0 Elevated blood-pressure reading, without diagnosis of hypertension; M79.7 Fibromyalgia; M25.561 Pain in right knee; Z79.891 Long term (current) use of opiate analgesic; F31.81 Bipolar II disorder; F41.9 Anxiety disorder, unspecified; G47.30 Sleep apnea, unspecified; Z86.79 Personal history of other diseases of the circulatory system
CPT/HCPCS: 36415; 80053; 80061; 83036; 83721; 84439; 84443; 84481; 85025; 85651; 86140

== ENCOUNTER 2020-05-07 12:04 | Outpatient (CLI) | payer MEDICARE, MEDICAID | END 2020-05-07 12:05 | disposition critical access hospital (66) | LOC: EMS 12:04 | PROVIDERS: ATTEND Surgery | DX: M25.551 Pain in right hip (principal) | CPT/HCPCS: A0425; A0429 ==

== ENCOUNTER 2020-05-07 12:22 | Emergency (ER) | payer MEDICARE, MEDICAID ==
[2020-05-07] MEDS ORDERED: HYDROmorphone 1 MG/ML CARPUJECT IVP STA (12:35)
--- NOTE | 2020-05-07 12:40 | ED Physician Documentation ---
History of Present Illness - Stated complaint Stated Complaint: GLF - Additonal information Additional information: 54-year-old female presents to the emergency department for evaluation of right hip and low back pain. She reports a ground-level fall about 5 days ago which her right knee gave out and she struck her head on the bathtub. She was able to get up but since the fall has had persistent pain in the right hip and low back and has been utilizing her walker more than before. 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 She is a diabetic and reports better control over the last few months with an A1c of 7.2. She denies losing consciousness after striking her head but states that pain in the hip has not improved therefore she presents today via EMS She does have a history of spinal stenosis and she has undergone lumbar fixation in the past. She does report at baseline that her posterior right calf is numb. Review of Systems Constitutional: denies: Fever, Chills Eyes: reports: Reviewed and negative Ears: reports: Reviewed and negative Nose: reports: Reviewed and negative Throat: reports: Reviewed and negative Cardiac: reports: Reviewed and negative Respiratory: reports: Reviewed and negative GI: reports: Reviewed and negative : reports: Reviewed and negative Skin: denies: Rash Musculoskeletal: reports: Back pain, Joint pain (right hip) Neurologic: reports: Numbness (right calf). denies: Generalized weakness PD PAST MEDICAL HISTORY - Past Medical History Cardiovascular: Hypertension Respiratory: COPD, Pneumonia Neuro: None Endocrine/Autoimmune: Type 2 diabetes, HyPOthyroidism GI: Ulcers BIG DATA ANALYTICS LEAD: None : Kidney stones HEENT: None Psych: Depression, Anxiety, Bipolar disorder Musculoskeletal: Fibromyalgia, Chronic back pain Derm: None - Past Surgical History Past Surgical History: Yes General: Cholecystectomy, Appendectomy Ortho: Spine surgery /BIG DATA ANALYTICS LEAD: section, Tubal ligation HEENT: Other - Present Medications Home Medications: Ambulatory Orders Medication Instructions Recorded Confirmed Levothyroxine Sodium [Levoxyl] 200 mcg PO DAILY 06/16/13 02/08/19 Syring-Needl,Disp,Insul,0.3 ml 1 each MC DAILY #30 disp.syrin 09/05/14 05/29/17 [Insulin Syringe] Insulin Glargine [Lantus] 40 unit SUBQ QPM 09/26/16 02/08/19 Ipratropium/Albuterol [Combivent 1 puffs IH Q6H PRN #1 aer.w.adap 09/26/16 02/08/19 Respimat] Insulin Lispro [Humalog] 14 unit SUBQ AC 05/27/17 02/08/19 Alprazolam [Xanax] 1 mg PO TID 02/08/18 02/08/19 Docusate Sodium 100 mg PO DAILY #30 capsule 10/11/18 02/08/19 Duloxetine HCl [Cymbalta] 60 mg PO BID 02/08/19 02/08/19 Gabapentin 300 mg PO TID 02/08/19 02/08/19 Morphine Sulfate 7.5 - 15 mg PO BID PRN 02/08/19 02/08/19 Morphine Sulfate ER [Ms Contin] 30 mg PO DAILY 02/08/19 02/08/19 Quetiapine Fumarate 600 mg PO QPM 02/08/19 02/08/19 Tizanidine HCl 4 mg PO TID PRN 02/08/19 02/08/19 Albuterol 2.5 mg INH Q4H PRN 12/08/19 12/08/19 Albuterol Sulfate [Proair Hfa 1 - 2 puffs INH Q4H PRN 12/08/19 12/08/19 Inhaler] Baclofen 10 mg PO TID 12/08/19 12/08/19 Magnesium Hydroxide [Milk of 30 ml PO BID PRN 12/08/19 12/08/19 Magnesia] Oxycodone HCl/Acetaminophen 1 - 2 each PO Q6H PRN #14 tablet 05/07/20 [Percocet 5-325 mg Tablet] - Allergies Allergies/Adverse Reactions: Allergies Allergy/AdvReac Type Severity Reaction Status Date / Time No Known Drug Allergies Allergy Verified 05/07/20 12:40 - Social History Does the pt smoke?: No Smoking Status: Current some day smoker Does the pt drink ETOH?: No Does the pt have substance abuse?: No - Immunizations Immunizations are current?: Yes - POLST Patient has POLST: No PD ED PE EXPANDED - General General: Alert, In Pain - Cardiac Cardiac: Regular Rate, Regular Rhythm, Radial strong equal, Femoral strong equal, Pedal strong equal, Cap refill < 2 sec - Respiratory Respiratory: Clear to ausultation chin. No: Distress, Labored - Abdomen Abdomen: Normal Bowel sounds. No: Tender to palpation - Back Back: Soft tissue tenderness (Tenderness across the lower lumbar spine. Nonfocal. No spinous process tenderness. Midline vertical incision well- healed.) - Extremities Extremities: Tenderness, Right hip (Patient is able to flex the right leg at hip and knee though painful. No leg shortening. Leg is not rotated. Tenderness with passive range of motion in the right hip). No: Deformity Results - Vitals Vitals: Vital Signs - 24 hr 05/07/20 05/07/20 05/07/20 12:23 13:11 13:43 Temperature 36.8 C Heart Rate 93 85 82 Respiratory 20 16 16 Rate Blood Pressure 134/70 H 123/55 L 110/71 O2 Saturation 97 95 94 05/07/20 05/07/20 14:35 15:10 Temperature 36.7 C Heart Rate 88 83 Respiratory 18 16 Rate Blood Pressure 118/100 H 114/56 L O2 Saturation 96 93 Oxygen O2 Source Room air - Rads (name of study) right hip Radiology: Final report received (no fx) pelvis Radiology: Final report received (no fx) lumbar Radiology: Final report received (no fx) CT hip right Radiology: Final report received (No fracture) PD MEDICAL DECISION MAKING - ED course Complexity details: reviewed results, re-evaluated patient, considered differential, d/w patient ED course: 54-year-old female presents to the emergency department for low back and right hip pain after fall 5 days ago. Have a history of degenerative joint disease in both her knees and is pending knee replacement. Typically at home she utilizes a walker to ambulate. Over the last 5 days she has been using a walker to get out of bed though it has been very painful and she is required assistance from her partner at home. X-ray of the lumbar hip and pelvis did not show any obvious fracture. However despite Dilaudid patient continued to have quite a bit of pain. She was able to get up with 2 people assisting. Therefore I did proceed with a CT of the hip/pelvis to rule out an occult fracture. No obvious fracture seen on imaging. Patient felt improved after a second dose of Dilaudid. She will be discharged home with a prescription for Percocet. Advise close follow- up with her primary care provider. I did encourage her to be as mobile as possible at all times with a walker. Emergent return precautions were discussed Departure - Departure Disposition: 01 Home, Self Care Clinical Impression: Hip pain, right Fall Qualifiers: Encounter type: initial encounter Qualified Code(s): W19.XXXA - Unspecified fall, initial encounter Low back pain Qualifiers: Chronicity: chronic Back pain laterality: right Sciatica presence: without sciatica Qualified Code(s): M54.5 - Low back pain; G89.29 - Other chronic pain Condition: Stable Record reviewed to determine appropriate education?: Yes Instructions: ED Back Care Tips Follow-Up: Hugo Wahl MD [Primary Care Provider] - Prescriptions: Oxycodone HCl/Acetaminophen [Percocet 5-325 mg Tablet] 1 - 2 each PO Q6H PRN #14 tablet PRN Reason: pain Comments: Katia I hope that you are feeling better after your fall. The x-rays of your lumbar spine, hip and pelvis do not show any acute fractures. We did also proceed to do a CAT scan of the hip that showed no broken bones. I would like you to continue to be up and is mobile as possible at home using your walker always. I have prescribed a very limited number of Percocet for severe pain only. Please try taking ibuprofen with food for discomfort. Schedule an appointment with your primary care provider as soon as you are able to. If you have any weakness please return to the ER
[2020-05-07] MEDS: HYDROmorphone 2 MG/ML VIAL IM STA (13:08)
--- NOTE | 2020-05-07 13:32 | XRAY Report ---
PROCEDURE: Hip w/Pelvis 2-3V RT INDICATIONS: GLF 5 days ago; r/o fx TECHNIQUE: AP view of the pelvis and crosstable lateral view of the right hip. COMPARISON: None. FINDINGS: Bones: Evaluation is mildly compromised by patient body habitus and overlying soft tissues. No acute fractures or dislocations. Pelvic ring appears intact. No suspicious bony lesions. Soft tissues: The visualized bowel gas pattern is normal. No suspicious soft tissue calcifications. IMPRESSION: No acute osseous abnormality. If symptoms persist with conservative management or if ther e is continued clinical concern, further evaluation with CT or MRI may be obtained. Reviewed by: Raghavendra Arellano MD on 05/07/2020 1:30 PM PST Approved by: Raghavendra Arellano MD on 05/07/2020 1:30 PM PST Station ID: [id number]
--- NOTE | 2020-05-07 13:33 | XRAY Report ---
PROCEDURE: Femur 2V RT INDICATIONS: fall 5 days ago TECHNIQUE: 3 views of the femur were acquired. COMPARISON: None. FINDINGS: Bones: No acute fractures or dislocations. No suspicious bony lesions. Soft tissues: No suspicious soft tissue calcifications or masses. IMPRESSION: No acute osseous abnormality. If symptoms persist with conservative management or if there is continu ed clinical concern, further evaluation with CT or MRI may be obtained. Reviewed by: Raghavendra Arellano MD on 05/07/2020 1:31 PM [facility] Approved by: Raghavendra Arellano MD on 05/07/2020 1:31 PM PST Station ID: [id number]
--- NOTE | 2020-05-07 13:36 | XRAY Report ---
PROCEDURE: Lumbar Spine 2 View INDICATIONS: r/o acute fx TECHNIQUE: 2 views of the lumbar spine were acquired. COMPARISON: CT abdomen/pelvis 02/07/2019 FINDINGS: Bones: Evaluation is mildly compromised by patient body habitus and overlying soft tissues. 5 non-ri b-bearing vertebrae are present. There is normal bony alignment. No vertebral body compression frac tures. No suspicious bony lesions. Mild multilevel degenerative changes are seen that are now well evaluated. Soft tissues: Overlying bowel gas pattern is normal. No suspicious soft tissue calcifications. Chol ecystectomy clips are noted in the right upper quadrant. IMPRESSION: No acute osseous abnormality. If symptoms persist with conservative management or if the re is continued clinical concern, further evaluation with CT or MRI may be obtained. Reviewed by: Raghavendra Arellano MD on 05/07/2020 1:34 PM PST Approved by: Raghavendra Arellano MD on 05/07/2020 1:34 PM PST Station ID: [id number]
[2020-05-07] MEDS: HYDROmorphone 1 MG/ML CARPUJECT IM STA (14:34)
[2020-05-07 15:11] VITALS: BP 114/56
--- NOTE | 2020-05-07 15:13 | CT Report ---
PROCEDURE: LOWER EXTREMITY WO - RT INDICATIONS: r/o hip/pelvic fx; TECHNIQUE: Noncontrast 3 mm axial sections acquired of the pelvis and right hip, with coronal and sagittal refor mats. COMPARISON: Hip radiographs performed earlier the same day. FINDINGS: Image quality: Excellent. Bones: No acute fracture or dislocation. The pelvic bones are intact. Mild degenerative spurring is seen at the lateral aspect of the acetabulum. Chronic cystic changes are seen at the right femoral ne ck. Small enthesophyte is seen at the greater trochanter. Mild facet hypertrophy is seen in the inclu ded lower lumbar spine. Soft tissues: No focal soft tissue edema or hematoma is seen. There is mild fatty infiltration of th e musculature surrounding the hips. The articular cartilages, labrum, ligaments, and tendons are not well evaluated with CT. The included portions of the pelvis demonstrate no acute abnormality. IMPRESSION: No acute pelvic or proximal femoral fracture. Mild degenerative changes in the right hip and included lumbar spine. Reviewed by: Raghavendra Arellano MD on 05/07/2020 3:12 PM PST Approved by: Raghavendra Arellano MD on 05/07/2020 3:12 PM PST Station ID: [id number]
== END 2020-05-07 15:51 | disposition home or self-care (01) ==
LOC: EDUNIT# → ED 12:22
DX: M54.5 Low back pain (principal); G89.29 Other chronic pain; W18.30XA Fall on same level, unspecified, initial encounter; Y92.002 Bathroom of unspecified non-institutional (private) residence as the place of occurrence of the external cause; M17.0 Bilateral primary osteoarthritis of knee; E11.9 Type 2 diabetes mellitus without complications; I10 Essential (primary) hypertension; Z79.4 Long term (current) use of insulin
CPT/HCPCS: 72100; 73502; 73552; 73700; 96372; 99284; J1170

== ENCOUNTER 2020-05-10 15:28 | Emergency (ER) | payer MEDICARE, MEDICAID ==
[2020-05-10] MEDS ORDERED: ASPIRIN CHEW 81 MG TABLET PO STA (15:47)
[2020-05-10] MEDS ORDERED: HYDROmorphone 1 MG/ML CARPUJECT IVP STA (15:47)
--- NOTE | 2020-05-10 15:49 | ED Physician Documentation ---
PD HPI CHEST PAIN - Stated complaint Stated Complaint: CP/SOA/NAUSEA/FEET SWOLLEN - Chief complaint Chief Complaint: Cardiac - History obtained from History obtained from: Patient - Additional information Additional information: 54-year-old woman with history of diabetes and tobacco abuse had a slip and fall in her bathroom 8 days ago, persistent pain to the right shoulder. The last few days she has felt lethargic and listless and today all day has had substernal chest pressure and her feet are swelling. She is short of breath without cough. Review of Systems Ten Systems: 10 systems reviewed and negative Constitutional: reports: Reviewed and negative Nose: denies: Rhinorrhea / runny nose, Congestion Throat: denies: Dental pain / toothache, Sore throat Cardiac: reports: Chest pain / pressure, Pedal edema. denies: Palpitations, Calf pain Respiratory: reports: Dyspnea. denies: Cough, Hemoptysis, Wheezing GI: reports: Reviewed and negative PD PAST MEDICAL HISTORY - Past Medical History Cardiovascular: Hypertension Respiratory: COPD, Pneumonia Neuro: None Endocrine/Autoimmune: Type 2 diabetes, HyPOthyroidism GI: Ulcers STRIP FEEDER: None : Kidney stones HEENT: None Psych: Depression, Anxiety, Bipolar disorder Musculoskeletal: Fibromyalgia, Chronic back pain Derm: None - Past Surgical History Past Surgical History: Yes General: Cholecystectomy, Appendectomy Ortho: Spine surgery /STRIP FEEDER: section, Tubal ligation HEENT: Other - Present Medications Home Medications: Ambulatory Orders Medication Instructions Recorded Confirmed Levothyroxine Sodium [Levoxyl] 200 mcg PO DAILY 06/16/13 02/08/19 Syring-Needl,Disp,Insul,0.3 ml 1 each MC DAILY #30 disp.syrin 09/05/14 05/29/17 [Insulin Syringe] Insulin Glargine [Lantus] 40 unit SUBQ QPM 09/26/16 02/08/19 Ipratropium/Albuterol [Combivent 1 puffs IH Q6H PRN #1 aer.w.adap 09/26/16 02/08/19 Respimat] Insulin Lispro [Humalog] 14 unit SUBQ AC 05/27/17 02/08/19 Alprazolam [Xanax] 1 mg PO TID 02/08/18 02/08/19 Docusate Sodium 100 mg PO DAILY #30 capsule 10/11/18 02/08/19 Duloxetine HCl [Cymbalta] 60 mg PO BID 02/08/19 02/08/19 Gabapentin 300 mg PO TID 02/08/19 02/08/19 Morphine Sulfate 7.5 - 15 mg PO BID PRN 02/08/19 02/08/19 Morphine Sulfate ER [Ms Contin] 30 mg PO DAILY 02/08/19 02/08/19 Quetiapine Fumarate 600 mg PO QPM 02/08/19 02/08/19 Tizanidine HCl 4 mg PO TID PRN 02/08/19 02/08/19 Albuterol 2.5 mg INH Q4H PRN 12/08/19 12/08/19 Albuterol Sulfate [Proair Hfa 1 - 2 puffs INH Q4H PRN 12/08/19 12/08/19 Inhaler] Baclofen 10 mg PO TID 12/08/19 12/08/19 Magnesium Hydroxide [Milk of 30 ml PO BID PRN 12/08/19 12/08/19 Magnesia] Oxycodone HCl/Acetaminophen 1 - 2 each PO Q6H PRN #14 tablet 05/07/20 [Percocet 5-325 mg Tablet] Furosemide [Lasix] 20 mg PO DAILY #7 tablet 05/10/20 Potassium Chloride 10 meq PO DAILY #7 tablet.er 05/10/20 predniSONE [Deltasone] 20 mg PO [id number] #21 tab 05/10/20 - Allergies Allergies/Adverse Reactions: Allergies Allergy/AdvReac Type Severity Reaction Status Date / Time No Known Drug Allergies Allergy Verified 05/10/20 15:31 - Social History Does the pt smoke?: No Smoking Status: Current some day smoker Does the pt drink ETOH?: No Does the pt have substance abuse?: No - Immunizations Immunizations are current?: Yes - POLST Patient has POLST: No PD ED PE NORMAL - Vitals Vital signs reviewed: Yes - General General: Alert and oriented X 3, No acute distress - HEENT HEENT: PERRL, EOMI - Neck Neck: Supple, no meningeal sign, No bony TTP - Cardiac Cardiac: RRR, No murmur, Other (TTP to sternum) - Respiratory Respiratory: No respiratory distress, Clear bilaterally - Abdomen Abdomen: Soft, Non tender - Back Back: No CVA TTP, No spinal TTP - Derm Derm: Normal color, Warm and dry - Extremities Extremities: No calf tenderness / cord, Other (Mild B pedal zohaib) - Neuro Neuro: Alert and oriented X 3, Normal speech Results - Vitals Vitals: Vital Signs - 24 hr 05/10/20 05/10/20 05/10/20 15:31 16:05 16:30 Temperature 37.3 C Heart Rate 93 91 85 Respiratory 22 16 17 Rate Blood Pressure 138/88 H 148/101 H O2 Saturation 94 96 95 05/10/20 05/10/20 05/10/20 16:41 17:00 17:30 Temperature 36.8 C Heart Rate 85 83 Respiratory 15 15 Rate Blood Pressure 151/64 H 115/63 O2 Saturation 96 95 05/10/20 18:30 Temperature Heart Rate 82 Respiratory 12 Rate Blood Pressure 115/64 O2 Saturation 93 Oxygen O2 Source Room air - EKG (time done) 1534 Rate: Rate (enter#) (95) Rhythm: NSR [place]: Normal QRS: Low voltage Ischemia: Normal ST segments Computer interpretation: Agree with computer - Labs Labs: Laboratory Tests 05/10/20 05/10/20 05/10/20 15:50 15:50 15:50 WBC 10.0 RBC 4.36 Hgb 12.7 Hct 38.6 MCV 88.5 MCH 29.1 MCHC 32.9 RDW 15.0 Plt Count 394 MPV 8.6 Neut # (Auto) 6.5 Lymph # (Auto) 2.4 [place] # (Auto) 0.8 Eos # (Auto) 0.1 Baso # (Auto) 0.1 Absolute Nucleated RBC 0.00 Nucleated RBC % 0.0 D-Dimer Sodium 135 Potassium 3.9 Chloride 97 L Carbon Dioxide 31 Anion Gap 7.0 BUN 13 Creatinine 0.7 Estimated GFR (MDRD) 87 L Glucose 66 L Calcium 9.3 Total Bilirubin < 0.2 L AST 29 ALT 42 Alkaline Phosphatase 134 H Troponin I High Sens 5.9 B-Natriuretic Peptide Total Protein 7.5 Albumin 3.7 Globulin 3.8 Albumin/Globulin Ratio 1.0 Lipase 59 H 05/10/20 05/10/20 15:50 15:50 WBC RBC Hgb Hct MCV MCH MCHC RDW Plt Count MPV Neut # (Auto) Lymph # (Auto) [place] # (Auto) Eos # (Auto) Baso # (Auto) Absolute Nucleated RBC Nucleated RBC % D-Dimer 348.5 H Sodium Potassium Chloride Carbon Dioxide Anion Gap BUN Creatinine Estimated GFR (MDRD) Glucose Calcium Total Bilirubin AST ALT Alkaline Phosphatase Troponin I High Sens B-Natriuretic Peptide 50 Total Protein Albumin Globulin Albumin/Globulin Ratio Lipase - Rads (name of study) 1v chest XR and R shoulder XR Radiology: EMP read contemporaneously (OA in R shoulder, nad) CTA Chest Radiology: EMP read contemporaneously (Abnormal density in the right breast, atelectasis, otherwise negative.) PD MEDICAL DECISION MAKING - ED course ED course: 54-year-old woman with history of tobacco abuse presents with shortness of breath, shoulder pain after a fall and substernal chest pressure, no evidence of ACS. D-dimer was positive but CT angiography of the chest was negative except for incidental findings. She was wheezing, may benefit from some steroids. Lasix for the mild pedal edema. Discussed need for follow-up mammogram, she has never had one. Departure - Departure Disposition: Home, Self Care Clinical Impression: Atypical chest pain, Wheezing Dyspnea Qualifiers: Dyspnea type: dyspnea on exertion Qualified Code(s): R06.00 - Dyspnea, unspecified Condition: Good Record reviewed to determine appropriate education?: Yes Instructions: ED Chest Pain NonCardiac Prescriptions: predniSONE [Deltasone] 20 mg PO [id number] #21 tab Furosemide [Lasix] 20 mg PO DAILY #7 tablet Potassium Chloride 10 meq PO DAILY #7 tablet.er Comments: As discussed, there is an abnormal finding in your right breast necessitating mammography. Talk with your doctor about setting when up especially since you have never had 1. Return for new or worsening symptoms. Follow-up with your doctor, next available appointment. I am prescribing a diuretic to use as needed for the foot swelling, the diuretic takes potassium out of your system so anytime you take the diuretic, take a potassium supplement as well.
[2020-05-10 16:02] LABS: BASOPHILS # (AUTO) 0.1 10^3/uL (0.0-0.1); BASOPHILS % (AUTO) 0.5 %; EOSINOPHILS # (AUTO) 0.1 10^3/uL (0.0-0.7); EOSINOPHILS % (AUTO) 1.2 %; HGB - HEMOGLOBIN 12.7 g/dL (12.0-16.0); LYMPHOCYTES # (AUTO) 2.4 10^3/uL (1.5-3.5); LYMPHOCYTES % (AUTO) 23.5 %; MEAN CORPUSCULAR HEMOGLOBIN 29.1 pg (27.0-31.0); MEAN CORPUSCULAR HGB CONC 32.9 g/dL (32.0-36.0); MEAN CORPUSCULAR VOLUME 88.5 fL (81.0-99.0); MEAN PLATELET VOLUME 8.6 fL (7.9-10.8); MONOCYTES # (AUTO) 0.8 10^3/uL (0.0-1.0); MONOCYTES % (AUTO) 8.4 %; NEUTROPHILS # (AUTO) 6.5 10^3/uL (1.5-6.6); NEUTROPHILS % (AUTO) 64.8 %; PLT - PLATELET COUNT 394 10^3/uL (130-450); RED BLOOD COUNT 4.36 10^6/uL (4.20-5.40)
[2020-05-10 16:15] LABS: ALBUMIN 3.7 g/dL (3.2-5.5); ALKALINE PHOSPHATASE 134 IU/L (42-121); ALT ALANINE AMINOTRANSFERASE 42 IU/L (10-60); AST ASPARTATE AMINOTRANSFERASE 29 IU/L (10-42); BILIRUBIN,TOTAL < 0.2 mg/dL (0.2-1.0); BUN - BLOOD UREA NITROGEN 13 mg/dL (6-20); CALCIUM 9.3 mg/dL (8.5-10.3); CARBON DIOXIDE - CO2 31 mmol/L (21-32); CHLORIDE 97 mmol/L (101-111); CREATININE 0.7 mg/dL (0.4-1.0); GLUCOSE 66 mg/dL (70-100); LIPASE 59 U/L (22-51); SODIUM 135 mmol/L (135-145); TOTAL PROTEIN 7.5 g/dL (6.7-8.2)
--- NOTE | 2020-05-10 16:16 | XRAY Report ---
PROCEDURE: Shoulder 3 View RT INDICATIONS: shoulder inj TECHNIQUE: 3 views of the shoulder were acquired. COMPARISON: None. FINDINGS: Bones: No fractures or dislocations. Moderate acromioclavicular joint and glenohumeral joint osteop hytic changes are seen. No suspicious bony lesions. Visualized ribs appear intact. Soft tissues: Small calcification adjacent to greater tuberosity of humeral head is seen suggestive o f calcific tendinitis.. IMPRESSION: No acute right shoulder fracture or dislocation. 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 Reviewed by: Jesus Horton MD on 05/10/2020 4:14 PM PST Approved by: Jesus Horton MD on 05/10/2020 4:14 PM PST Station ID: [id number]
--- NOTE | 2020-05-10 16:17 | XRAY Report ---
PROCEDURE: Chest 1 View X-Ray INDICATIONS: Chest pain TECHNIQUE: One view of the chest was acquired. COMPARISON: 11/05/2016 FINDINGS: Surgical changes and devices: Fusion hardware in visualized lower cervical spine is again seen. Lungs and pleura: No pleural effusions or pneumothorax. Lungs are clear. Mediastinum: Mediastinal contours appear normal. Heart size is enlarged. Bones and chest wall: No suspicious bony lesions. Overlying soft tissues appear unremarkable. IMPRESSION: No acute cardiopulmonary pathology. Reviewed by: Jesus Horton MD on 05/10/2020 4:16 PM PST Approved by: Jesus Horton MD on 05/10/2020 4:16 PM PST Station ID: [id number]
[2020-05-10] MEDS ORDERED: KETOROLAC 30 MG/ML VIAL IVP STA (16:50)
[2020-05-10] MEDS ORDERED: MORPHINE 2 MG/ML CARPUJECT IVP STA (16:50)
[2020-05-10] MEDS ORDERED: IOVERSOL 320 100 ML VIAL IVP ONE (18:26)
--- NOTE | 2020-05-10 18:59 | CT Report ---
PROCEDURE: ANGIO CHEST W/WO INDICATIONS: Chest pain/dyspnea, PE protocol CONTRAST: IV CONTRAST: Optiray 320 ml: 80 PO CONTRAST: *NO PO CONTRAST TECHNIQUE: After the administration of intravenous contrast, 2 mm thick sections acquired from the pulmonary api piter to the posterior costophrenic angles. 3-dimensional maximum intensity projection (MIP) coronal a nd sagittal reformats were then acquired through the thorax. For radiation dose reduction, the follow ing was used: automated exposure control, adjustment of mA and/or kV according to patient size. COMPARISON: CT pulmonary angiogram 10/11/2014. Lung bases on CT abdomen and pelvis 02/07/2019. FINDINGS: Image quality: Excellent. Pulmonary arteries: Pulmonary arteries are normal in size, and demonstrate no intraluminal filling d efects to suggest central pulmonary embolism. Lungs and pleura: Right upper lobe pulmonary nodule measuring 0.6 cm, (74). Minimal patchy and subp leural ground glass opacity. Mild streaky opacity in the left lung base. No pleural effusions or pneu mothorax. Central and peripheral airways are patent. Mediastinum: Heart size is normal, without pericardial effusion. No mediastinal or hilar adenopathy . Thoracic aorta is normal in caliber and enhancement. Esophagus is normal in caliber, without hiat al hernia. Bones and chest wall: No suspicious bony lesions. ACDF. Ribs and thoracic spine appear intact throug hout. Small calcified left thyroid nodule. No axillary or supraclavicular adenopathy. Small right b reast nodule with subtle rim calcification measuring 2.8 cm, (5/46). There is an area of apparent fat necrosis in this region on the CT from 2015. Adjacent dystrophic calcification. Abdomen: Visualized upper abdominal solid organs appear normal in the early arterial phase of enhanc ement. IMPRESSION: 1. No pulmonary embolism. 2. Mild patchy and subpleural groundglass opacity. Favor atelectasis over infectious/inflammatory fany ology. 3. Small nodular density in the right breast. This may represent an area of fat necrosis but is incre ased in density compared to the prior CT from 2015. -Recommend diagnostic mammogram if not recently performed. 4. No pleural effusion. Reviewed by: Toi Snell MD on 05/10/2020 6:58 PM PST Approved by: Toi Snell MD on 05/10/2020 6:58 PM PST Station ID: [id number]
[2020-05-10] MEDS ORDERED: POTASSIUM CHLORIDE 20 MEQ TABLET PO STA (19:04)
[2020-05-10] MEDS ORDERED: FUROSEMIDE 20 MG TABLET PO STA (19:04)
[2020-05-10] MEDS ORDERED: predniSONE 20 MG TABLET PO STA (19:04)
[2020-05-10 19:35] VITALS: BP 167/100
== END 2020-05-10 19:34 | disposition home or self-care (01) ==
LOC: ED 15:28
DX: M25.511 Pain in right shoulder (principal); W01.0XXA Fall on same level from slipping, tripping and stumbling without subsequent striking against object, initial encounter; Y92.002 Bathroom of unspecified non-institutional (private) residence as the place of occurrence of the external cause; R07.89 Other chest pain; R06.2 Wheezing; R06.00 Dyspnea, unspecified; I10 Essential (primary) hypertension; E11.9 Type 2 diabetes mellitus without complications; Z79.4 Long term (current) use of insulin; Z72.0 Tobacco use; R60.9 Edema, unspecified
CPT/HCPCS: 36415; 71045; 71275; 73030; 80053; 83690; 83880; 84484; 85025; 85379; 93005; 96374; 96375; 99284; 99285; A9270; J1170; J7512; Q9967

== ENCOUNTER 2020-05-31 11:11 | Outpatient (CLI) | payer MEDICARE, MEDICAID | END 2020-05-31 11:12 | disposition critical access hospital (66) | LOC: EMS 11:11 | PROVIDERS: ATTEND Surgery | DX: M54.5 Low back pain (principal); R10.30 Lower abdominal pain, unspecified; R11.0 Nausea; R42 Dizziness and giddiness; R68.83 Chills (without fever) | CPT/HCPCS: A0425; A0427 ==

== ENCOUNTER 2020-05-31 11:28 | Emergency (ER) | payer MEDICARE, MEDICAID ==
[2020-05-31] MEDS ORDERED: MORPHINE 10 MG/ML VIAL IVP STA (12:14)
--- NOTE | 2020-05-31 12:17 | ED Physician Documentation ---
PD HPI ABD PAIN - Stated complaint Stated Complaint: BACK PX - Chief complaint Chief Complaint: Abd Pain - History obtained from History obtained from: Patient - Additional information Additional information: 54-year-old woman with chronic pain, diabetes, on long-acting morphine twice a day 30 mg. No breakthrough meds. She has 4 days of severe left low back pain radiating to the left pelvis with tingling urination. Pain gets worse both with movement and with urination. She has some chills but no measured fevers. She is nauseous. Pain is burning in description and she feels numb to the left low back. No numbness in the leg. No saddle anesthesia. Review of Systems Constitutional: reports: Reviewed and negative Eyes: reports: Reviewed and negative Ears: reports: Reviewed and negative Nose: reports: Reviewed and negative Throat: reports: Reviewed and negative Cardiac: reports: Reviewed and negative Respiratory: reports: Reviewed and negative PD PAST MEDICAL HISTORY - Past Medical History Cardiovascular: Hypertension Respiratory: COPD, Pneumonia Neuro: None Endocrine/Autoimmune: Type 2 diabetes, HyPOthyroidism GI: Ulcers EDUCATIONAL TECHNICIAN: None : Kidney stones HEENT: None Psych: Depression, Anxiety, Bipolar disorder Musculoskeletal: Fibromyalgia, Chronic back pain Derm: None - Past Surgical History Past Surgical History: Yes General: Cholecystectomy, Appendectomy Ortho: Spine surgery /EDUCATIONAL TECHNICIAN: section, Tubal ligation HEENT: Other - Present Medications Home Medications: Ambulatory Orders Medication Instructions Recorded Confirmed Levothyroxine Sodium [Levoxyl] 200 mcg PO DAILY 06/16/13 02/08/19 Syring-Needl,Disp,Insul,0.3 ml 1 each MC DAILY #30 disp.syrin 09/05/14 05/29/17 [Insulin Syringe] Insulin Glargine [Lantus] 40 unit SUBQ QPM 09/26/16 02/08/19 Ipratropium/Albuterol [Combivent 1 puffs IH Q6H PRN #1 aer.w.adap 09/26/16 02/08/19 Respimat] Insulin Lispro [Humalog] 14 unit SUBQ AC 05/27/17 02/08/19 Alprazolam [Xanax] 1 mg PO TID 02/08/18 02/08/19 Docusate Sodium 100 mg PO DAILY #30 capsule 10/11/18 02/08/19 Duloxetine HCl [Cymbalta] 60 mg PO BID 02/08/19 02/08/19 Gabapentin 300 mg PO TID 02/08/19 02/08/19 Morphine Sulfate 7.5 - 15 mg PO BID PRN 02/08/19 02/08/19 Morphine Sulfate ER [Ms Contin] 30 mg PO DAILY 02/08/19 02/08/19 Quetiapine Fumarate 600 mg PO QPM 02/08/19 02/08/19 Tizanidine HCl 4 mg PO TID PRN 02/08/19 02/08/19 Albuterol 2.5 mg INH Q4H PRN 12/08/19 12/08/19 Albuterol Sulfate [Proair Hfa 1 - 2 puffs INH Q4H PRN 12/08/19 12/08/19 Inhaler] Baclofen 10 mg PO TID 12/08/19 12/08/19 Magnesium Hydroxide [Milk of 30 ml PO BID PRN 12/08/19 12/08/19 Magnesia] Magnesium Citrate [Citroma] 296 ml PO ONCE #1 solution 05/31/20 Meloxicam [Mobic] 7.5 mg PO BID PRN #10 tablet 05/31/20 - Allergies Allergies/Adverse Reactions: Allergies Allergy/AdvReac Type Severity Reaction Status Date / Time No Known Drug Allergies Allergy Verified 05/31/20 11:46 - Social History Does the pt smoke?: No Smoking Status: Never smoker Does the pt drink ETOH?: No Does the pt have substance abuse?: No - Immunizations Immunizations are current?: Yes - POLST Patient has POLST: No PD ED PE NORMAL - Vitals Vital signs reviewed: Yes - General General: Alert and oriented X 3, Other (in pain) - Abdomen Abdomen: Soft, Non tender - Back Back: Other (TTP to the left back, she is tender in the midline, over the musculature, and over the costovertebral angle, somewhat of a hypersensitive type of exam consistent with fibromyalgia history.) - Derm Derm: Normal color, Warm and dry - Extremities Extremities: No edema, No calf tenderness / cord - Neuro Neuro: Alert and oriented X 3, Normal speech Results - Vitals Vitals: Vital Signs - 24 hr 05/31/20 05/31/20 05/31/20 11:36 12:42 12:43 Temperature 37.3 C Heart Rate 97 94 Respiratory 22 18 Rate Blood Pressure 142/76 H 122/68 O2 Saturation 93 87 L 97 05/31/20 13:12 Temperature Heart Rate 97 Respiratory 18 Rate Blood Pressure 123/52 L O2 Saturation 93 Oxygen O2 Source Room air - Labs Labs: Laboratory Tests 05/31/20 05/31/20 05/31/20 12:09 12:23 12:23 WBC 12.1 H RBC 4.04 L Hgb 12.1 Hct 35.9 L MCV 88.9 MCH 30.0 MCHC 33.7 RDW 15.9 H Plt Count 301 MPV 8.6 Neut # (Auto) 9.7 H Lymph # (Auto) 1.4 [place] # (Auto) 0.8 Eos # (Auto) 0.0 Baso # (Auto) 0.0 Absolute Nucleated RBC 0.00 Nucleated RBC % 0.0 Sodium 136 Potassium 3.8 Chloride 94 L Carbon Dioxide 28 Anion Gap 14.0 H BUN 13 Creatinine 0.6 Estimated GFR (MDRD) 104 Glucose 222 H Calcium 9.4 Total Bilirubin 0.9 AST 155 H ALT 82 H Alkaline Phosphatase 161 H Total Protein 7.4 Albumin 3.6 Globulin 3.8 Albumin/Globulin Ratio 0.9 L Lipase 18 L Urine Color YELLOW Urine Clarity CLEAR Urine pH 6.0 Ur Specific [place] 1.025 Urine Protein NEGATIVE Urine Glucose (UA) NEGATIVE Urine Ketones NEGATIVE Urine Occult Blood NEGATIVE Urine Nitrite NEGATIVE Urine Bilirubin NEGATIVE Urine Urobilinogen 0.2 (NORMAL) Ur Leukocyte Esterase NEGATIVE Ur Microscopic Review NOT INDICATED Urine Culture Comments NOT INDICATED - Rads (name of study) CT A/P Radiology: EMP read contemporaneously (Resolution of previous colitis. Mild sigmoid diverticulosis. Large fecal load. Diminutive arteries) PD MEDICAL DECISION MAKING - ED course ED course: 54-year-old woman with chronic pain presents with left-sided abdominal and back pain. Examination most consistent with a musculoskeletal etiology. She was administered 10 mg of morphine IV and some Zofran as well. On reexamination she was sleeping comfortably, snoring, borderline pulse oximetry, but still complaining of severe pain and this was followed by Toradol. Labs were relatively unremarkable except for borderline leukocytosis, her liver enzymes are noted and it looks like this is kind of a chronic phenomenon although slightly worse than in the past but her pain is on the left side, no pain in the right upper quadrant. Her alkaline phosphatase is at her baseline basically. Urine is negative. Advanced imaging with a CT with IV contrast demonstrates large stool load, diminutive aorta peripheral arteries, diverticulosis. The only thing that should be causing acute abdominal pain/back pain on this study would be the constipation and for that she will be administered some magnesium citrate. She requested more pain medicine prior to discharge but discussed with her that since on reevaluation both times she had been snoring with no evidence of overt pain and borderline pulse oximetry's, recurrent dosing of narcotics was not appropriate or in her best interest especially in light of the large stool load. Departure - Departure Disposition: Home, Self Care Clinical Impression: Abdominal pain Chronic pain Qualifiers: Chronic pain type: chronic pain syndrome Qualified Code(s): G89.4 - Chronic pain syndrome Back pain Qualifiers: Back pain location: low back pain Chronicity: acute Back pain laterality: left Sciatica presence: without sciatica Qualified Code(s): M54.5 - Low back pain Constipation Qualifiers: Constipation type: drug induced constipation Qualified Code(s): K59.03 - Drug induced constipation Condition: Stable Record reviewed to determine appropriate education?: Yes Instructions: ED Abdominal Pain Unkn Cause, ED Constipation Prescriptions: Magnesium Citrate [Citroma] 296 ml PO ONCE #1 solution Meloxicam [Mobic] 7.5 mg PO BID PRN #10 tablet PRN Reason: Pain Comments: As discussed, CT imaging today demonstrates constipation, also hardening of the arteries. Imperative to exercise and to quit smoking to reverse that process. For the constipation the magnesium citrate should help. Also prescribing some nonnarcotic pain medication. Return if worsening or if new symptoms develop. Follow-up with your primary care physician, next available appointment.
[2020-05-31 12:30] LABS: BASOPHILS % (AUTO) 0.3 %; EOSINOPHILS % (AUTO) 0.3 %; HGB - HEMOGLOBIN 12.1 g/dL (12.0-16.0); LYMPHOCYTES # (AUTO) 1.4 10^3/uL (1.5-3.5); LYMPHOCYTES % (AUTO) 11.6 %; MEAN CORPUSCULAR HGB CONC 33.7 g/dL (32.0-36.0); MEAN CORPUSCULAR VOLUME 88.9 fL (81.0-99.0); MEAN PLATELET VOLUME 8.6 fL (7.9-10.8); MONOCYTES # (AUTO) 0.8 10^3/uL (0.0-1.0); MONOCYTES % (AUTO) 6.8 %; NEUTROPHILS # (AUTO) 9.7 10^3/uL (1.5-6.6); PLT - PLATELET COUNT 301 10^3/uL (130-450); RED BLOOD COUNT 4.04 10^6/uL (4.20-5.40); RED CELL DISTRIBUTION WIDTH 15.9 % (12.0-15.0); WHITE BLOOD COUNT 12.1 x10^3/uL (4.8-10.8)
[2020-05-31 12:34] LABS: BILIRUBIN,URINE NEGATIVE (NEGATIVE); GLUCOSE, URINE (UA) NEGATIVE (NEGATIVE); KETONES,URINE (UA) NEGATIVE (NEGATIVE); LEUKOCYTE ESTERASE, URINE NEGATIVE (NEGATIVE); NITRITE,URINE NEGATIVE (NEGATIVE); OCCULT BLOOD,URINE NEGATIVE (NEGATIVE); PROTEIN,URINE NEGATIVE (NEGATIVE); UROBILINOGEN,URINE 0.2 (NORMAL) E.U./dL (NORMAL)
[2020-05-31 12:35] LABS: CLARITY,URINE CLEAR (CLEAR)
[2020-05-31 12:40] LABS: ALBUMIN 3.6 g/dL (3.2-5.5); ALBUMIN/GLOBULIN RATIO 0.9 (1.0-2.2); BILIRUBIN,TOTAL 0.9 mg/dL (0.2-1.0); CALCIUM 9.4 mg/dL (8.5-10.3); CREATININE 0.6 mg/dL (0.4-1.0); TOTAL PROTEIN 7.4 g/dL (6.7-8.2)
[2020-05-31] MEDS ORDERED: IOVERSOL 320 100 ML VIAL IVP ONE ×2 (12:43→15:19)
[2020-05-31] MEDS ORDERED: KETOROLAC 30 MG/ML VIAL IVP STA (13:10)
[2020-05-31] MEDS ORDERED: ONDANSETRON 4 MG/2 ML VIAL IVP STA (13:26)
--- NOTE | 2020-05-31 13:30 | CT Report ---
PROCEDURE: Abdomen/Pelvis W INDICATIONS: L back/abd pain, IV only CONTRAST: IV CONTRAST: Optiray 320 ml: 100 PO CONTRAST: *NO PO CONTRAST TECHNIQUE: After the administration of IV contrast, 5 mm thick sections acquired from the diaphragms to the symp hysis. 5 mm thick coronal and sagittal reformats were acquired. For radiation dose reduction, the f ollowing was used: automated exposure control, adjustment of mA and/or kV according to patient size. COMPARISON: 02/07/2019. FINDINGS: Image quality: Excellent. ABDOMEN: Lung bases: Lung bases are clear. Heart size is normal. Solid organs: Liver and spleen are normal in size and enhancement. Gallbladder is surgically absent Biliary system is non dilated. Pancreas enhances normally. No adrenal nodules. Kidneys demonstra te normal size and enhancement, without hydronephrosis. Peritoneum and bowel: Bowel loops demonstrate normal wall thickness and caliber. No free fluid or a ir. Resolution of previous left-sided colitis. Large amount of fecal debris in the cecum and right c olon. Large amount of transverse colonic fecal debris as well. Mild sigmoid diverticulosis without ev idence of diverticulitis. Nodes and vessels: No retroperitoneal or mesenteric adenopathy by size criteria. Aorta and inferior vena cava are normal in size. The infrarenal abdominal aorta is somewhat diminutive and has atheros clerotic plaque. The common iliacs are somewhat diminutive as well with diffuse stenotic disease. The external iliacs and common femorals are diffusely diminutive. Miscellaneous: No ventral hernias. PELVIS: Genitourinary: Bladder wall thickness is normal. Miscellaneous: No inguinal hernias or adenopathy. Bones: No suspicious bony lesions. No vertebral body compression fractures. IMPRESSION: 1. No evidence of acute abdominal process. Resolution of previous colitis. 2. Mild sigmoid diverticulosis without evidence of diverticulitis. 3. Large fecal load. 4. Diminutive size of aorta and iliac arteries and common femoral arteries. Question: Does this patie nt have significant lifestyle limiting claudication? Reviewed by: Baron Johnson MD on 05/31/2020 1:28 PM PST Approved by: Baron Johnson MD on 05/31/2020 1:28 PM PST Station ID: [id number]
[2020-05-31 14:13] VITALS: BP 122/65
== END 2020-05-31 14:09 | disposition home or self-care (01) ==
LOC: EDUNIT# → ED 11:28
DX: M54.5 Low back pain (principal); G89.29 Other chronic pain; K59.03 Drug induced constipation; R10.9 Unspecified abdominal pain; I10 Essential (primary) hypertension; E11.9 Type 2 diabetes mellitus without complications
CPT/HCPCS: 36415; 74177; 80053; 81003; 83690; 85025; 96374; 96375; 99284; Q9967; 81001; 87086

== ENCOUNTER 2020-08-06 08:00 | Outpatient (CLI) | payer MEDICARE, MEDICAID ==
[2020-08-06 18:47] LABS: CALCIUM 9.9 mg/dL (8.5-10.3); CREATININE 0.8 mg/dL (0.4-1.0)
[2020-08-06 20:23] LABS: HEMOGLOBIN A1c% 6.9 % (4.27-6.07)
== END 2020-08-06 23:59 | disposition home or self-care (01) ==
LOC: LAB.WCP 08:00
PROVIDERS: ATTEND Family Medicine
DX: E11.9 Type 2 diabetes mellitus without complications (principal)
CPT/HCPCS: 36415; 80048; 83036

== ENCOUNTER 2020-08-07 10:37 | Outpatient (CLI) | payer MEDICARE, MEDICAID ==
--- NOTE | 2020-08-08 10:15 | Mammography Report ---
BILATERAL DIGITAL DIAGNOSTIC MAMMOGRAM 3D/2D: 08/07/2020 CLINICAL: Baseline exam. Right breast mass. Family history of breast cancer. No prior exams were available for comparison. Correlation is made to CTA of the chest 05/10/2020. There are scattered fibroglandular elements in both breasts. There is a benign 2.8 cm oval oil cyst with peripheral, coarse and dystrophic calcifications in the r ight breast at 11 o'clock posterior depth. This corresponds to the abnormality noted on CT scan. No other significant masses, calcifications, or other findings are seen in either breast. IMPRESSION: BENIGN Prominent benign oil cyst, possibly evidence of remote trauma corresponds to CT finding of concern. T here is no mammographic evidence of malignancy. Return to annual mammogram screening schedule is ivonne mmended. Findings and recommendations were conveyed to the patient at time of exam. This exam was interpreted at Station ID: [id number]. NOTE: For mammograms, a report in lay terms will be sent to the patient. Approximately 15% of breast malignancies will not be visualized mammographically. In the management of a palpable breast mass, a negative mammogram must not discourage biopsy of a clinically suspicious lesion. Electronically Signed By: Allison andrade/:08/07/2020 12:18:19 ACR BI-RADS Category 2: Benign Finding(s) 3342F PARENCHYMAL PATTERN: (A) - The breast(s) demonstrate(s) scattered fibroglandular densities. BI-RADS CATEGORY: (2) - 2 RECOMMENDATION: (ANNUAL) - Recommend routine annual screening mammography. [id number] return to screening LATERALITY: (B)
== END 2020-08-07 10:38 | disposition home or self-care (01) ==
LOC: DI 10:37
PROVIDERS: ATTEND Family Medicine
DX: N60.01 Solitary cyst of right breast (principal); Z80.3 Family history of malignant neoplasm of breast

== ENCOUNTER 2020-10-17 08:00 | Outpatient (CLI) | payer MEDICARE, MEDICAID ==
[2020-10-17 19:04] LABS: CREATININE 0.6 mg/dL (0.4-1.0); POTASSIUM 4.5 mmol/L (3.5-5.0)
[2020-10-17 19:22] LABS: BASOPHILS # (AUTO) 0.1 10^3/uL (0.0-0.1); BASOPHILS % (AUTO) 0.6 %; EOSINOPHILS # (AUTO) 0.1 10^3/uL (0.0-0.7); EOSINOPHILS % (AUTO) 1.3 %; HCT - HEMATOCRIT 43.7 % (37.0-47.0); HGB - HEMOGLOBIN 14.2 g/dL (12.0-16.0); LYMPHOCYTES # (AUTO) 2.4 10^3/uL (1.5-3.5); LYMPHOCYTES % (AUTO) 23.1 %; MEAN CORPUSCULAR HEMOGLOBIN 28.7 pg (27.0-31.0); MEAN CORPUSCULAR HGB CONC 32.5 g/dL (32.0-36.0); MEAN CORPUSCULAR VOLUME 88.3 fL (81.0-99.0); MEAN PLATELET VOLUME 9.5 fL (7.9-10.8); MONOCYTES # (AUTO) 0.9 10^3/uL (0.0-1.0); MONOCYTES % (AUTO) 8.6 %; NEUTROPHILS # (AUTO) 6.6 10^3/uL (1.5-6.6); NEUTROPHILS % (AUTO) 64.1 %; PLT - PLATELET COUNT 372 10^3/uL (130-450); RED BLOOD COUNT 4.95 10^6/uL (4.20-5.40); RED CELL DISTRIBUTION WIDTH 17.2 % (12.0-15.0); WHITE BLOOD COUNT 10.3 x10^3/uL (4.8-10.8)
[2020-10-17 20:06] LABS: ESTIMATED AVERAGE GLUCOSE 140 mg/dL (70-100); HEMOGLOBIN A1c% 6.5 % (4.27-6.07)
== END 2020-10-17 23:59 | disposition home or self-care (01) ==
LOC: LAB.WCP 08:00
PROVIDERS: ATTEND Orthopaedic Surgery
DX: Z01.812 Encounter for preprocedural laboratory examination (principal); R73.9 Hyperglycemia, unspecified
CPT/HCPCS: 36415; 80048; 83036; 85025

== ENCOUNTER 2021-04-04 14:06 | Outpatient (CLI) | payer MEDICARE, MEDICAID ==
[2021-04-04 18:11] LABS: BASOPHILS # (AUTO) 0.1 10^3/uL (0.0-0.1); BASOPHILS % (AUTO) 0.9 %; EOSINOPHILS # (AUTO) 0.1 10^3/uL (0.0-0.7); EOSINOPHILS % (AUTO) 1.3 %; HCT - HEMATOCRIT 44.2 % (37.0-47.0); HGB - HEMOGLOBIN 14.2 g/dL (12.0-16.0); LYMPHOCYTES % (AUTO) 32.9 %; MEAN CORPUSCULAR HEMOGLOBIN 28.3 pg (27.0-31.0); MEAN CORPUSCULAR HGB CONC 32.1 g/dL (32.0-36.0); MEAN CORPUSCULAR VOLUME 88.2 fL (81.0-99.0); MEAN PLATELET VOLUME 10.8 fL (7.9-10.8); MONOCYTES # (AUTO) 0.8 10^3/uL (0.0-1.0); MONOCYTES % (AUTO) 8.4 %; NEUTROPHILS % (AUTO) 55.2 %; PLT - PLATELET COUNT 308 10^3/uL (130-450); RED BLOOD COUNT 5.01 10^6/uL (4.20-5.40); RED CELL DISTRIBUTION WIDTH 17.1 % (12.0-15.0)
[2021-04-04 18:28] LABS: ALBUMIN/GLOBULIN RATIO 1.2 (1.0-2.2); BILIRUBIN,TOTAL 0.3 mg/dL (0.2-1.0); CALCIUM 9.6 mg/dL (8.5-10.3); CREATININE 0.7 mg/dL (0.4-1.0); POTASSIUM 4.2 mmol/L (3.5-5.0); TOTAL PROTEIN 7.4 g/dL (6.7-8.2)
[2021-04-04 21:01] LABS: ESTIMATED AVERAGE GLUCOSE 209 mg/dL (70-100); HEMOGLOBIN A1c% 8.9 % (4.27-6.07)
== END 2021-04-04 23:59 | disposition home or self-care (01) ==
LOC: LAB.WCP 14:06
PROVIDERS: ATTEND Family Medicine
DX: E11.43 Type 2 diabetes mellitus with diabetic autonomic (poly)neuropathy (principal); K21.9 Gastro-esophageal reflux disease without esophagitis; R11.2 Nausea with vomiting, unspecified; R03.0 Elevated blood-pressure reading, without diagnosis of hypertension
CPT/HCPCS: 36415; 80053; 83036; 85025

== ENCOUNTER 2021-11-08 10:20 | Outpatient (CLI) | payer MEDICARE, MEDICAID ==
[2021-11-08 19:42] LABS: CALCIUM 9.8 mg/dL (8.5-10.3); CREATININE 0.9 mg/dL (0.4-1.0)
[2021-11-08 20:01] LABS: MICROALBUM/CREATININE RATIO,UR 8.2 ug/mg (<30.0); MICROALBUMIN,URINE 1.1 mg/dL (0-300.0)
[2021-11-09 21:05] LABS: ESTIMATED AVERAGE GLUCOSE 246 mg/dL (70-100); HEMOGLOBIN A1c% 10.2 % (4.27-6.07)
== END 2021-11-08 10:21 | disposition home or self-care (01) ==
LOC: LAB.N 10:20
PROVIDERS: ATTEND Family Medicine
DX: E11.9 Type 2 diabetes mellitus without complications (principal)
CPT/HCPCS: 36415; 80048; 82043; 82570; 83036

== ENCOUNTER 2022-02-09 11:26 | Outpatient (CLI) | payer MEDICARE ==
[2022-02-09 18:02] LABS: BASOPHILS # (AUTO) 0.1 10^3/uL (0.0-0.1); BASOPHILS % (AUTO) 0.7 %; EOSINOPHILS # (AUTO) 0.1 10^3/uL (0.0-0.7); EOSINOPHILS % (AUTO) 1.5 %; HCT - HEMATOCRIT 43.9 % (37.0-47.0); HGB - HEMOGLOBIN 14.7 g/dL (12.0-16.0); LYMPHOCYTES # (AUTO) 1.9 10^3/uL (1.5-3.5); LYMPHOCYTES % (AUTO) 21.9 %; MEAN CORPUSCULAR HEMOGLOBIN 30.6 pg (27.0-31.0); MEAN CORPUSCULAR HGB CONC 33.5 g/dL (32.0-36.0); MEAN CORPUSCULAR VOLUME 91.5 fL (81.0-99.0); MEAN PLATELET VOLUME 12.1 fL (7.9-10.8); MONOCYTES # (AUTO) 0.8 10^3/uL (0.0-1.0); MONOCYTES % (AUTO) 8.7 %; NEUTROPHILS # (AUTO) 5.7 10^3/uL (1.5-6.6); NEUTROPHILS % (AUTO) 66.3 %; PLT - PLATELET COUNT 342 10^3/uL (130-450); RED CELL DISTRIBUTION WIDTH 13.7 % (12.0-15.0); WHITE BLOOD COUNT 8.7 x10^3/uL (4.8-10.8)
[2022-02-09 18:13] LABS: ALBUMIN 4.1 g/dL (3.2-5.5); ALBUMIN/GLOBULIN RATIO 1.2 (1.0-2.2); ALKALINE PHOSPHATASE 149 IU/L (42-121); ALT ALANINE AMINOTRANSFERASE 30 IU/L (10-60); AST ASPARTATE AMINOTRANSFERASE 21 IU/L (10-42); BILIRUBIN,TOTAL 0.5 mg/dL (0.2-1.0); BUN - BLOOD UREA NITROGEN 11 mg/dL (6-20); CALCIUM 9.9 mg/dL (8.5-10.3); CARBON DIOXIDE - CO2 30 mmol/L (21-32); CHLORIDE 94 mmol/L (101-111); CREATININE 0.7 mg/dL (0.4-1.0); GFR - MDRD 86 (>89); GLUCOSE 165 mg/dL (70-100); POTASSIUM 4.7 mmol/L (3.5-5.0); SODIUM 134 mmol/L (135-145); TOTAL PROTEIN 7.5 g/dL (6.7-8.2)
[2022-02-09 18:22] LABS: CREATININE,URINE 45.2 mg/dL; MICROALBUM/CREATININE RATIO,UR 4.4 ug/mg (<30.0); MICROALBUMIN,URINE 0.2 mg/dL (0-300.0)
[2022-02-09 18:28] LABS: FREE T3 5.1 pg/mL (2.5-3.9); THYROID STIMULATING HORMONE 0.28 uIU/mL (0.34-5.60)
[2022-02-09 18:29] LABS: FREE T4 (FREE THYROXINE) 1.09 ng/dL (0.58-1.64)
[2022-02-09 20:34] LABS: ESTIMATED AVERAGE GLUCOSE 232 mg/dL (70-100); HEMOGLOBIN A1c% 9.7 % (4.27-6.07)
[2022-02-10 09:38] LABS: CHOL/HDL RATIO 6.7 (<4.4); CHOLESTEROL 281 mg/dL; HDL CHOLESTEROL 42 mg/dL; LDL CHOLESTEROL,CALCULATED 198 mg/dL; LDL/HDL RATIO 4.7 (<4.4); TRIGLYCERIDES 204 mg/dL; VLDL CHOLESTEROL 41 mg/dL
== END 2022-02-09 11:27 | disposition home or self-care (01) ==
LOC: LAB.N 11:26
PROVIDERS: ATTEND Family Medicine
DX: E03.9 Hypothyroidism, unspecified (principal); R03.0 Elevated blood-pressure reading, without diagnosis of hypertension; F17.200 Nicotine dependence, unspecified, uncomplicated; E66.9 Obesity, unspecified; M54.30 Sciatica, unspecified side; M79.7 Fibromyalgia
CPT/HCPCS: 36415; 80053; 80061; 82043; 82570; 83036; 83721; 84439; 84443; 84481; 85025

== ENCOUNTER 2022-08-17 08:39 | Outpatient (CLI) | payer MEDICARE ==
[2022-08-17 12:46] LABS: BASOPHILS # (AUTO) 0.1 10^3/uL (0.0-0.1); BASOPHILS % (AUTO) 0.7 %; EOSINOPHILS # (AUTO) 0.1 10^3/uL (0.0-0.7); HCT - HEMATOCRIT 46.9 % (37.0-47.0); HGB - HEMOGLOBIN 15.8 g/dL (12.0-16.0); LYMPHOCYTES # (AUTO) 2.6 10^3/uL (1.5-3.5); LYMPHOCYTES % (AUTO) 21.2 %; MEAN CORPUSCULAR HEMOGLOBIN 30.6 pg (27.0-31.0); MEAN CORPUSCULAR HGB CONC 33.7 g/dL (32.0-36.0); MEAN CORPUSCULAR VOLUME 90.9 fL (81.0-99.0); MONOCYTES # (AUTO) 0.7 10^3/uL (0.0-1.0); MONOCYTES % (AUTO) 5.9 %; NEUTROPHILS # (AUTO) 8.5 10^3/uL (1.5-6.6); NEUTROPHILS % (AUTO) 69.9 %; PLT - PLATELET COUNT 402 10^3/uL (130-450); RED BLOOD COUNT 5.16 10^6/uL (4.20-5.40); RED CELL DISTRIBUTION WIDTH 13.2 % (12.0-15.0); WHITE BLOOD COUNT 12.2 x10^3/uL (4.8-10.8)
[2022-08-17 13:23] LABS: THYROID STIMULATING HORMONE 11.43 uIU/mL (0.34-5.60)
[2022-08-17 13:24] LABS: ALBUMIN 4.2 g/dL (3.2-5.5); ALBUMIN/GLOBULIN RATIO 1.2 (1.0-2.2); ALKALINE PHOSPHATASE 131 IU/L (42-121); ALT ALANINE AMINOTRANSFERASE 25 IU/L (10-60); AST ASPARTATE AMINOTRANSFERASE 21 IU/L (10-42); BILIRUBIN,TOTAL 0.2 mg/dL (0.2-1.0); BUN - BLOOD UREA NITROGEN 13 mg/dL (6-20); CALCIUM 10.1 mg/dL (8.5-10.3); CARBON DIOXIDE - CO2 29 mmol/L (21-32); CHLORIDE 97 mmol/L (101-111); CHOL/HDL RATIO 5.3 (<4.4); CHOLESTEROL 297 mg/dL; CREATININE 0.7 mg/dL (0.4-1.0); FREE T3 3.43 pg/mL (2.5-3.9); GFR - MDRD 86 (>89); GLUCOSE 296 mg/dL (70-100); HDL CHOLESTEROL 56 mg/dL; LDL CHOLESTEROL,CALCULATED 182 mg/dL; LDL/HDL RATIO 3.3 (<4.4); POTASSIUM 4.3 mmol/L (3.5-5.0); SODIUM 133 mmol/L (135-145); TOTAL PROTEIN 7.6 g/dL (6.7-8.2); TRIGLYCERIDES 294 mg/dL; VLDL CHOLESTEROL 59 mg/dL
[2022-08-17 13:25] LABS: CREATININE,URINE 48.8 mg/dL; FREE T4 (FREE THYROXINE) 0.71 ng/dL (0.58-1.64); MICROALBUM/CREATININE RATIO,UR 10.2 ug/mg (<30.0); MICROALBUMIN,URINE 0.5 mg/dL (0-300.0)
[2022-08-17 13:37] LABS: ESTIMATED AVERAGE GLUCOSE 243 mg/dL (70-100); HEMOGLOBIN A1c% 10.1 % (4.27-6.07)
== END 2022-08-17 08:40 | disposition home or self-care (01) ==
LOC: LAB.N 08:39
PROVIDERS: ATTEND Family Medicine
DX: E11.65 Type 2 diabetes mellitus with hyperglycemia (principal); F17.200 Nicotine dependence, unspecified, uncomplicated; B35.1 Tinea unguium; K21.9 Gastro-esophageal reflux disease without esophagitis; E03.9 Hypothyroidism, unspecified
CPT/HCPCS: 36415; 80053; 80061; 82043; 82570; 83036; 83721; 84439; 84443; 84481; 85025

== ENCOUNTER 2022-09-15 17:00 | Outpatient (CLI) | payer MEDICARE | END 2022-09-15 17:01 | disposition critical access hospital (66) | LOC: EMS 17:00 | DX: R10.13 Epigastric pain (principal) | CPT/HCPCS: A0425; A0427 ==

== ENCOUNTER 2022-09-15 17:17 | Emergency (ER) | payer MEDICARE ==
--- NOTE | 2022-09-15 17:45 | ED Physician Documentation ---
PD HPI ABD PAIN - Stated complaint Stated Complaint: ABD PX - Chief complaint Chief Complaint: Abd Pain - History obtained from History obtained from: Patient - History of Present Illness Timing - onset: How many days ago (3) Timing - duration: Days (3) Timing - details: Gradual onset Pain level max: 8 Pain level now: 8 Quality: Aching, Stabbing, Pain Location: All over / everywhere Associated symptoms: Nausea, Vomiting. No: Hematemesis, Diarrhea, Constipation, Melena, Hematochezia - Additional information Additional information: 56-year-old female is complaining of generalized abdominal pain, but mainly just above the umbilicus. She states been ongoing for about 3 days, worsening over the past 2. She has had nausea and vomiting. No blood. No diarrhea or constipation. No fevers. No chills. She states that she has had a bowel obstruction about 5 years ago. She has had an appendectomy and cholecystectomy as well as a in the past. She has a history of IBS. History of diabetes, fibromyalgia, reflux. History of gastric ulcers as well. Review of Systems Constitutional: denies: Fever, Chills Respiratory: denies: Cough GI: reports: Nausea, Vomiting Skin: denies: Rash Neurologic: denies: Headache PD PAST MEDICAL HISTORY - Past Medical History Cardiovascular: Hypertension Respiratory: COPD, Pneumonia Neuro: None Endocrine/Autoimmune: Type 2 diabetes, HyPOthyroidism GI: Ulcers MORTICIAN INVESTIGATOR: None : Kidney stones HEENT: None Psych: Depression, Anxiety, Bipolar disorder Musculoskeletal: Fibromyalgia, Chronic back pain Derm: None - Past Surgical History Past Surgical History: Yes General: Cholecystectomy, Appendectomy Ortho: Spine surgery /MORTICIAN INVESTIGATOR: section, Tubal ligation HEENT: Other - Present Medications Home Medications: Ambulatory Orders Medication Instructions Recorded Confirmed Levothyroxine Sodium [Levoxyl] 200 mcg PO DAILY 06/16/13 09/15/22 Syring-Needl,Disp,Insul,0.3 ml 1 each MC DAILY #30 disp.syrin 09/05/14 05/29/17 [Insulin Syringe] Insulin Glargine [Lantus] 40 unit SUBQ QPM 09/26/16 02/08/19 Ipratropium/Albuterol [Combivent 1 puffs IH Q6H PRN #1 aer.w.adap 09/26/16 02/08/19 Respimat] Insulin Lispro [Humalog] 14 unit SUBQ AC 05/27/17 02/08/19 Alprazolam [Xanax] 1 mg PO TID 02/08/18 02/08/19 Docusate Sodium 100 mg PO DAILY #30 capsule 10/11/18 02/08/19 Duloxetine HCl [Cymbalta] 120 mg PO DAILY PM 02/08/19 09/15/22 Gabapentin 300 mg PO TID 02/08/19 09/15/22 Morphine Sulfate 7.5 - 15 mg PO BID PRN 02/08/19 02/08/19 Morphine Sulfate ER [Ms Contin] 30 mg PO BID 02/08/19 09/15/22 Quetiapine Fumarate 600 mg PO QPM 02/08/19 09/15/22 Tizanidine HCl 4 mg PO BID 02/08/19 09/15/22 Albuterol Sulfate [Proair Hfa 1 - 2 puffs INH Q4H PRN 12/08/19 12/08/19 Inhaler] Baclofen 10 mg PO TID 12/08/19 12/08/19 Magnesium Hydroxide [Milk of 30 ml PO BID PRN 12/08/19 12/08/19 Magnesia] Meloxicam [Mobic] 7.5 mg PO BID PRN #10 tablet 05/31/20 Gabapentin [Neurontin] 300 mg PO TID 09/15/22 09/15/22 Omeprazole 40 mg PO DAILY 09/15/22 09/15/22 Ondansetron Odt [Zofran] 4 mg TL Q6H PRN #10 tablet 09/15/22 metFORMIN [Glucophage] 500 mg PO BIDWM 09/15/22 09/15/22 polyethylene glycoL 3350(BULK) 17 gm PO DAILY PRN #1 each 09/15/22 [Miralax] - Allergies Allergies/Adverse Reactions: Allergies Allergy/AdvReac Type Severity Reaction Status Date / Time No Known Drug Allergies Allergy Verified 09/15/22 17:33 - Social History Does the pt smoke?: No Smoking Status: Never smoker Does the pt drink ETOH?: No Does the pt have substance abuse?: No - Immunizations Immunizations are current?: Yes - POLST Patient has POLST: No PD ED PE NORMAL - Vitals Vital signs reviewed: Yes - General General: Alert and oriented X 3, No acute distress - HEENT HEENT: PERRL, Moist mucous membranes - Neck Neck: Supple, no meningeal sign - Cardiac Cardiac: RRR, Strong equal pulses - Respiratory Respiratory: No respiratory distress, Clear bilaterally - Abdomen Abdomen: Soft, Non distended, Other (Diffusely tender to palpation, but mainly in the epigastric region. No peritoneal signs.) - Back Back: No CVA TTP, No spinal TTP - Derm Derm: Warm and dry - Extremities Extremities: No edema - Neuro Neuro: Alert and oriented X 3 - Psych Psych: Normal mood, Normal affect Results - Vitals Vitals: Vital Signs - 24 hr 09/15/22 09/15/22 09/15/22 17:26 17:39 20:12 Temperature 36.6 C 36.1 C L Heart Rate 95 97 83 Respiratory 20 18 18 Rate Blood Pressure 146/72 H 138/85 H 138/65 H O2 Saturation 95 97 98 09/15/22 21:34 Temperature 37.0 C Heart Rate 84 Respiratory 18 Rate Blood Pressure 148/70 H O2 Saturation 97 Oxygen O2 Source Room air - Labs Labs: Laboratory Tests 09/15/22 09/15/22 09/15/22 17:54 17:54 17:54 WBC 14.9 H RBC 4.77 Hgb 14.6 Hct 41.8 MCV 87.6 MCH 30.6 MCHC 34.9 RDW 12.3 Plt Count 476 H MPV 8.7 Neut # (Auto) 12.7 H Lymph # (Auto) 1.5 [place] # (Auto) 0.5 Eos # (Auto) 0.0 Baso # (Auto) 0.1 Absolute Nucleated RBC 0.00 Nucleated RBC % 0.0 VBG pH 7.410 VBG pCO2 43.3 VBG pO2 53.0 H VBG HCO3 26.7 VBG Total CO2 28.0 VBG O2 Saturation 90.1 H VBG Base Excess 1.7 Sodium 135 Potassium 3.8 Chloride 94 L Carbon Dioxide 27 Anion Gap 14.0 H BUN 15 Creatinine 0.6 Estimated GFR (MDRD) 103 Glucose 337 H Calcium 9.7 Total Bilirubin 0.5 AST 16 ALT 22 Alkaline Phosphatase 139 H Total Protein 7.8 Albumin 4.2 Globulin 3.6 Albumin/Globulin Ratio 1.2 Lipase 30 Urine Color Urine Clarity Urine pH Ur Specific [place] Urine Protein Urine Glucose (UA) Urine Ketones Urine Occult Blood Urine Nitrite Urine Bilirubin Urine Urobilinogen Ur Leukocyte Esterase Ur Microscopic Review Urine Culture Comments Urine HCG, Qual Serum Ketones NEGATIVE 09/15/22 20:13 WBC RBC Hgb Hct MCV MCH MCHC RDW Plt Count MPV Neut # (Auto) Lymph # (Auto) [place] # (Auto) Eos # (Auto) Baso # (Auto) Absolute Nucleated RBC Nucleated RBC % VBG pH VBG pCO2 VBG pO2 VBG HCO3 VBG Total CO2 VBG O2 Saturation VBG Base Excess Sodium Potassium Chloride Carbon Dioxide Anion Gap BUN Creatinine Estimated GFR (MDRD) Glucose Calcium Total Bilirubin AST ALT Alkaline Phosphatase Total Protein Albumin Globulin Albumin/Globulin Ratio Lipase Urine Color YELLOW Urine Clarity CLEAR Urine pH 7.0 Ur Specific [place] <=1.005 Urine Protein NEGATIVE Urine Glucose (UA) 500 H Urine Ketones NEGATIVE Urine Occult Blood NEGATIVE Urine Nitrite NEGATIVE Urine Bilirubin NEGATIVE Urine Urobilinogen 0.2 (NORMAL) Ur Leukocyte Esterase NEGATIVE Ur Microscopic Review NOT INDICATED Urine Culture Comments NOT INDICATED Urine HCG, Qual NEGATIVE Serum Ketones - Rads (name of study) CT abdomen pelvis Relevant Findings:: Final report received, See rad report PD Medical Decision Making - ED course Complexity details: reviewed results, re-evaluated patient, considered differential, d/w patient ED course: 56-year-old female presents with abdominal pain. No acute findings on CT scan of the abdomen/pelvis other than constipation. She is on morphine at home, likely the cause of constipation. Has a mildly elevated white blood cell count at 14,900. She is diabetic and her blood sugar is elevated at 337. Otherwise no significant abnormalities on her ER abdominal panel. Mildly elevated alkaline phosphatase as well. Urinalysis just shows glucosuria. Blood gases not consistent with DKA. She was given a dose of IV Dilaudid, saline. Feels much better. She would like to go home at this time. Tolerating p.o. without difficulty. We will place her on laxatives for the constipation and have her follow-up with her doctor for further care. Encouraged her to return if she worsens. No fever. No evidence of sepsis. No evidence of bowel obstruction or perforation. Patient counseled regarding signs and symptoms for which I believe and urgent re-evaluation would be necessary. Patient with good understanding of and agreement to plan and is comfortable going home at this time This document was made in part using voice recognition software. While efforts are made to proofread this document, sound alike and grammatical errors may occur. Departure - Departure Disposition: 01 Home, Self Care Clinical Impression: Hyperglycemia Abdominal pain Qualifiers: Abdominal location: unspecified location Qualified Code(s): R10.9 - Unspecified abdominal pain Constipation Qualifiers: Constipation type: unspecified constipation type Qualified Code(s): K59.00 - Constipation, unspecified Condition: Good Instructions: ED Abdominal Pain Female Non-Specific Abdominal Pain, ED Constipation Follow-Up: Hugo Wahl MD [Primary Care Provider] - Within 1 week Prescriptions: polyethylene glycoL 3350(BULK) [Miralax] 17 gm PO DAILY PRN #1 each PRN Reason: Constipation Ondansetron Odt [Zofran] 4 mg TL Q6H PRN #10 tablet PRN Reason: Nausea / Vomiting Comments: Your prescriptions were sent to [facility] in [place]. Please follow-up with your doctor for further care. Please return if you worsen. Your CT scan does not show any acute abnormalities. You do have constipation. There is no evidence of perforation, obstruction or infection. Discharge Date/Time: 09/15/22 21:46
[2022-09-15 17:59] LABS: BASOPHILS # (AUTO) 0.1 10^3/uL (0.0-0.1); BASOPHILS % (AUTO) 0.4 %; EOSINOPHILS % (AUTO) 0.1 %; HCT - HEMATOCRIT 41.8 % (37.0-47.0); HGB - HEMOGLOBIN 14.6 g/dL (12.0-16.0); LYMPHOCYTES # (AUTO) 1.5 10^3/uL (1.5-3.5); LYMPHOCYTES % (AUTO) 10.2 %; MEAN CORPUSCULAR HEMOGLOBIN 30.6 pg (27.0-31.0); MEAN CORPUSCULAR HGB CONC 34.9 g/dL (32.0-36.0); MEAN CORPUSCULAR VOLUME 87.6 fL (81.0-99.0); MEAN PLATELET VOLUME 8.7 fL (7.9-10.8); MONOCYTES # (AUTO) 0.5 10^3/uL (0.0-1.0); NEUTROPHILS # (AUTO) 12.7 10^3/uL (1.5-6.6); NEUTROPHILS % (AUTO) 85.2 %; PLT - PLATELET COUNT 476 10^3/uL (130-450); RED BLOOD COUNT 4.77 10^6/uL (4.20-5.40); RED CELL DISTRIBUTION WIDTH 12.3 % (12.0-15.0); WHITE BLOOD COUNT 14.9 x10^3/uL (4.8-10.8)
[2022-09-15 18:03] LABS: VBG PH 7.41 (7.31-7.41)
[2022-09-15 18:04] LABS: VBG HCO3 26.7 mmol/L (23-28); VBG PCO2 43.3 mmHg (41-51)
[2022-09-15] MEDS ORDERED: PROMETHAZINE INJ 25 MG in SODIUM CHLORIDE 0.9% 50 ML IV STA (18:04)
[2022-09-15] MEDS ORDERED: HYDROmorphone 1 MG/ML CARPUJECT IVP STA ×2 (18:04→21:23)
[2022-09-15] MEDS ORDERED: SODIUM CHLORIDE 0.9% 1,000 ML IV STA ×2 (18:04)
[2022-09-15 18:05] LABS: VBG BASE EXCESS 1.7 mmol/L (-2 - +2); VBG OXYGEN SATURATION 90.1 % (60-80)
[2022-09-15 18:11] LABS: ALBUMIN 4.2 g/dL (3.2-5.5); ALBUMIN/GLOBULIN RATIO 1.2 (1.0-2.2); ALKALINE PHOSPHATASE 139 IU/L (42-121); ALT ALANINE AMINOTRANSFERASE 22 IU/L (10-60); AST ASPARTATE AMINOTRANSFERASE 16 IU/L (10-42); BILIRUBIN,TOTAL 0.5 mg/dL (0.2-1.0); BUN - BLOOD UREA NITROGEN 15 mg/dL (6-20); CALCIUM 9.7 mg/dL (8.5-10.3); CARBON DIOXIDE - CO2 27 mmol/L (21-32); CHLORIDE 94 mmol/L (101-111); CREATININE 0.6 mg/dL (0.4-1.0); GFR - MDRD 103 (>89); GLUCOSE 337 mg/dL (70-100); LIPASE 30 U/L (22-51); POTASSIUM 3.8 mmol/L (3.5-5.0); SODIUM 135 mmol/L (135-145); TOTAL PROTEIN 7.8 g/dL (6.7-8.2)
[2022-09-15 18:13] LABS: KETONES, SERUM (ACETEST) NEGATIVE (NEGATIVE)
[2022-09-15] MEDS ORDERED: iohexoL-300 100 ML VIAL ONE (18:35)
[2022-09-15] MEDS ORDERED: iohexoL-300 100 ML VIAL IVP ONE (19:36)
[2022-09-15 20:20] LABS: BILIRUBIN,URINE NEGATIVE (NEGATIVE); GLUCOSE, URINE (UA) 500 mg/dL (NEGATIVE); KETONES,URINE (UA) NEGATIVE (NEGATIVE); LEUKOCYTE ESTERASE, URINE NEGATIVE (NEGATIVE); NITRITE,URINE NEGATIVE (NEGATIVE); OCCULT BLOOD,URINE NEGATIVE (NEGATIVE); PROTEIN,URINE NEGATIVE (NEGATIVE); UROBILINOGEN,URINE 0.2 (NORMAL) E.U./dL (NORMAL)
--- NOTE | 2022-09-15 20:23 | CT Report ---
PROCEDURE: ABDOMEN/PELVIS W INDICATIONS: abd pain, vomiting CONTRAST: Omni 300 100ml TECHNIQUE: After the administration of intravenous contrast, 5 mm thick sections acquired from the diaphragms to the symphysis. 5 mm thick coronal and sagittal reformats were acquired. For radiation dose reducti on, the following was used: automated exposure control, adjustment of mA and/or kV according to bertha ent size. COMPARISON: CT of abdomen/pelvis 05/31/2020 FINDINGS: Image quality: Excellent. Lung bases and heart: Unremarkable. Liver: Unremarkable. Gallbladder and biliary tree: Surgically absent. No biliary dilation, accounting for post-cholecystec karthik state. Spleen: Unremarkable. Pancreas: Unremarkable. Adrenals: Unremarkable. Kidneys and ureters: Unremarkable. Bowel and peritoneum: No bowel distension. No pathologic free fluid. Moderate to large volume of stoo l is seen in the ascending and transverse colon. Descending colon is underdistended. Lymph nodes: No central or retroperitoneal adenopathy. Vessels: Moderate aortic atherosclerotic calcifications. PELVIS Reproductive organs: Unremarkable. Bladder: Unremarkable. Lymph nodes: Unremarkable. Bones: No aggressive osseous abnormality. Other: Tiny fat-containing periumbilical hernia. IMPRESSION: 1.No definite acute abnormality identified in the abdomen or pelvis. 2.Moderate to large volume of stool in the ascending and transverse colon. 3.Mild bowel wall thickening in the descending and sigmoid colon is most likely related to underdiste ntion, but a mild or early colitis cannot be excluded. Reviewed by: Raghavendra Arellano MD on 09/15/2022 8:22 PM PDT Approved by: Raghavendra Arellano MD on 09/15/2022 8:22 PM PDT Station ID: [id number]
[2022-09-15 20:31] LABS: CLARITY,URINE CLEAR (CLEAR)
[2022-09-15 20:32] LABS: HCG UR QUAL NEGATIVE
[2022-09-15 21:45] VITALS: BP 148/70
== END 2022-09-15 21:46 | disposition home or self-care (01) ==
LOC: ED 17:17
DX: R10.9 Unspecified abdominal pain (principal); K59.00 Constipation, unspecified; E11.65 Type 2 diabetes mellitus with hyperglycemia; I10 Essential (primary) hypertension; J44.9 Chronic obstructive pulmonary disease, unspecified; E03.9 Hypothyroidism, unspecified; Z79.84 Long term (current) use of oral hypoglycemic drugs; Z79.4 Long term (current) use of insulin; Z79.899 Other long term (current) drug therapy
CPT/HCPCS: 36415; 74177; 80053; 81003; 81025; 82009; 82803; 83690; 85025; 96374; 96376; 99284; J1170; J7040; Q9967; 81001; 87086

== ENCOUNTER 2022-11-17 11:53 | Outpatient (CLI) | payer MEDICARE ==
[2022-11-17 17:59] LABS: BASOPHILS # (AUTO) 0.1 10^3/uL (0.0-0.1); BASOPHILS % (AUTO) 0.9 %; EOSINOPHILS # (AUTO) 0.2 10^3/uL (0.0-0.7); EOSINOPHILS % (AUTO) 2.5 %; HGB - HEMOGLOBIN 13.6 g/dL (12.0-16.0); LYMPHOCYTES # (AUTO) 2.5 10^3/uL (1.5-3.5); LYMPHOCYTES % (AUTO) 36.7 %; MEAN CORPUSCULAR HEMOGLOBIN 29.4 pg (27.0-31.0); MEAN CORPUSCULAR HGB CONC 33.2 g/dL (32.0-36.0); MEAN CORPUSCULAR VOLUME 88.7 fL (81.0-99.0); MEAN PLATELET VOLUME 10.3 fL (7.9-10.8); MONOCYTES # (AUTO) 0.7 10^3/uL (0.0-1.0); MONOCYTES % (AUTO) 10.8 %; NEUTROPHILS # (AUTO) 3.2 10^3/uL (1.5-6.6); NEUTROPHILS % (AUTO) 47.8 %; PLT - PLATELET COUNT 379 10^3/uL (130-450); RED BLOOD COUNT 4.62 10^6/uL (4.20-5.40); RED CELL DISTRIBUTION WIDTH 12.8 % (12.0-15.0); WHITE BLOOD COUNT 6.8 x10^3/uL (4.8-10.8)
[2022-11-17 18:15] LABS: ALBUMIN 3.9 g/dL (3.2-5.5); ALBUMIN/GLOBULIN RATIO 1.2 (1.0-2.2); BILIRUBIN,TOTAL 0.4 mg/dL (0.2-1.0); CALCIUM 9.2 mg/dL (8.5-10.3); CREATININE 0.7 mg/dL (0.4-1.0); POTASSIUM 4.5 mmol/L (3.5-5.0); TOTAL PROTEIN 7.2 g/dL (6.7-8.2)
[2022-11-17 18:27] LABS: THYROID STIMULATING HORMONE 1.22 uIU/mL (0.34-5.60)
[2022-11-17 18:30] LABS: FREE T3 3.1 pg/mL (2.5-3.9)
[2022-11-17 18:31] LABS: FREE T4 (FREE THYROXINE) 0.97 ng/dL (0.58-1.64)
[2022-11-17 20:22] LABS: ESTIMATED AVERAGE GLUCOSE 229 mg/dL (70-100); HEMOGLOBIN A1c% 9.6 % (4.27-6.07)
== END 2022-11-17 11:54 | disposition home or self-care (01) ==
LOC: LAB.N 11:53
PROVIDERS: ATTEND Family Medicine
DX: E11.65 Type 2 diabetes mellitus with hyperglycemia (principal); R63.4 Abnormal weight loss; F31.81 Bipolar II disorder; M79.7 Fibromyalgia; F41.9 Anxiety disorder, unspecified
CPT/HCPCS: 36415; 80053; 83036; 84439; 84443; 84481; 85025

== ENCOUNTER 2023-04-16 08:37 | Outpatient (CLI) | payer MEDICARE, MEDICAID | END 2023-04-16 23:59 | disposition critical access hospital (66) | LOC: EMS 08:37 | DX: R10.33 Periumbilical pain (principal); R11.10 Vomiting, unspecified; R19.5 Other fecal abnormalities | CPT/HCPCS: A0425; A0427 ==

== ENCOUNTER 2023-04-16 08:54 | Emergency (ER) | payer MEDICARE, MEDICAID ==
--- NOTE | 2023-04-16 09:02 | ED Physician Documentation ---
PD HPI ABD PAIN - Stated complaint Stated Complaint: ABD PX - Chief complaint Chief Complaint: Abd Pain - History obtained from History obtained from: Patient - History of Present Illness Timing - onset: How many days ago (2) Timing - duration: Days (2) Timing - details: Gradual onset, Still present Quality: Cramping, Aching, Pain Location: Periumbilical, LLQ Radiation: Chest. No: Lower back, Left flank, Right flank Improved by: Laying still. No: Eating, BM Worsened by: Eating, Moving, Palpation. No: Breathing Associated symptoms: Nausea, Loss of appetite. No: Fever, Vomiting, Diarrhea, Constipation, Dysuria Similar symptoms before: No diagnosis (has had similar pains with nausea lasting hour or two, sometimes shorter. Current episode similar but has persistend and worsened the past 2 days.) Review of Systems Constitutional: denies: Fever, Chills, Myalgias Nose: denies: Rhinorrhea / runny nose, Congestion Throat: denies: Sore throat Cardiac: denies: Chest pain / pressure, Palpitations Respiratory: denies: Dyspnea, Cough GI: reports: Abdominal Pain, Nausea. denies: Vomiting, Diarrhea : denies: Dysuria PD PAST MEDICAL HISTORY - Past Medical History Cardiovascular: Hypertension Respiratory: COPD, Pneumonia Neuro: None Endocrine/Autoimmune: Type 2 diabetes, HyPOthyroidism GI: Ulcers [place]: None : Kidney stones HEENT: None Psych: Depression, Anxiety, Bipolar disorder Musculoskeletal: Fibromyalgia, Chronic back pain Derm: None - Past Surgical History Past Surgical History: Yes General: Cholecystectomy, Appendectomy Ortho: Spine surgery /[place]: section, Tubal ligation HEENT: Other - Present Medications Home Medications: Ambulatory Orders Medication Instructions Recorded Confirmed Levothyroxine Sodium [Levoxyl] 200 mcg PO DAILY 06/16/13 09/15/22 Syring-Needl,Disp,Insul,0.3 ml 1 each MC DAILY #30 disp.syrin 09/05/14 05/29/17 [Insulin Syringe] Insulin Glargine [Lantus] 40 unit SUBQ QPM 09/26/16 02/08/19 Ipratropium/Albuterol [Combivent 1 puffs IH Q6H PRN #1 aer.w.adap 09/26/16 02/08/19 Respimat] Insulin Lispro [Humalog] 14 unit SUBQ AC 05/27/17 02/08/19 Alprazolam [Xanax] 1 mg PO TID 02/08/18 02/08/19 Docusate Sodium 100 mg PO DAILY #30 capsule 10/11/18 02/08/19 Duloxetine HCl [Cymbalta] 120 mg PO DAILY PM 02/08/19 09/15/22 Gabapentin 300 mg PO TID 02/08/19 09/15/22 Morphine Sulfate 7.5 - 15 mg PO BID PRN 02/08/19 02/08/19 Morphine Sulfate ER [Ms Contin] 30 mg PO BID 02/08/19 09/15/22 Quetiapine Fumarate 600 mg PO QPM 02/08/19 09/15/22 Tizanidine HCl 4 mg PO BID 02/08/19 09/15/22 Albuterol Sulfate [Proair Hfa 1 - 2 puffs INH Q4H PRN 12/08/19 12/08/19 Inhaler] Baclofen 10 mg PO TID 12/08/19 12/08/19 Magnesium Hydroxide [Milk of 30 ml PO BID PRN 12/08/19 12/08/19 Magnesia] Meloxicam [Mobic] 7.5 mg PO BID PRN #10 tablet 05/31/20 Gabapentin [Neurontin] 300 mg PO TID 09/15/22 09/15/22 Omeprazole 40 mg PO DAILY 09/15/22 09/15/22 Ondansetron Odt [Zofran] 4 mg TL Q6H PRN #10 tablet 09/15/22 metFORMIN [Glucophage] 500 mg PO BIDWM 09/15/22 09/15/22 polyethylene glycoL 3350(BULK) 17 gm PO DAILY PRN #1 each 09/15/22 [Miralax] Bisacodyl Supp [Dulcolax Supp] 10 mg UT DAILY PRN #10 supp 04/16/23 Docusate Sodium 100Mg Capsule 100 mg PO DAILY #20 cap 04/16/23 [Colace 100Mg Capsule] Lactulose 10 gm PO BID PRN #10 packet 04/16/23 Meloxicam [Mobic] 7.5 mg PO BID 10 Days #20 tablet 04/16/23 - Allergies Allergies/Adverse Reactions: Allergies Allergy/AdvReac Type Severity Reaction Status Date / Time No Known Drug Allergies Allergy Verified 09/15/22 17:33 - Social History Does the pt smoke?: No Smoking Status: Never smoker Does the pt drink ETOH?: No Does the pt have substance abuse?: No - Immunizations Immunizations are current?: Yes - POLST Patient has POLST: No PD ED PE NORMAL - Vitals Vital signs reviewed: Yes - General General: Alert and oriented X 3, Well developed/nourished, Other (appears in considerable pain mid abd. ) - Neck Neck: Supple, no meningeal sign, No adenopathy - Cardiac Cardiac: RRR, No murmur - Respiratory Respiratory: Clear bilaterally - Abdomen Abdomen: Soft, Non distended, No organomegaly, Other (tender mid abd to lower abd, more to the left. Guarding with palpation and some rebound. ). No: Normal bowel sounds (diminished) - Derm Derm: Normal color, Warm and dry - Extremities Extremities: No edema, No calf tenderness / cord - Neuro Neuro: Alert and oriented X 3, No motor deficit, Normal speech Results - Vitals Vitals: Vital Signs - 24 hr 04/16/23 04/16/23 04/16/23 08:58 11:00 13:03 Temperature 36.8 C 36.8 C Heart Rate 85 95 88 Respiratory 22 14 16 Rate Blood Pressure 171/83 H 174/97 H 160/88 H O2 Saturation 100 99 99 Oxygen O2 Source Room air - Labs Labs: Laboratory Tests 04/16/23 04/16/23 04/16/23 09:11 09:11 09:33 WBC 7.3 RBC 4.24 Hgb 12.7 Hct 36.1 L MCV 85.1 MCH 30.0 MCHC 35.2 RDW 12.6 Plt Count 278 MPV 9.0 Neut # (Auto) 5.5 Lymph # (Auto) 1.2 L [place] # (Auto) 0.4 Eos # (Auto) 0.1 Baso # (Auto) 0.0 Absolute Nucleated RBC 0.00 Nucleated RBC % 0.0 Sodium 130 L Potassium 4.5 Chloride 94 L Carbon Dioxide 30 Anion Gap 6.0 BUN 10 Creatinine 0.7 Estimated GFR (MDRD) 86 L Glucose 349 H Calcium 9.6 Total Bilirubin 0.3 AST 17 ALT 22 Alkaline Phosphatase 139 H Total Protein 7.4 Albumin 4.5 Globulin 2.9 Albumin/Globulin Ratio 1.6 Lipase 35 Urine Color YELLOW Urine Clarity CLEAR Urine pH 6.5 Ur Specific [place] 1.010 Urine Protein NEGATIVE Urine Glucose (UA) >=1000 H Urine Ketones NEGATIVE Urine Occult Blood NEGATIVE Urine Nitrite NEGATIVE Urine Bilirubin NEGATIVE Urine Urobilinogen 0.2 (NORMAL) Ur Leukocyte Esterase NEGATIVE Ur Microscopic Review NOT INDICATED Urine Culture Comments NOT INDICATED - Rads (name of study) abd/pelvic CT Relevant Findings:: Prelim report reviewed (no noted acute cause for the pain. Large diffuse fecal load. Fatty liver. ) PD Medical Decision Making - ED course Complexity details: reviewed results (WBC is normal. UA without infection. CT abd/pel showing large fecal load. Otherwise no acute findings to account for pain. ), re-evaluated patient (improved pain moderately only with initial Toradol and Dilaudid, Zofran for nausea. Better improved with repat Dilaudid. ), considered differential (concern for appendicitis, diverticulitis, ovarian, kidney stone, aortic process, gastroparesis, colitis, among others. ), d/w patient ED course: the patient did have improvement of pain wiht IV meds. Labs without acute process, in particular normal WBC, lipase, renal function and UA without infection. CT done after discussion with pt. This did not show obvious cause for pain. Discussed with pt then need to consider causes of abd pain that appear normal on CT. Presume some effect from large stoool load. Otherwise gastroparesis or IBS type process. Departure - Departure Disposition: 01 Home, Self Care Clinical Impression: Abdominal pain, acute, generalized, Large stool, Diabetes Condition: Stable Record reviewed to determine appropriate education?: Yes Instructions: ED Abdominal Pain Female Non-Specific Abdominal Pain Prescriptions: Docusate Sodium 100Mg Capsule [Colace 100Mg Capsule] 100 mg PO DAILY #20 cap Bisacodyl Supp [Dulcolax Supp] 10 mg UT DAILY PRN #10 supp PRN Reason: Constipation Lactulose 10 gm PO BID PRN #10 packet PRN Reason: Constipation Meloxicam [Mobic] 7.5 mg PO BID 10 Days #20 tablet Comments: Your CT scan does not identify an obvious cause for the pain. They do comment on a large amount of stool and this could be causing some stretching of the intestine and cramping pain. Causes for your pain that would not be demonstrated on CT scan could be spasming of the intestines such as irritable bowel, stretching of it as from constipation, or irritation of the intestines from food related or other such. At this point I would treat with stool softeners and some mild laxatives to have more regular stool movements. This can be done through rectal suppository such as Dulcolax and also orally with a combination of stool softener and laxative. I wrote down some suggestions for that. Meanwhile you could use a anti-inflammatory to help with some of the pain. Add Tylenol 500 to 650 mg 4 times daily to help as well. Opioid type pain med ications will be counterproductive with the augmenting constipation. I sent your prescriptions to your preferred pharmacy. Continue your other usual medicines. Try to stay well-hydrated. Recheck if not improved well over the next day or 2 and return if worse. Forms: PCP List Discharge Date/Time: 04/16/23 13:03
[2023-04-16] MEDS ORDERED: HYDROmorphone 1 MG/ML CARPUJECT IVP STA ×2 (09:08→10:07)
[2023-04-16] MEDS ORDERED: ONDANSETRON 4 MG/2 ML VIAL IVP STA (09:08)
[2023-04-16] MEDS ORDERED: KETOROLAC 15 MG/ML VIAL IVP STA (09:08)
[2023-04-16] MEDS ORDERED: SODIUM CHLORIDE 0.9% 1,000 ML IV STA (09:09)
[2023-04-16 09:17] LABS: BASOPHILS % (AUTO) 0.6 %; EOSINOPHILS # (AUTO) 0.1 10^3/uL (0.0-0.7); EOSINOPHILS % (AUTO) 1.1 %; HCT - HEMATOCRIT 36.1 % (37.0-47.0); HGB - HEMOGLOBIN 12.7 g/dL (12.0-16.0); LYMPHOCYTES # (AUTO) 1.2 10^3/uL (1.5-3.5); MEAN CORPUSCULAR HGB CONC 35.2 g/dL (32.0-36.0); MEAN CORPUSCULAR VOLUME 85.1 fL (81.0-99.0); MONOCYTES # (AUTO) 0.4 10^3/uL (0.0-1.0); MONOCYTES % (AUTO) 5.8 %; NEUTROPHILS # (AUTO) 5.5 10^3/uL (1.5-6.6); NEUTROPHILS % (AUTO) 75.9 %; PLT - PLATELET COUNT 278 10^3/uL (130-450); RED BLOOD COUNT 4.24 10^6/uL (4.20-5.40); RED CELL DISTRIBUTION WIDTH 12.6 % (12.0-15.0); WHITE BLOOD COUNT 7.3 x10^3/uL (4.8-10.8)
[2023-04-16 09:32] LABS: ALBUMIN 4.5 g/dL (3.2-5.5); ALBUMIN/GLOBULIN RATIO 1.6 (1.0-2.2); BILIRUBIN,TOTAL 0.3 mg/dL (0.2-1.0); CALCIUM 9.6 mg/dL (8.5-10.3); CREATININE 0.7 mg/dL (0.6-1.3); POTASSIUM 4.5 mmol/L (3.5-4.5); TOTAL PROTEIN 7.4 g/dL (6.4-8.9)
[2023-04-16 09:40] LABS: BILIRUBIN,URINE NEGATIVE (NEGATIVE); GLUCOSE, URINE (UA) >=1000 mg/dL (NEGATIVE); KETONES,URINE (UA) NEGATIVE (NEGATIVE); LEUKOCYTE ESTERASE, URINE NEGATIVE (NEGATIVE); NITRITE,URINE NEGATIVE (NEGATIVE); OCCULT BLOOD,URINE NEGATIVE (NEGATIVE); PH,URINE 6.5 PH (5.0-7.5); PROTEIN,URINE NEGATIVE (NEGATIVE); UROBILINOGEN,URINE 0.2 (NORMAL) E.U./dL (NORMAL)
[2023-04-16 09:43] LABS: CLARITY,URINE CLEAR (CLEAR)
[2023-04-16 11:37] VITALS: O2SAT 99
--- NOTE | 2023-04-16 11:37 | CT Report ---
PROCEDURE: ABDOMEN/PELVIS W INDICATIONS: mid to upper abd pain 2 days, with vomiting CONTRAST: 100ml omni 300 TECHNIQUE: After the administration of intravenous contrast, 5 mm thick sections acquired from the diaphragms to the symphysis. 5 mm thick coronal and sagittal reformats were acquired. For radiation dose reducti on, the following was used: automated exposure control, adjustment of mA and/or kV according to bertha ent size. COMPARISON: 09/15/2022 FINDINGS: Image quality: Excellent. Lung bases and heart: Unremarkable. Liver: Mild to moderate diffuse hepatic steatosis. No focal solid masses. Gallbladder and biliary tree: Surgically absent. No biliary dilation, accounting for post-cholecystec karthik state. Spleen: No splenomegaly. Pancreas: No pancreatic ductal dilation. Adrenals: No adrenal nodule. Kidneys and ureters: No hydronephrosis. No renal cystic lesion which requires follow up. No solid mas s. Bowel and peritoneum: No bowel distension. No pathologic free fluid. Large diffuse fecal load. Lymph nodes: No central or retroperitoneal adenopathy. Vessels: No infrarenal aortic aneurysm. PELVIS Reproductive organs: Unremarkable. Bladder: No abnormal wall thickening, accounting for underdistension. Pelvic lymph nodes: No pelvic adenopathy by size criteria. Bones: No aggressive osseous abnormality. Other: No significant ventral or inguinal hernia. IMPRESSION: 1. Large diffuse fecal load. 2. Diffuse hepatic steatosis. 3. No acute abdominal process noted. Reviewed by: Baron Johnson MD on 04/16/2023 11:36 AM PDT Approved by: Baron Johnson MD on 04/16/2023 11:36 AM PDT Station ID: [id number]
[2023-04-16] MEDS ORDERED: LACTULOSE 10 GM /15 ML UDC PO STA (12:46)
[2023-04-16] MEDS ORDERED: DOCUSATE SODIUM 100 MG CAPSULE PO STA (12:46)
[2023-04-16 13:11] VITALS: BP 160/88
[2023-04-16] MEDS ORDERED: iohexoL-300 100 ML VIAL IVP ONE (19:11)
== END 2023-04-16 13:03 | disposition home or self-care (01) ==
LOC: EDUNIT# → ED 08:54
DX: R10.84 Generalized abdominal pain (principal); E11.9 Type 2 diabetes mellitus without complications; I10 Essential (primary) hypertension; J44.9 Chronic obstructive pulmonary disease, unspecified; E03.9 Hypothyroidism, unspecified; Z79.899 Other long term (current) drug therapy; Z79.4 Long term (current) use of insulin; Z79.84 Long term (current) use of oral hypoglycemic drugs
CPT/HCPCS: 36415; 74177; 80053; 81003; 83690; 85025; 96374; 96375; 96376; 99284; A9270; J1170; Q9967; 81001; 87086

== ENCOUNTER 2023-06-23 13:15 | Outpatient (CLI) | payer MEDICARE, MEDICAID ==
[2023-06-23 13:42] LABS: ESTIMATED AVERAGE GLUCOSE 266 mg/dL (70-100); HEMOGLOBIN A1c% 10.9 % (4.27-6.07)
[2023-06-23 14:05] LABS: CREATININE,URINE 37.1 mg/dL
[2023-06-23 14:06] LABS: MICROALBUMIN,URINE < 0.7 mg/dL
[2023-06-23 14:06] LABS: CALCIUM 9.1 mg/dL (8.5-10.3); CREATININE 0.8 mg/dL (0.6-1.3); POTASSIUM 3.8 mmol/L (3.5-4.5)
== END 2023-06-23 13:16 | disposition home or self-care (01) ==
LOC: LAB 13:15
PROVIDERS: ATTEND Family Medicine
DX: E11.65 Type 2 diabetes mellitus with hyperglycemia (principal)
CPT/HCPCS: 36415; 80048; 82043; 82570; 83036

== ENCOUNTER 2023-10-12 09:35 | Outpatient (CLI) | payer MEDICARE, MEDICAID ==
[2023-10-12 09:59] LABS: BASOPHILS % (AUTO) 0.4 %; EOSINOPHILS # (AUTO) 0.1 10^3/uL (0.0-0.7); EOSINOPHILS % (AUTO) 1.2 %; HCT - HEMATOCRIT 40.6 % (37.0-47.0); HGB - HEMOGLOBIN 13.3 g/dL (12.0-16.0); LYMPHOCYTES # (AUTO) 3.1 10^3/uL (1.5-3.5); LYMPHOCYTES % (AUTO) 33.5 %; MEAN CORPUSCULAR HEMOGLOBIN 29.2 pg (27.0-31.0); MEAN CORPUSCULAR HGB CONC 32.8 g/dL (32.0-36.0); MEAN CORPUSCULAR VOLUME 89.2 fL (81.0-99.0); MEAN PLATELET VOLUME 8.8 fL (7.9-10.8); MONOCYTES # (AUTO) 0.7 10^3/uL (0.0-1.0); MONOCYTES % (AUTO) 7.8 %; NEUTROPHILS # (AUTO) 5.2 10^3/uL (1.5-6.6); NEUTROPHILS % (AUTO) 55.7 %; PLT - PLATELET COUNT 376 10^3/uL (130-450); RED BLOOD COUNT 4.55 10^6/uL (4.20-5.40); RED CELL DISTRIBUTION WIDTH 12.6 % (12.0-15.0); WHITE BLOOD COUNT 9.3 x10^3/uL (4.8-10.8)
[2023-10-12 10:14] LABS: ALBUMIN 4.6 g/dL (3.2-5.5); ALBUMIN/GLOBULIN RATIO 1.5 (1.0-2.2); ALKALINE PHOSPHATASE 135 IU/L (42-121); ALT ALANINE AMINOTRANSFERASE 27 IU/L (10-60); AST ASPARTATE AMINOTRANSFERASE 21 IU/L (10-42); BILIRUBIN,TOTAL 0.3 mg/dL (0.2-1.0); BUN - BLOOD UREA NITROGEN 16 mg/dL (6-20); CALCIUM 10.5 mg/dL (8.5-10.3); CARBON DIOXIDE - CO2 29 mmol/L (21-32); CHLORIDE 96 mmol/L (101-111); CHOL/HDL RATIO 5.2 (<4.4); CHOLESTEROL 270 mg/dL; CREATININE 0.8 mg/dL (0.6-1.3); GFR - MDRD 74 (>89); GLUCOSE 283 mg/dL (74-104); HDL CHOLESTEROL 52 mg/dL; LDL CHOLESTEROL,CALCULATED 169 mg/dL; LDL/HDL RATIO 3.3 (<4.4); POTASSIUM 4.1 mmol/L (3.5-4.5); SODIUM 134 mmol/L (135-145); TOTAL PROTEIN 7.7 g/dL (6.4-8.9); TRIGLYCERIDES 245 mg/dL (48-352); VLDL CHOLESTEROL 49 mg/dL
[2023-10-12 10:21] LABS: ESTIMATED AVERAGE GLUCOSE 212 mg/dL (70-100)
[2023-10-12 10:30] LABS: THYROID STIMULATING HORMONE 0.03 uIU/mL (0.34-5.60)
== END 2023-10-12 09:36 | disposition home or self-care (01) ==
LOC: LAB 09:35
PROVIDERS: ATTEND Family Medicine
DX: M19.90 Unspecified osteoarthritis, unspecified site (principal); E66.9 Obesity, unspecified; E11.43 Type 2 diabetes mellitus with diabetic autonomic (poly)neuropathy; K31.84 Gastroparesis; K21.9 Gastro-esophageal reflux disease without esophagitis; E03.9 Hypothyroidism, unspecified; F31.81 Bipolar II disorder; M79.7 Fibromyalgia; M48.061 Spinal stenosis, lumbar region without neurogenic claudication
CPT/HCPCS: 36415; 80053; 80061; 82043; 82570; 83036; 83721; 84439; 84443; 84481; 85025

== ENCOUNTER 2024-02-21 11:13 | Outpatient (CLI) | payer MEDICARE, MEDICAID ==
[2024-02-21 11:52] LABS: ALBUMIN 4.5 g/dL (3.2-5.5); ALBUMIN/GLOBULIN RATIO 1.7 (1.0-2.2); BILIRUBIN,TOTAL 0.3 mg/dL (0.2-1.0); CALCIUM 9.8 mg/dL (8.5-10.3); CREATININE 0.8 mg/dL (0.6-1.3); POTASSIUM 4.3 mmol/L (3.5-4.5); TOTAL PROTEIN 7.1 g/dL (6.4-8.9)
[2024-02-21 12:00] LABS: ESTIMATED AVERAGE GLUCOSE 252 mg/dL (70-100); HEMOGLOBIN A1c% 10.4 % (4.27-6.07)
[2024-02-21 12:03] LABS: THYROID STIMULATING HORMONE 0.03 uIU/mL (0.34-5.60)
== END 2024-02-21 11:14 | disposition home or self-care (01) ==
LOC: LAB 11:13
PROVIDERS: ATTEND Family Medicine
DX: J44.9 Chronic obstructive pulmonary disease, unspecified (principal); E66.9 Obesity, unspecified; E11.65 Type 2 diabetes mellitus with hyperglycemia; K59.00 Constipation, unspecified; E03.9 Hypothyroidism, unspecified; Z79.891 Long term (current) use of opiate analgesic; F31.81 Bipolar II disorder; M79.7 Fibromyalgia
CPT/HCPCS: 36415; 80053; 82043; 82570; 83036; 84439; 84443; 84481

== ENCOUNTER 2024-02-22 08:00 | Outpatient (CLI) | payer MEDICARE, MEDICAID ==
[2024-02-22 20:11] LABS: CREATININE,URINE 152.6 mg/dL; MICROALBUM/CREATININE RATIO,UR 8.5 ug/mg (<30.0); MICROALBUMIN,URINE 1.3 mg/dL
== END 2024-02-22 23:59 | disposition home or self-care (01) ==
LOC: LAB.N 08:00
PROVIDERS: ATTEND Family Medicine
DX: J44.9 Chronic obstructive pulmonary disease, unspecified (principal); E66.9 Obesity, unspecified; E11.65 Type 2 diabetes mellitus with hyperglycemia; K59.00 Constipation, unspecified; E03.9 Hypothyroidism, unspecified; Z79.891 Long term (current) use of opiate analgesic; F31.81 Bipolar II disorder; M79.7 Fibromyalgia
CPT/HCPCS: 82043; 82570

== ENCOUNTER 2024-08-31 15:19 | Observation (INO) ==
--- NOTE | 2024-08-31 15:55 | ED Physician Documentation ---
PD HPI ALTERED MENTAL STATUS Stated complaint Stated Complaint: AMS, OD Chief complaint Chief Complaint: General History obtained from History obtained from: Patient, Family (family noted pt more sleepy and in bed since yesterday. No noted new meds. Pt takes own usual meds so family not able to corrobarate doses. ) and EMS (pt takes pain meds chronically and was alterd mentation since yesterday. SLeepy. Sats adequate and BS 212. Pt given Narcan with some rousing but not fully. Thrashing about. ) History of Present Illness Timing - onset: Today and Last night Timing - details: Gradual onset and Still present Quality / character: Less responsive Associated symptoms: Headache; No Fever or Cough Contributing factors: Diabetic and Other (chronic pain meds for fibromyalgia without known recent med changes. 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 Meds/Allgy Home Medications Ambulatory Orders Medication Instructions Recorded Confirmed levothyroxine 200 mcg tablet 200 mcg PO DAILY 06/16/13 07/04/24 (Levoxyl) insulin syringe-needle U-100 0.3 ##30 09/05/14 07/04/24 mL 29 gauge omeprazole 40 mg capsule,delayed 40 mg PO DAILY 09/15/22 07/04/24 release ondansetron 4 mg disintegrating 4 mg translingual Q6H PRN Nausea / 09/15/22 07/04/24 tablet Vomiting #10 tabs polyethylene glycol 3350 17 17 g PO DAILY PRN Constipation #1 09/15/22 07/04/24 gram/dose oral powder ea esomeprazole magnesium 40 mg 40 mg PO QDAY 04/03/24 07/04/24 capsule,delayed release naloxegol 25 mg tablet (Movantik) 25 mg PO QAM 04/03/24 07/04/24 gabapentin 300 mg capsule 300 mg PO TID #240 caps 05/11/24 07/04/24 quetiapine 200 mg tablet 600 mg (3 x 200 mg) PO QPM #270 05/18/24 07/04/24 tabs tizanidine 4 mg tablet 4 mg PO BID #60 tabs 06/05/24 07/04/24 lisinopril 10 mg tablet 10 mg PO QDAY #90 tabs 07/04/24 07/04/24 duloxetine 60 mg capsule,delayed 120 mg (2 x 60 mg) PO QDAY #180 07/18/24 release (Cymbalta) caps semaglutide 0.25 mg or 0.5 mg (2 0.5 mg (0.736 mL) subcut QWEEK #9 07/26/24 mg/3 mL) subcutaneous pen injector mL (Ozempic) morphine 30 mg tablet,extended 30 mg PO BID #60 tabs 08/05/24 release alprazolam 1 mg tablet 1 mg PO TID PRN anxiety #84 tabs 08/07/24 metformin 500 mg tablet 500 mg PO BIDWM #180 tabs 08/19/24 Allergies Allergies Allergy/AdvReac Type Severity Reaction Status Date / Time No Known Drug Allergies Allergy Verified 08/31/24 15:44 PFSH Active Problems All Active Problems (Updated 08/31/24 @ 18:37 by Shahid Islas MD) Acute hyponatremia (Acute) AMS (altered mental status) (Acute) Sleep apnea, unspecified (Acute) residential (current) use of opiate analgesic (Acute) Phobic anxiety disorder, unspecified (Acute) Post-traumatic stress disorder, unspecified (Acute) Spinal stenosis, lumbar region without neurogenic claudication (Acute) Spinal stenosis, cervical region (Acute) Gastro-esophageal reflux disease without esophagitis (Acute) Type 2 diabetes mellitus with diabetic autonomic (poly)neuropathy (Acute) Gigantomastia (Acute) Nicotine dependence, unspecified, uncomplicated (Acute) Caregiver burden (Acute) Type 2 diabetes mellitus without complications (Acute) Attention-deficit hyperactivity disorder, unspecified type (Acute) Alteration in comfort due to chronic pain (Acute) Back pain (Acute) Low back pain (Acute) Hip pain, right (Acute) Chronic pain (Acute) Hypothyroidism (Acute) COPD (chronic obstructive pulmonary disease) (Acute) Type 2 diabetes mellitus with hyperglycemia (Acute) Peripheral vascular disease (Acute) Facial pain (Acute) Weakness on left side of face (Acute) COPD exacerbation (Acute) Constipation (Acute) HTN (hypertension) (Acute) Bipolar 1 disorder (Acute) Hypercalcemia (Acute) Tachycardia (Acute) Uncontrolled diabetes mellitus (Acute) Uncontrolled type II diabetes mellitus (Acute) Medical History Medical History (Updated 08/31/24 @ 18:37 by Shahid Islas MD) Sprain of knee Pneumonia Hypoxia Dehydration Small bowel obstruction due to adhesions SBO (small bowel obstruction) Asthma exacerbation in COPD Bronchitis Narcotic withdrawal Green palsy Colitis, acute Neck muscle spasm Ingrown toenail Pyelonephritis Acute kidney injury Fall Dyspnea Sciatica, unspecified side Family History Family History (Updated 07/04/24 @ 16:52 by Luna White LPN) Mother Cancer Maternal grandfather Heart disease Maternal grandmother Heart disease Social History Social History Smoking Status: Former smoker If you are a former smoker, when did you quit? (Date/Year): 11/2018 - pt. vapes How many cigarettes a day do you smoke? (20 cigarettes=1 Pk): 15 Second hand tobacco smoke exposure: Yes Do you dip or chew tobacco?: No Do you vape?: No Patient requests smoking cessation consult: No Initiate information on smoking cessation: No Living arrangement: At home Marital Status: Living Condition: With spouse/s.o. and With family Support Person: Yes Relationship: Physical Activity: None Level: Independent Do you feel safe in your home environment?: Yes Suffered physical, verbal, emotional, or financial abuse?: No History of Abuse: No ETOH Use: None Substance Use: denies use Occupation: Disabled Retired: No Known occupational exposures/hazards (Current/Previous): None Known Service: No Are you following a diet prescribed by a doctor: No Are you following a special diet: Yes Special Diet Details: Diabetic diet. POLST Patient has POLST: No Exam Exam answers some questions limitedly after tactile stimulus. Constitutional normal general appearance and abnormal body habitus (obese) HENMT normocephalic and head/scalp atraumatic Eyes PERRL and EOMs intact bilaterally (midrange and reactive) Respiratory breath sounds equal bilaterally and normal respiratory effort Cardiovascular normal heart rate noted and regular rhythm noted Gastrointestinal abdomen soft to palpation, nontender to palpation and nondistended Neurology no focal motor deficit noted and no sensory deficits noted Psychiatry mental status abnormal (somnolent) Results Vitals Vitals: Vital Signs - 24 hr 08/31/24 15:20 08/31/24 15:44 08/31/24 17:19 Temperature 36.9 C Pulse Rate 126 H 98 Respiratory Rate 18 15 Blood Pressure 121/76 147/80 H O2 Saturation 97 95 O2 Source Room air Room air Pain Intensity 8 08/31/24 19:00 Temperature Pulse Rate 88 Respiratory Rate 15 Blood Pressure 169/117 H O2 Saturation 97 O2 Source Room air Pain Intensity Oxygen O2 Source Room air Labs Labs: Laboratory Tests 08/31/24 17:15 WBC 11.9 H RBC 4.45 Hgb 12.9 Hct 38.1 MCV 85.6 MCH 29.0 MCHC 33.9 RDW 12.6 Plt Count 290 MPV 8.6 Neut # (Auto) 10.0 H Lymph # (Auto) 1.2 L [place] # (Auto) 0.6 Eos # (Auto) 0.0 Baso # (Auto) 0.0 Absolute Nucleated RBC 0.00 Nucleated RBC % 0.0 Sodium 124 L Potassium 4.0 Chloride 92 L Carbon Dioxide 21 Anion Gap 11.0 BUN 19 Creatinine 0.8 Estimated GFR (MDRD) 73 L Glucose 290 H Lactic Acid 2.1 Calcium 9.2 Magnesium 1.5 L Total Bilirubin 0.4 AST 35 ALT 24 Alkaline Phosphatase 101 Total Protein 6.5 Albumin 4.1 Globulin 2.4 Albumin/Globulin Ratio 1.7 Lipase 15 Salicylates < 1.5 Acetaminophen < 0.1 Ethyl Alcohol < 10.0 PD Medical Decision Making ED course Complexity details: reviewed results (pt was incontinent of urine prior to arrival, so waiting to get urine sample. Utox ordered as well as alcohol. Sodium is low at 124 and prior levels were in 130s. This could cause altered mentation in conjunction with her usual meds. ), considered differential (pt without obvious recent illness per family. Consider inappropriate med dosing (accidental or intentional), illness, infectious, electrolytes, among others. ) and d/w patient ED course: EMS Medics report some mild improvement with Narcan, but that only can speak to the patient taking chronic pain meds and that portion of her alertness is changed. It does not attest to that being the cause of her acute altered menation. The low sodium likley factors more. Talked with Hospitalist and asked for headt CT, which I did and did not acute problems. Pt is still drowsy/lethargic, wut has good oxygenation and appears normal ventilation. Discharge Plan Discharge Patient Disposition: ED Place in Observation Condition: Stable Clinical Impression: AMS (altered mental status), Acute hyponatremia Prescriptions: No Action gabapentin 300 mg capsule 300 mg PO TID Qty: 240 5RF Rx Instructions: take 3 capsules by mouth every morning, 2 capsules every afternoon, and 4 capsules every night at bedtime. quetiapine 200 mg tablet 600 mg PO QPM Qty: 270 3RF tizanidine 4 mg tablet 4 mg PO BID Qty: 60 5RF duloxetine [Cymbalta] 60 mg capsule,delayed release(DR/EC) 120 mg PO QDAY Qty: 180 3RF Ozempic 0.25 mg or 0.5 mg (2 mg/3 mL) pen injector 0.5 mg subcut QWEEK Qty: 9 3RF Rx Instructions: for 4 weeks morphine 30 mg tablet extended release 30 mg PO BID Qty: 60 0RF alprazolam 1 mg tablet 1 mg PO TID PRN (Reason: anxiety) Qty: 84 2RF metformin 500 mg tablet 500 mg PO BIDWM Qty: 180 3RF levothyroxine [Levoxyl] 200 MCG tablet 200 mcg PO DAILY (DME) insulin syringe-needle U-100 1 EACH syringe 1 ea miscellaneous DAILY Qty: 30 0RF omeprazole 40 MG capsule,delayed release(DR/EC) 40 mg PO DAILY polyethylene glycol 3350 238 GM powder 17 g PO DAILY PRN (Reason: Constipation) Qty: 1 0RF ondansetron 4 MG tablet,disintegrating 4 mg translingual Q6H PRN (Reason: Nausea / Vomiting) Qty: 10 0RF lisinopril 10 mg tablet 10 mg PO QDAY Qty: 90 0RF Movantik 25 mg tablet 25 mg PO QAM Rx Instructions: must be taken on empty stomach; no food 1 hr after or 2-3 hrs before dose esomeprazole magnesium 40 mg capsule,delayed release(DR/EC) 40 mg PO QDAY Patient Comments: TAKE 1 CAPSULE BY MOUTH EVERY MORNING FOR HEARTBURN Print Language: [place] Islander Stand Alone Forms: PCP List
[2024-08-31 17:21] LABS: BASOPHILS % (AUTO) 0.3 %; EOSINOPHILS % (AUTO) 0.3 %; HCT - HEMATOCRIT 38.1 % (37.0-47.0); HGB - HEMOGLOBIN 12.9 g/dL (12.0-16.0); LYMPHOCYTES # (AUTO) 1.2 10^3/uL (1.5-3.5); LYMPHOCYTES % (AUTO) 10.1 %; MEAN CORPUSCULAR HGB CONC 33.9 g/dL (32.0-36.0); MEAN CORPUSCULAR VOLUME 85.6 fL (81.0-99.0); MEAN PLATELET VOLUME 8.6 fL (7.9-10.8); MONOCYTES # (AUTO) 0.6 10^3/uL (0.0-1.0); MONOCYTES % (AUTO) 4.7 %; NEUTROPHILS % (AUTO) 84.1 %; PLT - PLATELET COUNT 290 10^3/uL (130-450); RED BLOOD COUNT 4.45 10^6/uL (4.20-5.40); RED CELL DISTRIBUTION WIDTH 12.6 % (12.0-15.0); WHITE BLOOD COUNT 11.9 x10^3/uL (4.8-10.8)
[2024-08-31 17:37] LABS: ALBUMIN 4.1 g/dL (3.2-5.5); ALBUMIN/GLOBULIN RATIO 1.7 (1.0-2.2); ALKALINE PHOSPHATASE 101 IU/L (42-121); ALT ALANINE AMINOTRANSFERASE 24 IU/L (10-60); AST ASPARTATE AMINOTRANSFERASE 35 IU/L (10-42); BILIRUBIN,TOTAL 0.4 mg/dL (0.2-1.0); BUN - BLOOD UREA NITROGEN 19 mg/dL (6-20); CALCIUM 9.2 mg/dL (8.5-10.3); CARBON DIOXIDE - CO2 21 mmol/L (21-32); CHLORIDE 92 mmol/L (101-111); CREATININE 0.8 mg/dL (0.6-1.3); ETOH - ETHANOL < 10.0 mg/dL; GFR - MDRD 73 (>89); GLUCOSE 290 mg/dL (74-104); LIPASE 15 U/L (11-82); MAGNESIUM 1.5 mg/dL (1.7-2.3); SODIUM 124 mmol/L (135-145); TOTAL PROTEIN 6.5 g/dL (6.4-8.9)
[2024-08-31 17:38] LABS: ACETAMINOPHEN < 0.1 ug/mL; SALICYLATE < 1.5 mg/dL
[2024-08-31] MEDS: SODIUM CHLORIDE 0.9% 1,000 ML IV STA (18:56)
--- NOTE | 2024-08-31 18:58 | CT Report ---
PROCEDURE: CT Head WO INDICATIONS: altered ms TECHNIQUE: Noncontrast 4.5 mm thick angled axial sections acquired from the foramen magnum to the vertex. For r adiation dose reduction, the following was used: automated exposure control, adjustment of mA and/or kV according to patient size. COMPARISON: CT head 11/07/2016. FINDINGS: Image quality: Excellent. CSF spaces: Basal cisterns are patent. No extra-axial fluid collections. Ventricles are normal in size and shape. Brain: Focal soft tissue attenuation within the sella and adjacent suprasellar space. No midline hebert ft. No intracranial masses or hemorrhage. Lopez-white matter interface is normal. Skull and face: Calvarium and visualized facial bones are intact, without suspicious lesions. Sinuses: Visualized sinuses and mastoids are clear. IMPRESSION: 1.No acute intracranial pathology. 2.Focal soft tissue prominence in the sella and suprasellar region. Recommend MRI for further evaluat ion if there is no contraindication, preferably contrast enhanced pituitary protocol MRI. Reviewed by: Raghavendra Arellano MD on 08/31/2024 6:57 PM PDT Approved by: Raghavendra Arellano MD on 08/31/2024 6:57 PM PDT Station ID: [id number]
--- NOTE | 2024-08-31 21:43 | HISTORY & PHYSICAL EXAMINATION ---
Chief Complaint Chief Complaint Chief Complaint: AMS History of Present Illness Admitted From Admitted From:: home History Obtained From Records Reviewed: PCP visits History obtained from: Patient and SO History of Present Illness HPI Comment/Other: 58-year-old female with a past medical history of type 2 diabetes with neuropathy, nicotine dependence, GERD, spinal stenosis with chronic pain, long- term opiate use, hypothyroidism, hypertension, bipolar disorder presents to the emergency department with complaint of altered mental status via EMS. Her significant other states she has been in the bed for about 24 hours. They also tell me she has had a headache that has been present for 2 weeks. It is retro- orbital and bitemporal. She relates this to her chronic neck pain. She has had several neck surgeries. She states that her right arm is tingling but only when she goes to sleep. She is having nausea and vomiting. Her significant other tells me that she has had several falls or near falls in the last 2 weeks. She takes extended release morphine 30 mg twice daily and Xanax 1 mg 3 times daily. Her significant other tells me that she has not taken anything in addition to these medications. She is taking her medications as prescribed. She has been taking extra Advil to try to help with her migraine. She denies any cough any fevers. She has her chronic neck pain and stiffness which is not any worse. She states that she is sensitive to light but she does not have any visual disturbances. She has had nausea with no vomiting. She has chronic constipation which is not any worse than usual. She denies any extremity swelling she is not having any shortness of breath she is not having any paroxysmal nocturnal dyspnea. Socially she does not drink alcohol she vapes nicotine but does not use any marijuana products. She lives with her partner of 28 years. Her CODE STATUS is DNR/DNI. Her significant other affirms this. Meds/Allgy Home Medications Ambulatory Orders Medication Instructions Recorded Confirmed levothyroxine 200 mcg tablet 200 mcg PO DAILY 06/16/13 07/04/24 (Levoxyl) insulin syringe-needle U-100 0.3 ##30 09/05/14 07/04/24 mL 29 gauge omeprazole 40 mg capsule,delayed 40 mg PO DAILY 09/15/22 07/04/24 release ondansetron 4 mg disintegrating 4 mg translingual Q6H PRN Nausea / 09/15/22 07/04/24 tablet Vomiting #10 tabs polyethylene glycol 3350 17 17 g PO DAILY PRN Constipation #1 09/15/22 07/04/24 gram/dose oral powder ea esomeprazole magnesium 40 mg 40 mg PO QDAY 04/03/24 07/04/24 capsule,delayed release naloxegol 25 mg tablet (Movantik) 25 mg PO QAM 04/03/24 07/04/24 gabapentin 300 mg capsule 300 mg PO TID #240 caps 05/11/24 07/04/24 quetiapine 200 mg tablet 600 mg (3 x 200 mg) PO QPM #270 05/18/24 07/04/24 tabs tizanidine 4 mg tablet 4 mg PO BID #60 tabs 06/05/24 07/04/24 lisinopril 10 mg tablet 10 mg PO QDAY #90 tabs 07/04/24 07/04/24 duloxetine 60 mg capsule,delayed 120 mg (2 x 60 mg) PO QDAY #180 07/18/24 release (Cymbalta) caps semaglutide 0.25 mg or 0.5 mg (2 0.5 mg (0.736 mL) subcut QWEEK #9 07/26/24 mg/3 mL) subcutaneous pen injector mL (Ozempic) morphine 30 mg tablet,extended 30 mg PO BID #60 tabs 08/05/24 release alprazolam 1 mg tablet 1 mg PO TID PRN anxiety #84 tabs 08/07/24 metformin 500 mg tablet 500 mg PO BIDWM #180 tabs 08/19/24 Allergies Allergies Allergy/AdvReac Type Severity Reaction Status Date / Time No Known Drug Allergies Allergy Verified 08/31/24 15:44 PFSH Active Problems All Active Problems (Updated 08/31/24 @ 21:59 by CHRISTINA Baron) Leukocytosis (Acute) Acute hyponatremia (Acute) AMS (altered mental status) (Acute) Sleep apnea, unspecified (Acute) terminal carman (current) use of opiate analgesic (Acute) Phobic anxiety disorder, unspecified (Acute) Post-traumatic stress disorder, unspecified (Acute) Spinal stenosis, lumbar region without neurogenic claudication (Acute) Spinal stenosis, cervical region (Acute) Gastro-esophageal reflux disease without esophagitis (Acute) Type 2 diabetes mellitus with diabetic autonomic (poly)neuropathy (Acute) Gigantomastia (Acute) Nicotine dependence, unspecified, uncomplicated (Acute) Caregiver burden (Acute) Type 2 diabetes mellitus without complications (Acute) Attention-deficit hyperactivity disorder, unspecified type (Acute) Alteration in comfort due to chronic pain (Acute) Back pain (Acute) Low back pain (Acute) Hip pain, right (Acute) Chronic pain (Acute) Hypothyroidism (Acute) COPD (chronic obstructive pulmonary disease) (Acute) Type 2 diabetes mellitus with hyperglycemia (Acute) Peripheral vascular disease (Acute) Facial pain (Acute) Weakness on left side of face (Acute) COPD exacerbation (Acute) Constipation (Acute) HTN (hypertension) (Acute) Bipolar 1 disorder (Acute) Hypercalcemia (Acute) Tachycardia (Acute) Uncontrolled diabetes mellitus (Acute) Uncontrolled type II diabetes mellitus (Acute) Medical History Medical History (Updated 08/31/24 @ 21:59 by CHRISTINA Baron) Sprain of knee Pneumonia Hypoxia Dehydration Small bowel obstruction due to adhesions SBO (small bowel obstruction) Asthma exacerbation in COPD Bronchitis Narcotic withdrawal Green palsy Colitis, acute Neck muscle spasm Ingrown toenail Pyelonephritis Acute kidney injury Fall Dyspnea Sciatica, unspecified side Family History Family History (Updated 07/04/24 @ 16:52 by Luna White LPN) Mother Cancer Maternal grandfather Heart disease Maternal grandmother Heart disease Social History Social History Smoking Status: Former smoker If you are a former smoker, when did you quit? (Date/Year): 11/2018 - pt. vapes How many cigarettes a day do you smoke? (20 cigarettes=1 Pk): 15 Second hand tobacco smoke exposure: Yes Do you dip or chew tobacco?: No Do you vape?: No Patient requests smoking cessation consult: No Initiate information on smoking cessation: No Living arrangement: At home Marital Status: Living Condition: With spouse/s.o. and With family Support Person: Yes Relationship: Physical Activity: None Level: Independent Do you feel safe in your home environment?: Yes Suffered physical, verbal, emotional, or financial abuse?: No History of Abuse: No ETOH Use: None Substance Use: denies use Occupation: Disabled Retired: No Known occupational exposures/hazards (Current/Previous): None Known Service: No Are you following a diet prescribed by a doctor: No Are you following a special diet: Yes Special Diet Details: Diabetic diet. POLST Patient has POLST: No POLST Status: DNR Review of Systems Status of ROS: 10 or more systems reviewed and unremarkable except as noted in history and below Prior Level of Functionality: Independent in all activities Exam Constitutional normal general appearance and no apparent distress lying on the bed with eyes closed. HENMT normocephalic, hearing grossly normal bilaterally, external ears normal and oral mucous membranes normal abrasion on the tip of her nose Eyes PERRL, EOMs intact bilaterally, conjunctivae normal and no scleral icterus Neck/C-Spine visual inspection normal, trachea midline and no meningeal signs Lymph no lymphadenopathy noted Chest inspection of chest normal Respiratory breath sounds equal bilaterally and normal respiratory effort Cardiovascular normal heart rate noted hypertensive Gastrointestinal abdomen normal to inspection and abdomen soft to palpation Extremities normal to inspection, normal to palpation, no tenderness and full ROM Neurology 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 ) GCS 14, opens eyes to voice. Psychiatry mental status grossly normal, oriented x3, thought process normal and cooperative Skin skin color normal and no rash Conclusion/Plan Problem List (1) AMS (altered mental status): Plan: Presents with headache for 2 weeks and altered mental status. Family states that she has not taken more of her chronic opiates or benzodiazepines and is prescribed.She does not have any focal findings on her neurological exam. She has mildly slurred speech and seems to have an altered level of consciousness.She has a negative CT of the head. Comment is made about soft tissue prominence in the sella and suprasellar region. Radiologist makes request for contrast-enhanced enhanced pituitary protocol MRI. I will place the patient on telemetry. I will order neurochecks every 4 hours. Will observe overnight on telemetry. Will obtain MRI of the brain in the morning. Will treat her headache with sumatriptan and Toradol. (2) Acute hyponatremia: Plan: She is on duloxetine. I do not have many Historical labs to look at but it looks like she does have some chronic hyponatremia as low as 130 in the past. 124 on admission today we will recheck sodium in the morning. I have placed the patient on a 1500 mL free water fluid restriction. I am also placing her on a regular diet so that she gets some dietary sodium.Laboratory Tests 06/23/23 10/12/23 02/21/24 13:22 09:50 11:19 Sodium 130 L 134 L 132 L 08/31/24 17:15 Sodium 124 L (3) terminal carman (current) use of opiate analgesic: Plan: PDMP reviewed. She takes 30 mg of long-acting morphine twice daily. She takes 1 mg of Xanax 3 times daily. She augments with [id number] pain relievers. This is for chronic neck and back pain. (4) Nicotine dependence, unspecified, uncomplicated: Plan: She vapes nicotine at baseline. Will order NicoDerm patch as needed. Qualifiers: Nicotine product type: cigarettes Qualified Code(s): F17.210 - Nicotine dependence, cigarettes, uncomplicated (5) Type 2 diabetes mellitus without complications: Plan: She is on Ozempic. She takes this every Wednesday. Last A1c 10.4% in February 2024. I have ordered repeat A1c for the a.m. (6) HTN (hypertension): Plan: Selected Entries 08/31/24 15:20 08/31/24 20:21 Blood Pressure 121/76 170/94 H She is hypertensive in the emergency department. She takes lisinopril 10 mg a day in the outpatient environment. I will give her as needed IV hydralazine overnight as needed f for blood pressure greater than 180.. (7) Leukocytosis: Plan: White blood cell count 11.9. Urinalysis is pending. I have requested straight cath should this be necessary to get this done. Will monitor leukocytosis with CBC in the AM. Plan Patient was discussed with ED physician Dr. Islas. Decision was made to admit this patient for altered mental status and headache. Will obtain MRI of the brain to workup for suprasellar mass. Will monitor for further neurologic changes. I will not reorder her long-acting opiates. Rather I will give her short acting opiates as needed. Will also use additional medications to help with her headache. I have spent 80 minutes in the care of this patient today. This includes time [id number], review and ordering of diagnostic imaging and laboratory studies and consultation with other providers.. . Lab Results Lab results reviewed: Yes 08/31/24 17:15 08/31/24 17:15 Core Measures Anticipated LOS I expect patient to be DC'd or transferred within 96 hours.: Yes Issues Hospital Issues and Management Plan: See above DVT/VTE - Prophylaxis VTE/DVT Device ordered at admit?: Yes VTE/DVT Prophylaxis med ordered at admit?: Yes
[2024-08-31] MEDS ORDERED: SODIUM CHLORIDE FLUSH 0.9% 10 ML SYRINGE IVP PRN (21:46)
[2024-08-31] MEDS ORDERED: ACETAMINOPHEN 325 MG TABLET PO PRN (21:46)
[2024-08-31] MEDS ORDERED: IBUPROFEN 600 MG TABLET PO PRN (21:46)
[2024-08-31] MEDS ORDERED: ONDANSETRON ODT 4 MG TABLET TL PRN (21:46)
[2024-08-31] MEDS ORDERED: ACETAMINOPHEN 1,000 MG/100 ML 1,000 MG/100 ML BAG IV PRN (22:01)
[2024-08-31] MEDS ORDERED: LORazepam 2 MG/ML VIAL IVP PRN (22:06)
[2024-08-31 23:42] LABS: BILIRUBIN,URINE NEGATIVE (NEGATIVE); GLUCOSE, URINE (UA) 500 mg/dL (NEGATIVE); KETONES,URINE (UA) NEGATIVE (NEGATIVE); LEUKOCYTE ESTERASE, URINE NEGATIVE (NEGATIVE); NITRITE,URINE NEGATIVE (NEGATIVE); OCCULT BLOOD,URINE NEGATIVE (NEGATIVE); PROTEIN,URINE NEGATIVE (NEGATIVE); UROBILINOGEN,URINE 0.2 (NORMAL) E.U./dL (NORMAL)
[2024-08-31] MEDS: SODIUM CHLORIDE FLUSH 0.9% 10 ML SYRINGE IVP SCH (23:44)
[2024-08-31] MEDS: oxyCODONE 5 MG TABLET PO PRN (23:49)
[2024-08-31 23:57] LABS: AMPHETAMINE SCREEN,URINE NEGATIVE (NEGATIVE); BARBITURATE SCREEN,UR NEGATIVE (NEGATIVE); BENZODIAZEPINES SCREEN, URINE POSITIVE (NEGATIVE); BUPRENORPHINE SCREEN, URINE NEGATIVE (NEGATIVE); CLARITY,URINE CLEAR (CLEAR); COCAINE SCREEN URINE NEGATIVE (NEGATIVE); METHADONE SCREEN, URINE NEGATIVE (NEGATIVE); METHAMPHETAMINES SCREEN, URINE NEGATIVE (NEGATIVE); OPIATE SCREEN, URINE POSITIVE (NEGATIVE); OXYCODONE SCREEN, URINE NEGATIVE (NEGATIVE); THC CANNABINOID SCREEN, URINE NEGATIVE (NEGATIVE); TRICYCLIC ANTIDEPRESSANT,URINE POSITIVE (NEGATIVE)
[2024-09-01] MEDS: SUMAtriptan 25 MG TABLET PO PRN (00:40)
[2024-09-01] MEDS: KETOROLAC 30 MG/ML VIAL IVP PRN (01:10)
[2024-09-01 06:09] LABS: BASOPHILS % (AUTO) 0.2 %; EOSINOPHILS # (AUTO) 0.1 10^3/uL (0.0-0.7); EOSINOPHILS % (AUTO) 1.2 %; HGB - HEMOGLOBIN 12.5 g/dL (12.0-16.0); LYMPHOCYTES # (AUTO) 2.2 10^3/uL (1.5-3.5); LYMPHOCYTES % (AUTO) 26.6 %; MEAN CORPUSCULAR HEMOGLOBIN 29.3 pg (27.0-31.0); MEAN CORPUSCULAR HGB CONC 34.7 g/dL (32.0-36.0); MEAN CORPUSCULAR VOLUME 84.3 fL (81.0-99.0); MEAN PLATELET VOLUME 8.6 fL (7.9-10.8); MONOCYTES # (AUTO) 0.5 10^3/uL (0.0-1.0); MONOCYTES % (AUTO) 6.1 %; NEUTROPHILS # (AUTO) 5.5 10^3/uL (1.5-6.6); NEUTROPHILS % (AUTO) 65.5 %; PLT - PLATELET COUNT 289 10^3/uL (130-450); RED BLOOD COUNT 4.27 10^6/uL (4.20-5.40); RED CELL DISTRIBUTION WIDTH 12.9 % (12.0-15.0); WHITE BLOOD COUNT 8.4 x10^3/uL (4.8-10.8)
[2024-09-01 06:22] LABS: CALCIUM 8.9 mg/dL (8.5-10.3); CREATININE 0.7 mg/dL (0.6-1.3); POTASSIUM 4.1 mmol/L (3.5-4.5)
[2024-09-01 08:23] LABS: ESTIMATED AVERAGE GLUCOSE 258 mg/dL (70-100); HEMOGLOBIN A1c% 10.6 % (4.27-6.07)
[2024-09-01] MEDS: NICOTINE 21 MG PATCH TOP SCH (08:31)
[2024-09-01] MEDS: INSULIN LISPRO 300 UNIT/3 ML PEN SUBQ SCH (08:32)
--- NOTE | 2024-09-01 09:04 | PHARMACY PROGRESS NOTE ---
Best Possible Medication History Admit Date and Time: 08/31/242121 Home Medications Medication Instructions Recorded Confirmed Type levothyroxine 200 mcg tablet 200 mcg PO DAILY 06/16/13 09/01/24 History (Levoxyl) insulin syringe-needle U-100 0.3 ##30 09/05/14 07/04/24 Rx mL 29 gauge ondansetron 4 mg disintegrating 4 mg translingual Q6H PRN Nausea / 09/15/22 09/01/24 Rx tablet Vomiting #10 tabs polyethylene glycol 3350 17 17 g PO DAILY PRN Constipation #1 09/15/22 09/01/24 Rx gram/dose oral powder ea esomeprazole magnesium 40 mg 40 mg PO QDAY 04/03/24 09/01/24 History capsule,delayed release naloxegol 25 mg tablet (Movantik) 25 mg PO QAM 04/03/24 09/01/24 History gabapentin 300 mg capsule 300 mg PO TID #240 caps 05/11/24 09/01/24 Rx quetiapine 200 mg tablet 600 mg (3 x 200 mg) PO QPM #270 05/18/24 09/01/24 Rx tabs tizanidine 4 mg tablet 4 mg PO BID #60 tabs 06/05/24 09/01/24 Rx lisinopril 10 mg tablet 10 mg PO QDAY #90 tabs 07/04/24 09/01/24 Rx duloxetine 60 mg capsule,delayed 120 mg (2 x 60 mg) PO QDAY #180 07/18/24 09/01/24 Rx release (Cymbalta) caps semaglutide 0.25 mg or 0.5 mg (2 0.5 mg (0.736 mL) subcut QWEEK #9 07/26/24 09/01/24 Rx mg/3 mL) subcutaneous pen injector mL (Ozempic) morphine 30 mg tablet,extended 30 mg PO BID #60 tabs 08/05/24 09/01/24 Rx release alprazolam 1 mg tablet 1 mg PO TID PRN anxiety #84 tabs 08/07/24 09/01/24 Rx metformin 500 mg tablet 500 mg PO BIDWM #180 tabs 08/19/24 09/01/24 Rx Lactobacillus acidophilus 10 100 mmu cells PO DAILY 09/01/24 09/01/24 History billion cell capsule (Probacap) atorvastatin 10 mg tablet 10 mg PO DAILY 09/01/24 09/01/24 History ibuprofen 200 mg capsule (Advil 400 mg PO QID PRN pain 09/01/24 09/01/24 History Migraine) Processed by: Pharmacy Medications reviewed in ED?: No Medication History completed: Yes Patient Interview: Completed Secondary Source(s): Insurance records BPM Statement: Per T patient interview reviewing [employer] insurance records. As the person ultimately responsible for medication therapy, providers are able to order a medication from an existing home medication list in [facility] via the "Reconcile Routine" prior to Confirmation of that medication by vp software support. Such practice is discouraged except when the physician, in their clinical judgment, deems that a medical need exists for a medication without regard to previous use.
[2024-09-01] MEDS: MORPHINE 2 MG/ML CARPUJECT IVP PRN (10:35)
[2024-09-01] MEDS ORDERED: GADOTERATE MEGLUMINE 10 MMOL/20 ML VIAL ONE (10:55)
[2024-09-01] MEDS ORDERED: ALPRAZolam 0.25 MG TABLET PO PRN (11:38)
--- NOTE | 2024-09-01 11:40 | PROVIDER PROGRESS NOTE ---
Subjective Prog Note Date Prog Note Date: 09/01/24 Current Medications Current Medications Current Medications: Current Medications Generic Name Dose Route Start Last Admin Trade Name Freq PRN Reason Stop Dose Admin Acetaminophen 650 mg 08/31/24 21:46 Acetaminophen 325 Mg Tablet PO Q4HR PRN Pain 1 to 4, or Fever Acetaminophen 1,000 mg in 100 mls @ 400 mls/hr 08/31/24 22:01 Acetaminophen IV Q6HR PRN Moderate Pain (Level 4-6) Insulin Human Lispro 1 - 5 unit 09/01/24 08:00 09/01/24 08:32 Insulin Lispro 300 Unit/3 Ml Pen SUBQ 1 unit 0800,1200,1700,2100 JIMBO Administration Protocol Ketorolac Tromethamine 30 mg 08/31/24 22:01 09/01/24 01:10 Ketorolac 30 Mg/Ml Vial IVP 09/05/24 22:00 30 mg Q6HR PRN Administration Severe Pain (Level 7-10) Lorazepam 0.5 mg 08/31/24 22:06 Lorazepam 2 Mg/Ml Vial IVP Q4H PRN Anxiety Morphine Sulfate 2 mg 08/31/24 22:10 09/01/24 10:35 Morphine 2 Mg/Ml Carpuject IVP 2 mg Q2HR PRN Administration Severe Pain (Level 7-10) Nicotine 1 patch 09/01/24 09:00 09/01/24 08:31 Nicotine 21 Mg Patch TOP 1 patch DAILY JIMBO Administration Ondansetron HCl 4 mg 08/31/24 21:46 Ondansetron Odt 4 Mg Tablet TL Q6HR PRN Nausea / Vomiting Oxycodone HCl 5 mg 08/31/24 21:46 09/01/24 05:22 Oxycodone 5 Mg Tablet PO 5 mg Q4HR PRN Administration Pain 5 to 7 Sodium Chloride 10 ml 08/31/24 21:46 Sodium Chloride Flush 0.9% 10 Ml Syringe IVP PRN PRN NEEDED PER PROVIDER ORDERS Sodium Chloride 10 ml 09/01/24 01:00 09/01/24 10:13 Sodium Chloride Flush 0.9% 10 Ml Syringe IVP 10 ml 0100,0900,1700 JIMBO Administration Sumatriptan Succinate 25 mg 08/31/24 22:01 09/01/24 00:40 Sumatriptan 25 Mg Tablet PO 09/07/24 22:00 25 mg ONCE PRN Administration HEADACHE Objective Vital Signs/Intake & Output Vital Signs: Vital Signs x48h Temp Pulse Resp BP Pulse Ox 09/01/24 08:14 36.6 C 78 18 161/83 H 97 09/01/24 04:24 36.5 C 75 20 175/87 H 96 Intake & Output: Intake & Output 08/29/24 08/30/24 08/31/24 09/01/24 23:59 23:59 23:59 23:59 Intake Total 1000 / 1000 700 / 700 Output Total 1200 / 1200 Balance -200 / -200 700 / 700 Weight (kg) 81 kg Lab Results 09/01/24 05:56 09/01/24 05:56 Other Labs: Lab Results x24hrs 09/01/24 09/01/24 09/01/24 Range/Units 07:41 05:56 03:56 WBC 8.4 (4.8-10.8) x10^3/uL RBC 4.27 (4.20-5.40) 10^6/uL Hgb 12.5 (12.0-16.0) g/dL Hct 36.0 L (37.0-47.0) % MCV 84.3 (81.0-99.0) fL MCH 29.3 (27.0-31.0) pg MCHC 34.7 (32.0-36.0) g/dL RDW 12.9 (12.0-15.0) % Plt Count 289 (130-450) 10^3/uL MPV 8.6 (7.9-10.8) fL Neut # (Auto) 5.5 (1.5-6.6) 10^3/uL Lymph # (Auto) 2.2 (1.5-3.5) 10^3/uL [place]on # (Auto) 0.5 (0.0-1.0) 10^3/uL Eos # (Auto) 0.1 (0.0-0.7) 10^3/uL Baso # (Auto) 0.0 (0.0-0.1) 10^3/uL Absolute Nucleated RBC 0.00 x10^3/uL Nucleated RBC % 0.0 /100WBC Sodium 130 L (135-145) mmol/L Potassium 4.1 (3.5-4.5) mmol/L Chloride 97 L (101-111) mmol/L Carbon Dioxide 25 (21-32) mmol/L Anion Gap 8.0 (6-13) BUN 15 (6-20) mg/dL Creatinine 0.7 (0.6-1.3) mg/dL Estimated GFR (MDRD) 86 L (>89) Glucose 144 H (74-104) mg/dL POC Whole Bld Glucose 145 138 (70-100) mg/dL Estimat Average Glucose 258 H (70-100) mg/dL Hemoglobin A1c % 10.6 H (4.27-6.07) % Lactic Acid (0.5-2.2) mmol/L Calcium 8.9 (8.5-10.3) mg/dL Magnesium (1.7-2.3) mg/dL Total Bilirubin (0.2-1.0) mg/dL AST (10-42) IU/L ALT (10-60) IU/L Alkaline Phosphatase (42-121) IU/L Total Protein (6.4-8.9) g/dL Albumin (3.2-5.5) g/dL Globulin (2.1-4.2) g/dL Albumin/Globulin Ratio (1.0-2.2) Lipase (11-82) U/L Urine Color Urine Clarity (CLEAR) Urine pH (5.0-7.5) PH Ur Specific [place] (1.002-1.030) Urine Protein (NEGATIVE) mg/dL Urine Glucose (UA) (NEGATIVE) mg/dL Urine Ketones (NEGATIVE) mg/dL Urine Occult Blood (NEGATIVE) Urine Nitrite (NEGATIVE) Urine Bilirubin (NEGATIVE) Urine Urobilinogen (NORMAL) E.U./dL Ur Leukocyte Esterase (NEGATIVE) Ur Microscopic Review Urine Culture Comments Salicylates mg/dL Urine Opiates Screen (NEGATIVE) Ur Buprenorphine Scrn (NEGATIVE) Ur Oxycodone Screen (NEGATIVE) Urine Methadone Screen (NEGATIVE) Acetaminophen ug/mL Ur Barbiturates Screen (NEGATIVE) Ur Tricyclics Screen (NEGATIVE) Ur Phencyclidine Scrn (NEGATIVE) Ur Amphetamine Screen (NEGATIVE) U Methamphetamines Scrn (NEGATIVE) U Benzodiazepines Scrn (NEGATIVE) Urine Cocaine Screen (NEGATIVE) U Cannabinoids Screen (NEGATIVE) Ur Drug Screen Comment Ethyl Alcohol mg/dL 08/31/24 08/31/24 Range/Units 23:15 17:15 WBC 11.9 H (4.8-10.8) x10^3/uL RBC 4.45 (4.20-5.40) 10^6/uL Hgb 12.9 (12.0-16.0) g/dL Hct 38.1 (37.0-47.0) % MCV 85.6 (81.0-99.0) fL MCH 29.0 (27.0-31.0) pg MCHC 33.9 (32.0-36.0) g/dL RDW 12.6 (12.0-15.0) % Plt Count 290 (130-450) 10^3/uL MPV 8.6 (7.9-10.8) fL Neut # (Auto) 10.0 H (1.5-6.6) 10^3/uL Lymph # (Auto) 1.2 L (1.5-3.5) 10^3/uL [place] # (Auto) 0.6 (0.0-1.0) 10^3/uL Eos # (Auto) 0.0 (0.0-0.7) 10^3/uL Baso # (Auto) 0.0 (0.0-0.1) 10^3/uL Absolute Nucleated RBC 0.00 x10^3/uL Nucleated RBC % 0.0 /100WBC Sodium 124 L (135-145) mmol/L Potassium 4.0 (3.5-4.5) mmol/L Chloride 92 L (101-111) mmol/L Carbon Dioxide 21 (21-32) mmol/L Anion Gap 11.0 (6-13) BUN 19 (6-20) mg/dL Creatinine 0.8 (0.6-1.3) mg/dL Estimated GFR (MDRD) 73 L (>89) Glucose 290 H (74-104) mg/dL POC Whole Bld Glucose (70-100) mg/dL Estimat Average Glucose (70-100) mg/dL Hemoglobin A1c % (4.27-6.07) % Lactic Acid 2.1 (0.5-2.2) mmol/L Calcium 9.2 (8.5-10.3) mg/dL Magnesium 1.5 L (1.7-2.3) mg/dL Total Bilirubin 0.4 (0.2-1.0) mg/dL AST 35 (10-42) IU/L ALT 24 (10-60) IU/L Alkaline Phosphatase 101 (42-121) IU/L Total Protein 6.5 (6.4-8.9) g/dL Albumin 4.1 (3.2-5.5) g/dL Globulin 2.4 (2.1-4.2) g/dL Albumin/Globulin Ratio 1.7 (1.0-2.2) Lipase 15 (11-82) U/L Urine Color YELLOW Urine Clarity CLEAR (CLEAR) Urine pH 7.0 (5.0-7.5) PH Ur Specific [place] 1.020 (1.002-1.030) Urine Protein NEGATIVE (NEGATIVE) mg/dL Urine Glucose (UA) 500 H (NEGATIVE) mg/dL Urine Ketones NEGATIVE (NEGATIVE) mg/dL Urine Occult Blood NEGATIVE (NEGATIVE) Urine Nitrite NEGATIVE (NEGATIVE) Urine Bilirubin NEGATIVE (NEGATIVE) Urine Urobilinogen 0.2 (NORMAL) (NORMAL) E.U./dL Ur Leukocyte Esterase NEGATIVE (NEGATIVE) Ur Microscopic Review NOT INDICATED Urine Culture Comments NOT INDICATED Salicylates < 1.5 mg/dL Urine Opiates Screen POSITIVE H (NEGATIVE) Ur Buprenorphine Scrn NEGATIVE (NEGATIVE) Ur Oxycodone Screen NEGATIVE (NEGATIVE) Urine Methadone Screen NEGATIVE (NEGATIVE) Acetaminophen < 0.1 ug/mL Ur Barbiturates Screen NEGATIVE (NEGATIVE) Ur Tricyclics Screen POSITIVE H (NEGATIVE) Ur Phencyclidine Scrn NEGATIVE (NEGATIVE) Ur Amphetamine Screen NEGATIVE (NEGATIVE) U Methamphetamines Scrn NEGATIVE (NEGATIVE) U Benzodiazepines Scrn POSITIVE H (NEGATIVE) Urine Cocaine Screen NEGATIVE (NEGATIVE) U Cannabinoids Screen NEGATIVE (NEGATIVE) Ur Drug Screen Comment CUTOFF CONC BELOW: Ethyl Alcohol < 10.0 mg/dL Assessment/Plan Problem List (1) AMS (altered mental status): (2) Acute hyponatremia: (3) long-term (current) use of opiate analgesic: (4) Nicotine dependence, unspecified, uncomplicated: Qualifiers: Nicotine product type: cigarettes Qualified Code(s): F17.210 - Nicotine dependence, cigarettes, uncomplicated (5) Type 2 diabetes mellitus without complications: (6) HTN (hypertension): (7) Leukocytosis:
[2024-09-01] MEDS: GADOTERATE MEGLUMINE 10 MMOL/20 ML VIAL IVP ONE (12:15)
[2024-09-01 12:22] VITALS: BP 177/92; TEMP 97.7; O2SAT 98
--- NOTE | 2024-09-01 12:38 | MRI Report ---
PROCEDURE: MRI Brain W/WO INDICATIONS: possible pitutary mass CONTRAST: Clariscan 15.0 ml TECHNIQUE: Noncontrast axial T1 spin echo, axial T2 fast spin echo, sagittal and axial FLAIR, coronal T2 fast sp in echo, axial gradient echo, axial diffusion and ADC through the brain. After the administration of contrast, axial and coronal T1 spin echo with fat saturation through the brain. COMPARISON: None. FINDINGS: Image quality: Diagnostic. Some images are limited by patient motion artifacts. Approximately 1.3 cm AP by 1.1 cm CC by 0.9 cm transverse sella, suprasellar mass commonly represents pituitary adenoma or other lesion. Neurosurgical consult suggested. Ventricles and cortical sulci are mildly dilated commonly represents a pattern of atrophy. Aftv-ix-evgeewes areas of increased T2/FLAIR signal in the periventricular and deep white matter, com monly related to chronic small vessel ischemic changes. No MR evidence of intracranial hemorrhage, acute or subacute infarct. The orbits scalp, calvarium, paranasal sinuses, mastoid air cells, middle ear cavities within normal limits. IMPRESSION: Sella, suprasellar mass as discussed above commonly a pituitary adenoma or other lesion. Follow-up is needed Reviewed by: Ricci Frausto MD on 09/01/2024 12:37 PM PDT Approved by: Ricci Frausto MD on 09/01/2024 12:37 PM PDT Station ID: [id number]
[2024-09-01] MEDS ORDERED: LEVOTHYROXINE 100 MCG TABLET PO ONE (12:40)
--- NOTE | 2024-09-01 12:50 | PROVIDER PROGRESS NOTE ---
Progress Note Progress Note Progress Note: Patient wanting to leave AGAINST MEDICAL ADVICE. She states that we have not given her medications as she normally gets them. She wants her extended release morphine and she states that her Neurontin is not correctly ordered. She states that she takes 300 mg of Neurontin in the morning, 200 mg at midday, and 400 mg at bedtime. Her home medications were ordered this morning with the exception of her long-acting narcotics given that she is here for altered mental status and possible overuse of narcotics. She is insistent upon leaving. She states that she has called her significant other and that she will be leaving AGAINST MEDICAL ADVICE. I have informed her that the results of her MRI is pending and further diagnosis and treatment can follow after that. She states that she has numbness in her feet and she wants to leave..
[2024-09-01] MEDS: GABAPENTIN 100 MG CAPSULE PO SCH (13:42)
[2024-09-01] MEDS: LEVOTHYROXINE 100 MCG TABLET PO SCH (13:42)
[2024-09-01] MEDS: lisinopriL 5 MG TABLET PO SCH (13:42)
[2024-09-01] MEDS: DULoxetine 60 MG CAPSULE PO SCH (13:42)
[2024-09-01] MEDS ORDERED: GABAPENTIN 300 MG CAPSULE PO SCH (14:00)
[2024-09-01] MEDS ORDERED: GABAPENTIN 400 MG CAPSULE PO SCH (21:00)
[2024-09-01] MEDS ORDERED: QUEtiapine 100 MG TABLET PO SCH (21:00)
--- NOTE | 2024-09-01 21:36 | Discharge Summary ---
"Discharge Summary Admit Date: 08/31/24 Discharge Date: 09/01/24 Discharging Provider: Ramona Gill PA-C Primary Care Provider: Vish Code Status: Do Not Attempt Resuscitation DIAGNOSES Discharge Diagnoses with Status of Each Condition: Patient left AGAINST MEDICAL ADVICE altered mental status, resolved Headache, improved but not resolved Acute hyponatremia, improved but not resolved HPI History of Present Illness: 58-year-old female with a past medical history of type 2 diabetes with neuropathy, nicotine dependence, GERD, spinal stenosis with chronic pain, long- term opiate use, hypothyroidism, hypertension, bipolar disorder presents to the emergency department with complaint of altered mental status via EMS. Her significant other states she has been in the bed for about 24 hours. They also tell me she has had a headache that has been present for 2 weeks. It is retro- orbital and bitemporal. She relates this to her chronic neck pain. She has had several neck surgeries. She states that her right arm is tingling but only when she goes to sleep. She is having nausea and vomiting. Her significant other tells me that she has had several falls or near falls in the last 2 weeks. She takes extended release morphine 30 mg twice daily and Xanax 1 mg 3 times daily. Her significant other tells me that she has not taken anything in addition to these medications. She is taking her medications as prescribed. She has been taking extra Advil to try to help with her migraine. She denies any cough any fevers. She has her chronic neck pain and stiffness which is not any worse. She states that she is sensitive to light but she does not have any visual disturbances. She has had nausea with no vomiting. She has chronic constipation which is not any worse than usual. She denies any extremity swelling she is not having any shortness of breath she is not having any paroxysmal nocturnal dyspnea. Socially she does not drink alcohol she vapes nicotine but does not use any marijuana products. She lives with her partner of 28 years. Her CODE STATUS is DNR/DNI. Her significant other affirms this. CONSULTS | PROCEDURES Procedures: Head CT: No acute intracranial pathology. Focal soft tissue prominence in the sella and suprasellar region. MRI recommended MRI brain: Sellar, suprasellar mass likely a pituitary adenoma. Neurosurgical consultation is advised. HOSPITAL COURSE Hospital Course: 58-year-old female with extensive past medical history including chronic pain on long-acting opiates and benzodiazepines, diabetes, nicotine dependence, GERD, chronic back pain due to spinal stenosis, hypertension and bipolar disorder presented to the emergency department via EMS with complaints of altered mental status. Her boyfriend of many many years states that she had been unable to get out of bed for about 24 hours and he was worried about her. She had had a headache that had been present for 2 weeks she stated that it was retro-orbital and bitemporal but did not affect her vision at all she relates her headache to her chronic neck pain. Her boyfriend states that she has been unsteady on her feet and that he has stopped her from falling several times. She has an abrasion on her nose that is unexplained although her boyfriend is relatively certain this must been caused by one of her falls. She was admitted overnight for telemetry monitoring, neurochecks and completion of MRI of the brain. She was prescribed short acting narcotics. Long-acting narcotics were held due to her altered mental status. She was also prescribed antiemetics, benzodiazepines. Her home medications were not reconciled into the next morning due to the hours which she was admitted. The next day the patient complained that her not Neurontin had not been correctly ordered. She takes 300 mg in the morning, 200 mg in the middle of the day and 400 mg at night. Her Neurontin was ordered 300 mg 3 times daily. Because of this she stated that she would be leaving AMA. Luckily she did leave AGAINST MEDICAL ADVICE after her MRI images were completed. MRI was resulted later in the day. I called the patient at her listed number she answered the phone and stated she was doing fine. I reviewed her MRI findings and indicated to her that she might have a pituitary adenoma and that she will need referral for specialty care. She complained to me again about her home medications not being ordered and I advised her to please call her PCP the next business day in order to arrange follow-up. I also informed her that I would be sending reports to her PCP so that he could assist her with follow-up. She has a history of chronic hyponatremia (between 130-135) however her sodium was 124 at the time of admission. It had corrected to 130 by the next morning with administration of a small amount of IV fluids in the emergency department and free water restriction of 1500 mL a day. I would strongly recommend repeat BMP as soon as PCP is able to follow-up with her. I would also strongly recommend neurosurgical consultation and needed labs for pituitary tumor. Laboratory Tests 08/31/24 09/01/24 17:15 05:56 Sodium 124 L 130 L ALLERGIES Allergies Allergy/AdvReac Type Severity Reaction Status Date / Time No Known Drug Allergies Allergy Verified 08/31/24 15:44 MEDICATIONS Ambulatory Orders Medication Instructions Recorded Confirmed levothyroxine 200 mcg tablet 200 mcg PO DAILY 06/16/13 09/01/24 (Levoxyl) insulin syringe-needle U-100 0.3 ##30 09/05/14 07/04/24 mL 29 gauge ondansetron 4 mg disintegrating 4 mg translingual Q6H PRN Nausea / 09/15/22 09/01/24 tablet Vomiting #10 tabs polyethylene glycol 3350 17 17 g PO DAILY PRN Constipation #1 09/15/22 09/01/24 gram/dose oral powder ea esomeprazole magnesium 40 mg 40 mg PO QDAY 04/03/24 09/01/24 capsule,delayed release naloxegol 25 mg tablet (Movantik) 25 mg PO QAM 04/03/24 09/01/24 gabapentin 300 mg capsule 300 mg PO TID #240 caps 05/11/24 09/01/24 quetiapine 200 mg tablet 600 mg (3 x 200 mg) PO QPM #270 05/18/24 09/01/24 tabs tizanidine 4 mg tablet 4 mg PO BID #60 tabs 06/05/24 09/01/24 lisinopril 10 mg tablet 10 mg PO QDAY #90 tabs 07/04/24 09/01/24 duloxetine 60 mg capsule,delayed 120 mg (2 x 60 mg) PO QDAY #180 07/18/24 09/01/24 release (Cymbalta) caps semaglutide 0.25 mg or 0.5 mg (2 0.5 mg (0.736 mL) subcut QWEEK #9 07/26/24 09/01/24 mg/3 mL) subcutaneous pen injector mL (Ozempic) morphine 30 mg tablet,extended 30 mg PO BID #60 tabs 08/05/24 09/01/24 release alprazolam 1 mg tablet 1 mg PO TID PRN anxiety #84 tabs 08/07/24 09/01/24 metformin 500 mg tablet 500 mg PO BIDWM #180 tabs 08/19/24 09/01/24 Lactobacillus acidophilus 10 100 mmu cells PO DAILY 09/01/24 09/01/24 billion cell capsule (Probacap) atorvastatin 10 mg tablet 10 mg PO DAILY 09/01/24 09/01/24 ibuprofen 200 mg capsule (Advil 400 mg PO QID PRN pain 09/01/24 09/01/24 Migraine) PHYSICAL EXAM AT DISCHARGE General Appearance: positive Alert and Other (agitated) Physical Exam Other/Comments: Patient does not allow exam, but observed to be walking down the [place]are[address] at the time her signficant other arrives to take her home. LABS 09/01/24 05:56 09/01/24 05:56 FOLLOW UP Follow Up: BHAVNA Bryan TIME SPENT Time Spent in Discharge (Minutes): 35 Discharge Plan Discharge Patient Disposition: 07 Against Medical Advice Condition: Stable Prescriptions: No Action gabapentin 300 mg capsule 300 mg PO TID Qty: 240 5RF Rx Instructions: take 3 capsules by mouth every morning, 2 capsules every afternoon, and 4 capsules every night at bedtime. quetiapine 200 mg tablet 600 mg PO QPM Qty: 270 3RF tizanidine 4 mg tablet 4 mg PO BID Qty: 60 5RF duloxetine [Cymbalta] 60 mg capsule,delayed release(DR/EC) 120 mg PO QDAY Qty: 180 3RF Ozempic 0.25 mg or 0.5 mg (2 mg/3 mL) pen injector 0.5 mg subcut QWEEK Qty: 9 3RF Rx Instructions: for 4 weeks morphine 30 mg tablet extended release 30 mg PO BID Qty: 60 0RF alprazolam 1 mg tablet 1 mg PO TID PRN (Reason: anxiety) Qty: 84 2RF metformin 500 mg tablet 500 mg PO BIDWM Qty: 180 3RF levothyroxine [Levoxyl] 200 MCG tablet 200 mcg PO DAILY (DME) insulin syringe-needle U-100 1 EACH syringe 1 ea miscellaneous DAILY Qty: 30 0RF polyethylene glycol 3350 238 GM powder 17 g PO DAILY PRN (Reason: Constipation) Qty: 1 0RF ondansetron 4 MG tablet,disintegrating 4 mg translingual Q6H PRN (Reason: Nausea / Vomiting) Qty: 10 0RF atorvastatin 10 mg tablet 10 mg PO DAILY Rx Instructions: TAKE 1 TABLET BY MOUTH EVERY DAY ibuprofen [Advil Migraine] 200 mg capsule 400 mg PO QID PRN (Reason: pain) Patient Comments: for migraine Probacap 10 billion cell capsule 100 mmu cells PO DAILY lisinopril 10 mg tablet 10 mg PO QDAY Qty: 90 0RF Movantik 25 mg tablet 25 mg PO QAM Rx Instructions: must be taken on empty stomach; no food 1 hr after or 2-3 hrs before dose esomeprazole magnesium 40 mg capsule,delayed release(DR/EC) 40 mg PO QDAY Patient Comments: TAKE 1 CAPSULE BY MOUTH EVERY MORNING FOR HEARTBURN Interventions: Belongings Inventory Last Done: 09/01/24 00:08 Print Language: Czech"
[2024-09-02] MEDS ORDERED: PANTOPRAZOLE 40 MG TABLET PO SCH (07:00)
[2024-09-02] MEDS ORDERED: GABAPENTIN 300 MG CAPSULE PO SCH (09:00)
[2024-09-02] MEDS ORDERED: ATORVASTATIN 10 MG TABLET PO SCH (21:00)
== END 2024-09-01 13:22 | disposition left against medical advice (07) ==
LOC: MS2 15:19 → ED 15:19 → MS2 22:14
PROVIDERS: ADMIT Physician Assistant Medical; ATTEND Physician Assistant Medical
DX: Z79.84 Long term (current) use of oral hypoglycemic drugs; Z66 Do not resuscitate; R41.82 Altered mental status, unspecified; M54.2 Cervicalgia; M48.061 Spinal stenosis, lumbar region without neurogenic claudication; E87.1 Hypo-osmolality and hyponatremia; R51.9 Headache, unspecified; Z68.30 Body mass index [BMI] 30.0-30.9, adult; F17.290 Nicotine dependence, other tobacco product, uncomplicated; R11.2 Nausea with vomiting, unspecified; G89.29 Other chronic pain; K21.9 Gastro-esophageal reflux disease without esophagitis; Z53.29 Procedure and treatment not carried out because of patient's decision for other reasons; Z79.891 Long term (current) use of opiate analgesic; K59.09 Other constipation; Z79.85 Long-term (current) use of injectable non-insulin antidiabetic drugs; R26.81 Unsteadiness on feet; I10 Essential (primary) hypertension; E66.9 Obesity, unspecified; Z79.4 Long term (current) use of insulin; F31.9 Bipolar disorder, unspecified; D72.829 Elevated white blood cell count, unspecified; D49.7 Neoplasm of unspecified behavior of endocrine glands and other parts of nervous system; E11.42 Type 2 diabetes mellitus with diabetic polyneuropathy; Z91.81 History of falling; E03.9 Hypothyroidism, unspecified